=== PATIENT | male | born 1990 | race Two or more races ===

== ENCOUNTER 2022-07-24 12:08 | Emergency (ER) | payer MEDICAID, OTHER, SELFPAY ==
--- NOTE | ~2022-07-24 | XR_ITS ---
EXAMINATION: XR CHEST CLINICAL INFORMATION: Left-sided chest pain. COMPARISON: None TECHNIQUE: 2 views of the chest were obtained. FINDINGS: No significant abnormality is noted involving the heart, lungs, mediastinum, bony thorax or soft tissues. XR/XR chest 2V IMPRESSION: Unremarkable examination.
--- NOTE | 2022-07-24 12:11 | ECG_ITS ---
Test Reason : chest pain Blood Pressure : / mmHG Vent. Rate : 084 BPM Atrial Rate : 084 BPM P-R Int : 148 ms QRS Dur : 096 ms QT Int : 370 ms P-R-T Axes : 050 078 042 degrees QTc Int : 437 ms Normal sinus rhythm Normal ECG No previous ECGs available Referred By: Generic ED Physician Electronically Signed By:ROSALVA MILLER
[2022-07-24 12:22] VITALS: BP 148/85; PULSE 80; RESP 16; TEMP 36.6; O2SAT 98; BMI 32.5
--- NOTE | 2022-07-24 12:22 | ED_ITS ---
HPI - Chest Pain General Chief Complaint: Chest Pain Stated Complaint: Chest pain/Dizziness Time Seen by Provider: 07/24/22 13:29 Related Data Previous Rx's Medication Instructions Recorded hydrochlorothiazide 25 mg tablet 25 mg PO DAILY #30 tabs 07/24/22 Allergies Allergy/AdvReac Type Severity Reaction Status Date / Time No Known Allergies Allergy Verified 07/24/22 12:25 [facility] Past Medical History Medical History (Updated 07/25/22 @ 00:01 by Sharon Camacho) Hypertension Social History Social History Alcohol intake: current Alcohol intake frequency: holidays/special occasions only Smoked in Last 30 Days: No Use of substances other than those prescribed or required for medical reasons: No Advance Directives: No Advance Directives Information Provided: Yes Physical Exam Vital Signs: Vital Signs: Last Vital Signs Temp 97.8 F 07/24/22 12:22 Pulse 74 07/24/22 13:48 Resp 16 07/24/22 12:22 BP 149/90 H 07/24/22 13:48 Pulse Ox 98 07/24/22 12:22 O2 Del Method 07/24/22 12:22 BMI result Body Mass Index 32.5 Course Course Course Narrative: RME - 31 y/o male with history of gastritis who presents to the ER for evaluation of SOB, dizziness and left sided chest pains that radiate to his back for the last 3 weeks. Reports symptoms are constant. No cough or fevers. VSS in triage. Left sided chest pain is reproducible on exam, lungs are clear. Will check CXR and basic labs. EKG already done. Stable to go to waiting room until treatment room available. Medical Decision Making Lab Data 07/24/22 12:37 07/24/22 12:37 Labs: Lab Results 07/24/22 07/24/22 07/24/22 Range/Units 12:37 12:37 12:37 WBC 11.2 H (4.8-10.8) X10*3/uL RBC 5.42 (4.60-5.80) X10*6/uL Hgb 15.2 (14.0-18.0) g/dl Hct 45.0 (42.0-52.0) % MCV 83.0 (80.0-98.0) fL MCH 28.0 (27.0-33.0) pg MCHC 33.8 (31.0-36.0) g/dl RDW 13.5 (11.0-16.0) % Plt Count 528 H (160-400) X10*3/uL MPV 8.8 L (9.4-12.4) fL Immature Gran % (Auto) 0.3 (0.0-0.4) % Neut % (Auto) 55.6 (45-73) % Lymph % (Auto) 34.1 (20-40) % [place] % (Auto) 4.5 (2-11) % Eos % (Auto) 4.7 H (0-4) % Baso % (Auto) 0.8 (0-2) % Lymph # (Auto) 3.8 (1.2-4.9) X10*3/uL [place] # (Auto) 0.5 (0.1-1.2) X10*3/uL Eos # (Auto) 0.5 H (0.0-0.4) X10*3/uL Baso # (Auto) 0.1 (0.0-0.2) X10*3/uL Abs Immat Gran (auto) 0.03 (0.00-0.03) X10*3/uL Absolute Neuts (auto) 6.2 (2.0-8.3) x10*3/uL Absolute Nucleated RBC 0.000 (0.0-0.012) X10*3/uL Nucleated RBC % (auto) 0.0 (0.0-0.2) /100WBC D-Dimer High Sensitivty NG/ML Sodium 140 (135-145) mmol/L Potassium 3.9 (3.3-5.1) mmol/L Chloride 107 (96-108) mmol/L Carbon Dioxide 24 (22-29) mmol/L Anion Gap 13 (12-20) BUN 8 L (9-16) mg/dL Creatinine 0.70 (0.5-1.4) mg/dL Estim Creat Clear Calc 151.9 Estimated GFR > 60 Random Glucose 114 (60-115) mg/dL Calcium 9.4 (8.4-10.2) mg/dL Magnesium 1.9 (1.6-2.6) mg/dL Total Bilirubin 0.9 (0.0-1.0) mg/dL Direct Bilirubin 0.2 (0.0-0.5) mg/dL AST 26 (5-37) U/L ALT 53 H (0-40) U/L Alkaline Phosphatase 124 H (39-117) U/L Troponin I High Sens < 3.5 (<3.5-35.0) ng/L Total Protein 7.4 (6.5-8.0) g/dL Albumin 4.6 (3.5-5.0) g/dL Influenza Type A (PCR) (Negative) Influenza Type B (PCR) (Negative) RSV RNA Qual (PCR) (Negative) SARS-CoV-2 RNA (RT-PCR) (Negative) 07/24/22 07/24/22 Range/Units 12:37 14:14 WBC (4.8-10.8) X10*3/uL RBC (4.60-5.80) X10*6/uL Hgb (14.0-18.0) g/dl Hct (42.0-52.0) % MCV (80.0-98.0) fL MCH (27.0-33.0) pg MCHC (31.0-36.0) g/dl RDW (11.0-16.0) % Plt Count (160-400) X10*3/uL MPV (9.4-12.4) fL Immature Gran % (Auto) (0.0-0.4) % Neut % (Auto) (45-73) % Lymph % (Auto) (20-40) % [place] % (Auto) (2-11) % Eos % (Auto) (0-4) % Baso % (Auto) (0-2) % Lymph # (Auto) (1.2-4.9) X10*3/uL [place] # (Auto) (0.1-1.2) X10*3/uL Eos # (Auto) (0.0-0.4) X10*3/uL Baso # (Auto) (0.0-0.2) X10*3/uL Abs Immat Gran (auto) (0.00-0.03) X10*3/uL Absolute Neuts (auto) (2.0-8.3) x10*3/uL Absolute Nucleated RBC (0.0-0.012) X10*3/uL Nucleated RBC % (auto) (0.0-0.2) /100WBC D-Dimer High Sensitivty < 150 NG/ML Sodium (135-145) mmol/L Potassium (3.3-5.1) mmol/L Chloride (96-108) mmol/L Carbon Dioxide (22-29) mmol/L Anion Gap (12-20) BUN (9-16) mg/dL Creatinine (0.5-1.4) mg/dL Estim Creat Clear Calc Estimated GFR Random Glucose (60-115) mg/dL Calcium (8.4-10.2) mg/dL Magnesium (1.6-2.6) mg/dL Total Bilirubin (0.0-1.0) mg/dL Direct Bilirubin (0.0-0.5) mg/dL AST (5-37) U/L ALT (0-40) U/L Alkaline Phosphatase (39-117) U/L Troponin I High Sens (<3.5-35.0) ng/L Total Protein (6.5-8.0) g/dL Albumin (3.5-5.0) g/dL Influenza Type A (PCR) NEGATIVE (Negative) Influenza Type B (PCR) NEGATIVE (Negative) RSV RNA Qual (PCR) NEGATIVE (Negative) SARS-CoV-2 RNA (RT-PCR) NEGATIVE (Negative) Discharge Plan Discharge Clinical Impression: Atypical chest pain, Chronic hypertension Patient Disposition: Home, Self-Care Instructions: Chest Pain (ED), Hypertension (ED) Additional Instructions: Please follow-up with your primary care physician tomorrow. If you have any worsening or new symptoms, please return to the emergency room or call 911 Prescriptions: New hydrochlorothiazide 25 mg tablet 25 mg PO DAILY Qty: 30 2RF Interventions: ED Discharge Assessment Last Done: 07/24/22 14:59 Discharge Date/Time: 07/24/22 15:11
[2022-07-24 12:43] LABS: MANUAL DIFF FLAG NO
[2022-07-24 12:45] LABS: Basophils Absolute Auto 0.1 X10*3/uL (0.0-0.2); Basophils Percent Auto 0.8 % (0-2); Eosinophils Absolute Auto 0.5 X10*3/uL (0.0-0.4); Eosinophils Percent Auto 4.7 % (0-4); Hemoglobin 15.2 g/dl (14.0-18.0); Imm Gran Abs Auto 0.03 X10*3/uL (0.00-0.03); Imm Gran Pct Auto 0.3 % (0.0-0.4); Lymphocytes Absolute Auto 3.8 X10*3/uL (1.2-4.9); Lymphocytes Percent Auto 34.1 % (20-40); Mean Corpuscular HGB Conc 33.8 g/dl (31.0-36.0); Mean Platelet Volume 8.8 fL (9.4-12.4); Monocytes Absolute Auto 0.5 X10*3/uL (0.1-1.2); Monocytes Percent Auto 4.5 % (2-11); Neutrophils Absolute Auto 6.2 x10*3/uL (2.0-8.3); Neutrophils Percent Auto 55.6 % (45-73); Platelet Count 528 X10*3/uL (160-400); Red Blood Count 5.42 X10*6/uL (4.60-5.80); Red Cell Distribution Width 13.5 % (11.0-16.0); White Blood Count 11.2 X10*3/uL (4.8-10.8)
[2022-07-24 12:59] LABS: Alanine Aminotransferase 53 U/L (0-40); Albumin Level 4.6 g/dL (3.5-5.0); Alkaline Phosphatase 124 U/L (39-117); Anion Gap 13 (12-20); Aspartate Amino Transferase 26 U/L (5-37); Bilirubin Direct 0.2 mg/dL (0.0-0.5); Bilirubin Total 0.9 mg/dL (0.0-1.0); Blood Urea Nitrogen 8 mg/dL (9-16); Calcium 9.4 mg/dL (8.4-10.2); Carbon Dioxide 24 mmol/L (22-29); Chloride 107 mmol/L (96-108); Creatinine Clr Calc Pharmacy 151.9; Estimated Glomerular Filt Rate > 60; Glucose Random 114 mg/dL (60-115); Magnesium 1.9 mg/dL (1.6-2.6); Potassium 3.9 mmol/L (3.3-5.1); Sodium 140 mmol/L (135-145); Total Protein 7.4 g/dL (6.5-8.0)
[2022-07-24 13:08] LABS: Troponin-I High Sensitivity < 3.5 ng/L (<3.5-35.0)
[2022-07-24 13:21] LABS: Influenza A PCR NEGATIVE (Negative); Influenza B PCR NEGATIVE (Negative); Resp Syncy Virus RNA Qual PCR NEGATIVE (Negative); SARS COV2 PCR INHOUSE NEGATIVE (Negative)
[2022-07-24 13:44] VITALS: BP 148/73; PULSE 81
--- NOTE | 2022-07-24 13:44 | ED_ITS ---
HPI - Chest Pain General Chief Complaint: Chest Pain Stated Complaint: Chest pain/Dizziness Time Seen by Provider: 07/24/22 13:29 Source: patient Mode of arrival: ambulatory Limitations: no limitations History of Present Illness HPI narrative: Patient comes to the emergency room complaining of 3 weeks of chest pain and shortness of breath. Patient states that at times he has palpitations, and at night sometimes he feels short of breath. Patient states the pain is constant, nonradiating. Patient stated that he feels dizzy all the time. Patient explains dizziness as feeling weak. Patient denies room spinning, no lightheadedness. Patient reports that he has not seen his primary care physician in over a year. Patient moved from [facility] approximately 1 year ago. Patient states that he is supposed to be taking blood pressure medications patient, but [place] got [place] he has not been able to take his meds. Patient denies any recent URI, GI or UTI symptoms. Related Data Previous Rx's Medication Instructions Recorded hydrochlorothiazide 25 mg tablet 25 mg PO DAILY #30 tabs 07/24/22 Allergies Allergy/AdvReac Type Severity Reaction Status Date / Time No Known Allergies Allergy Verified 07/24/22 12:25 Review of Systems Review of Systems: Constitutional : No Weight loss, No Fever, No Chills, No Night Sweats, complaining of weakness, no malaise ENT/Mouth : No Hearing loss, No Ear Pain, No Nasal Congestion, No Sinus Pain, No Hoarseness, No sore throat, No Rhinorrhea, No Swallowing Difficulty Eyes: No Eye Pain, No Swelling, No Redness, No Foreign Body, No Discharge, No Vision Changes Cardiovascular : Complaining of constant left-sided chest pain, palpitations intermittently Respiratory : No Cough, No Sputum, No Wheezing, No Smoke Exposure, No Dyspnea Gastrointestinal : No Nausea, No Vomiting, No Diarrhea, No Constipation, No abdominal Pain, No Hematochezia, No Melena Genitourinary : no irregular bleeding, No Dysuria, No Urinary Frequency, No Hematuria, No Urinary Incontinence, No Urgency, No Flank Pain, No Urinary Flow Changes, No Hesitancy Musculoskeletal : No joint pain, No Myalgias, No Joint Swelling Skin : No Skin Lesions, No rash Neuro : No Weakness, No Numbness, No Paresthesias, No Loss of Consciousness, No Dizziness, No Headache Psych : No Anxiety/Panic, No Depression, No SI/HI/AH/VH, No Social Issues, Heme/Lymph: No Bruising, No Bleeding,No Lymphadenopathy Endocrine : No Polyuria, No Polydipsia, No Temperature Intolerance [facility] Past Medical History Medical History (Updated 07/24/22 @ 14:56 by Teresa Martin MD) Hypertension Social History Social History Alcohol intake: current Alcohol intake frequency: holidays/special occasions only Smoked in Last 30 Days: No Use of substances other than those prescribed or required for medical reasons: No Advance Directives: No Advance Directives Information Provided: Yes Physical Exam Vital Signs: Vital Signs: Last Vital Signs Temp 97.8 F 07/24/22 12:22 Pulse 74 07/24/22 13:48 Resp 16 07/24/22 12:22 BP 149/90 H 07/24/22 13:48 Pulse Ox 98 07/24/22 12:22 O2 Del Method 07/24/22 12:22 BMI result Body Mass Index 32.5 Const: Other: Appearance: Alert. Oriented X3. No acute distress. Eyes: Pupils equal, round and reactive to light. ENT: Pharynx normal. Neck: Normal inspection. Neck supple. No lymph nodes noted. No crepitus CVS: Normal heart rate and rhythm. Pulses normal. Normal S1 and S2 Respiratory: No respiratory distress. Breath sounds normal. No Wheezing. No rales Abdomen: Soft and nontender. No rigidity. No distention. Skin: Skin warm and dry. Normal skin color. Normal skin turgor. Extremities: No lower extremity edema. No Lacerations. No Rash Neuro: Oriented X 3. No motor deficit. No sensory deficit. Moving all extremities. No slurred speech. CN 2 through 12 grossly intact Psych: calm, cooperative, normal affect Course Course Course Narrative: -patient's troponin negative. EKG within normal limits, no acute abnormalities -D-dimer and chest x-ray pending -orthostatic vitals pending Medical Decision Making Medical Decision Making MDM Narrative: -patient's troponin negative, D-dimer negative, chest x-ray negative, EKG within normal limits, orthostatic vitals negative. -patient's blood pressure elevated, 149/90. Patient will be started on hydrochlorothiazide. -wells criteria for pulmonary embolism score is 0 Differential Diagnosis Differential Diagnoses: The differential diagnosis associated with the presentation includes (ACS, costochondritis, pneumonia, PE) Lab Data MDM Lab Attestation statement: I reviewed the patient's lab results. 07/24/22 12:37 07/24/22 12:37 Labs: Lab Results 07/24/22 07/24/22 07/24/22 Range/Units 12:37 12:37 12:37 WBC 11.2 H (4.8-10.8) X10*3/uL RBC 5.42 (4.60-5.80) X10*6/uL Hgb 15.2 (14.0-18.0) g/dl Hct 45.0 (42.0-52.0) % MCV 83.0 (80.0-98.0) fL MCH 28.0 (27.0-33.0) pg MCHC 33.8 (31.0-36.0) g/dl RDW 13.5 (11.0-16.0) % Plt Count 528 H (160-400) X10*3/uL MPV 8.8 L (9.4-12.4) fL Immature Gran % (Auto) 0.3 (0.0-0.4) % Neut % (Auto) 55.6 (45-73) % Lymph % (Auto) 34.1 (20-40) % [place] % (Auto) 4.5 (2-11) % Eos % (Auto) 4.7 H (0-4) % Baso % (Auto) 0.8 (0-2) % Lymph # (Auto) 3.8 (1.2-4.9) X10*3/uL [place] # (Auto) 0.5 (0.1-1.2) X10*3/uL Eos # (Auto) 0.5 H (0.0-0.4) X10*3/uL Baso # (Auto) 0.1 (0.0-0.2) X10*3/uL Abs Immat Gran (auto) 0.03 (0.00-0.03) X10*3/uL Absolute Neuts (auto) 6.2 (2.0-8.3) x10*3/uL Absolute Nucleated RBC 0.000 (0.0-0.012) X10*3/uL Nucleated RBC % (auto) 0.0 (0.0-0.2) /100WBC D-Dimer High Sensitivty NG/ML Sodium 140 (135-145) mmol/L Potassium 3.9 (3.3-5.1) mmol/L Chloride 107 (96-108) mmol/L Carbon Dioxide 24 (22-29) mmol/L Anion Gap 13 (12-20) BUN 8 L (9-16) mg/dL Creatinine 0.70 (0.5-1.4) mg/dL Estim Creat Clear Calc 151.9 Estimated GFR > 60 Random Glucose 114 (60-115) mg/dL Calcium 9.4 (8.4-10.2) mg/dL Magnesium 1.9 (1.6-2.6) mg/dL Total Bilirubin 0.9 (0.0-1.0) mg/dL Direct Bilirubin 0.2 (0.0-0.5) mg/dL AST 26 (5-37) U/L ALT 53 H (0-40) U/L Alkaline Phosphatase 124 H (39-117) U/L Troponin I High Sens < 3.5 (<3.5-35.0) ng/L Total Protein 7.4 (6.5-8.0) g/dL Albumin 4.6 (3.5-5.0) g/dL Influenza Type A (PCR) (Negative) Influenza Type B (PCR) (Negative) RSV RNA Qual (PCR) (Negative) SARS-CoV-2 RNA (RT-PCR) (Negative) 07/24/22 07/24/22 Range/Units 12:37 14:14 WBC (4.8-10.8) X10*3/uL RBC (4.60-5.80) X10*6/uL Hgb (14.0-18.0) g/dl Hct (42.0-52.0) % MCV (80.0-98.0) fL MCH (27.0-33.0) pg MCHC (31.0-36.0) g/dl RDW (11.0-16.0) % Plt Count (160-400) X10*3/uL MPV (9.4-12.4) fL Immature Gran % (Auto) (0.0-0.4) % Neut % (Auto) (45-73) % Lymph % (Auto) (20-40) % [place] % (Auto) (2-11) % Eos % (Auto) (0-4) % Baso % (Auto) (0-2) % Lymph # (Auto) (1.2-4.9) X10*3/uL [place] # (Auto) (0.1-1.2) X10*3/uL Eos # (Auto) (0.0-0.4) X10*3/uL Baso # (Auto) (0.0-0.2) X10*3/uL Abs Immat Gran (auto) (0.00-0.03) X10*3/uL Absolute Neuts (auto) (2.0-8.3) x10*3/uL Absolute Nucleated RBC (0.0-0.012) X10*3/uL Nucleated RBC % (auto) (0.0-0.2) /100WBC D-Dimer High Sensitivty < 150 NG/ML Sodium (135-145) mmol/L Potassium (3.3-5.1) mmol/L Chloride (96-108) mmol/L Carbon Dioxide (22-29) mmol/L Anion Gap (12-20) BUN (9-16) mg/dL Creatinine (0.5-1.4) mg/dL Estim Creat Clear Calc Estimated GFR Random Glucose (60-115) mg/dL Calcium (8.4-10.2) mg/dL Magnesium (1.6-2.6) mg/dL Total Bilirubin (0.0-1.0) mg/dL Direct Bilirubin (0.0-0.5) mg/dL AST (5-37) U/L ALT (0-40) U/L Alkaline Phosphatase (39-117) U/L Troponin I High Sens (<3.5-35.0) ng/L Total Protein (6.5-8.0) g/dL Albumin (3.5-5.0) g/dL Influenza Type A (PCR) NEGATIVE (Negative) Influenza Type B (PCR) NEGATIVE (Negative) RSV RNA Qual (PCR) NEGATIVE (Negative) SARS-CoV-2 RNA (RT-PCR) NEGATIVE (Negative) Independent Interpretation I performed an independent interpretation of an: EKG (EKG my interpretation: Normal sinus rhythm, heart rate 84, no ST segment depression or elevation, no T- wave inversion, QTC 437) and Plain X-Ray (My chest x-ray interpretation:) Radiology Impression Discussion of test interpretation with radiology: I have reviewed the radiologist's reading. Radiologist Impression: FINDINGS: No significant abnormality is noted involving the heart, lungs, mediastinum, bony thorax or soft tissues. XR/XR chest 2V IMPRESSION: Unremarkable examination. Discharge Plan Discharge Clinical Impression: Atypical chest pain, Chronic hypertension Patient Disposition: Home, Self-Care Instructions: Chest Pain (ED), Hypertension (ED) Additional Instructions: Please follow-up with your primary care physician tomorrow. If you have any worsening or new symptoms, please return to the emergency room or call 911 Prescriptions: New hydrochlorothiazide 25 mg tablet 25 mg PO DAILY Qty: 30 2RF
[2022-07-24 13:46] VITALS: BP 160/89; PULSE 70
[2022-07-24 13:48] VITALS: BP 149/90; PULSE 74
--- NOTE | 2022-07-24 14:06 | PC.NURSE ---
a&ox3, supervisory aide used, ortho stats done, head to toe assessment done. pt spoke to provider, awaiting lab results, call pruett in reach. will continue to monitor.
[2022-07-24 14:33] LABS: D Dimer High Sensitivity < 150 NG/ML
== END 2022-07-24 15:11 | disposition home or self-care (01) ==
PROVIDERS: Physician Assistant; Emergency Provider Emergency Medicine
DX: R07.89 Other chest pain (principal); I10 Essential (primary) hypertension; Z20.822 Contact with and (suspected) exposure to COVID-19; Z20.828 Contact with and (suspected) exposure to other viral communicable diseases
CPT/HCPCS: 0241U; 36415; 71046; 80048; 80076; 83735; 84484; 85025; 85379; 93005; 99283; 99285

== ENCOUNTER 2022-07-31 12:06 | Emergency (ER) | payer MEDICAID, OTHER, SELFPAY ==
--- NOTE | ~2022-07-31 | CT_ITS ---
EXAMINATION: CT HEAD WITHOUT IV CONTRAST INDICATION: Dizziness and blurry vision. COMPARISON: None available. TECHNIQUE: Multidetector CT acquisitions of the head was obtained without IV contrast. This CT examination was performed using dose optimization techniques as appropriate, variously including the following: *Automated exposure control *Adjustment of mA and/or kV according to patient size (this includes techniques or standardized protocols for targeted exams where dose is matched to indication/reason for exam; i.e. extremities or head) *Use of iterative reconstruction technique FINDINGS: There is no intracranial hemorrhage, hydrocephalus, extra-axial surface collection, midline shift, or other herniation pattern. Brown to white matter differentiation is diffusely maintained without evidence of an evolved acute territorial infarct. The basilar cisterns are preserved. No significant soft tissue abnormality. No acute osseous abnormality. The paranasal sinuses and the mastoid air cells are well aerated. CT/CT head/brain wo IV con IMPRESSION: No acute intracranial abnormality.
--- NOTE | ~2022-07-31 | XR_ITS ---
EXAMINATION: XR CHEST 2 VIEWS CLINICAL INFORMATION: Chest pain. COMPARISON: None. TECHNIQUE: Frontal and lateral views of the chest were obtained. FINDINGS: The heart, great vessels, pulmonary vasculature and mediastinum are normal. The lungs show no focal infiltrate, effusion or pneumothorax. There is no acute osseous abnormality. XR/XR chest 2V IMPRESSION: No active cardiopulmonary disease.
[2022-07-31 12:31] VITALS: BP 154/93; PULSE 75; RESP 18; TEMP 36.8; O2SAT 98; BMI 33.6
--- NOTE | 2022-07-31 12:31 | ED_ITS ---
HPI - Chest Pain General Chief Complaint: Arrhythmia/Palpitations <Domitila Danielson NP - Last Filed: 07/31/22 12:34> Stated Complaint: chest pressure rapid heart beat <Domitila Danielson NP - Last Filed: 07/31/22 12:34> Time Seen by Provider: 07/31/22 16:27 <Domitila Danielson NP - Last Filed: 07/31/22 12:34> Source: patient <NEREIDA Valladares - Last Filed: 07/31/22 17:56> Mode of arrival: ambulatory <NEREIDA Valladares - Last Filed: 07/31/22 17:56> History of Present Illness HPI narrative: 31-year-old male with past medical history of hypertension recently started on HCTZ presenting to the ED complaining of chest pain, shortness of breath, palpitations, room spinning dizziness worse with position changes, headache, blurry vision x years worsening over the past 2 days. Patient was seen and treated in our ED 07/24/2022 for similar symptoms and had negative workup. Denies abdominal pain, nausea/ vomiting, pedal edema <NEREIDA Valladares - Last Filed: 07/31/22 17:56> MD complaint: chest pain <NEREIDA Valladares Last Filed: 07/31/22 17:56> Onset (ago): year(s) <NEREIDA Valladares Last Filed: 07/31/22 17:56> Related Data Home Medications: Previous Rx's Medication Instructions Recorded hydrochlorothiazide 25 mg tablet 25 mg PO DAILY #30 tabs 07/24/22 <Domitila Danielson NP - Last Filed: 07/31/22 12:34> Allergies/Adverse Reactions: Allergies Allergy/AdvReac Type Severity Reaction Status Date / Time No Known Allergies Allergy Verified 07/24/22 12:25 <Domitila Danielson NP - Last Filed: 07/31/22 12:34> Review of Systems Review of Systems: Constitutional: No Fever, No Chills, No Fatigue, No Malaise ENT/Mouth: No Ear Pain, No Nasal Congestion, No sore throat, No Rhinorrhea, No Swallowing Difficulty Eyes: No Eye Pain, No Swelling, No Redness, No Discharge, + Vision Changes Cardiovascular: + Chest Pain, + SOB, No Edema, + Palpitations Respiratory: No Cough, No Sputum, No Wheezing, No Smoke Exposure, No Dyspnea Gastrointestinal: No Nausea, No Vomiting, No Diarrhea, No Constipation, No Abdominal pain Genitourinary: No Dysuria, No Urinary Frequency, No Hematuria, No Urinary Incontinence/retention, No Flank Pain Musculoskeletal: No joint pain, No Myalgias, No Joint Swelling Skin: No Skin Lesions, No rash Neuro: No Weakness, No Numbness, No Paresthesias, No Loss of Consciousness, + Dizziness, + Headache <NEREIDA Valladares - Last Filed: 07/31/22 17:56> Yes all other systems are reviewed and are negative <NEREIDA Valladares - Last Filed: 07/31/22 17:56> Constitutional: Constitutional: Reports as per HPI <NEREIDA Valladares - Last Filed: 07/31/22 17:56> Neurologic: Denies Abnormal speech present <NEREIDA Valladares - Last Filed: 07/31/22 17:56> [facility] Past Medical History Attestation statement: The following information was validated with the patient. <NEREIDA Valladares - Last Filed: 07/31/22 17:56> Medical History: Medical History Hypertension <Domitila Danielson NP - Last Filed: 07/31/22 12:34> Social History Social History: Social History Alcohol intake: current Alcohol intake frequency: holidays/special occasions only Smoked in Last 30 Days: No Use of substances other than those prescribed or required for medical reasons: No Advance Directives: No Advance Directives Information Provided: Yes <Domitila Danielson NP - Last Filed: 07/31/22 12:34> Physical Exam Vital Signs: Vital Signs: Last Vital Signs Temp 98.3 F 07/31/22 12:31 Pulse 65 07/31/22 16:45 Resp 20 07/31/22 16:37 BP 132/87 07/31/22 16:42 Pulse Ox 99 07/31/22 16:37 O2 Del Method 07/31/22 16:37 BMI result Body Mass Index 33.6 <Domitila Danielson NP - Last Filed: 07/31/22 12:34> Vital Signs: Last Vital Signs Temp 98.3 F 07/31/22 12:31 Pulse 65 07/31/22 16:45 Resp 20 07/31/22 16:37 BP 132/87 07/31/22 16:42 Pulse Ox 99 07/31/22 16:37 O2 Del Method 07/31/22 16:37 BMI result Body Mass Index 33.6 <NEREIDA Valladares - Last Filed: 07/31/22 17:56> Const: General: cooperative, healthy appearing, comfortable and no acute distress <NEREIDA Valladares - Last Filed: 07/31/22 17:56> Orientation/consciousness: patient oriented x3 <NEREIDA Valladares - Last Filed: 07/31/22 17:56> Limitations: no limitations <NEREIDA Valladares - Last Filed: 07/31/22 17:56> HEENT: Head: Yes normal to inspection and Yes atraumatic <NEREIDA Valladares - Last Filed: 07/31/22 17:56> Ears: hearing grossly normal bilaterally <NEREIDA Valladares - Last Filed: 07/31/22 17:56> General nose exam: Normal external nose present <NEREIDA Valladares - Last Filed: 07/31/22 17:56> Face and sinus: Yes normal facial exam <NEREIDA Valladares - Last Filed: 07/31/22 17:56> Throat: Yes posterior oropharynx normal <NEREIDA Valladares - Last Filed: 07/31/22 17:56> Eyes: General: appearance normal, both eyes and all related structures <NEREIDA Valladares - Last Filed: 07/31/22 17:56> Pupils: Equal, round and reactive pupils present <NEREIDA Valladares - Last Filed: 07/31/22 17:56> EOM: EOMs intact bilaterally <NEREIDA Valladares - Last Filed: 07/31/22 17:56> Neck: Neck: Yes normal visual inspection and Yes no meningeal signs <Hillary Dowell PA - Last Filed: 07/31/22 17:56> Chest: Chest palpation & inspection: normal inspection of the chest, no crepitus and no tenderness <Hillary Dowell PA - Last Filed: 07/31/22 17:56> Resp: Effort & Inspection: normal respiratory effort and no respiratory distress <Hillary Dowell PA - Last Filed: 07/31/22 17:56> Auscultation: clear to auscultation bilaterally, no crackles, no rales, no rhonchi and no wheezes <Hillary Dowell PA - Last Filed: 07/31/22 17:56> Cardio: Rate: regular rate <Hillary Dowell PA - Last Filed: 07/31/22 17:56> Heart sounds: S1 normal heart sound present and S2 normal heart sound present <Hillary Dowell PA - Last Filed: 07/31/22 17:56> GI: Inspection: Yes normal to inspection <Hillary Dowell PA - Last Filed: 07/31/22 17:56> Palpation (GI): Soft to palpation, nontender, no guarding and not rigid <Hilalry Dowell PA - Last Filed: 07/31/22 17:56> Skin: Rashes: no rashes <Hillary Dowell PA - Last Filed: 07/31/22 17:56> Wounds: no wounds <Hillary Dowell PA - Last Filed: 07/31/22 17:56> Neuro: General: patient oriented x3, gait normal, tone normal, moves all extremities, no meningeal signs, no focal motor deficits and CN's II-XI intact bilaterally <Hillary Dowell PA - Last Filed: 07/31/22 17:56> Cranial nerves: Yes CN's II-XII intact bilaterally and Yes Equal, round and reactive pupils present <Hillary Poulwinnie PA - Last Filed: 07/31/22 17:56> Cognition (Neuro): normal cognition <Hillary Poulwinnie PA - Last Filed: 07/31/22 17:56> Speech: No Abnormal speech present <Hillary Dowell PA - Last Filed: 07/31/22 17:56> Gait exam (Neuro): Normal gait present <NEREIDA Valladares - Last Filed: 07/31 17:56> Motor exam (neuro): 5/5 motor strength present throughout and Pronator motor function not present <NEREIDA Valladares - Last Filed: 07/31/22 17:56> Coordination: [id number] test normal <NEREIDA Valladares - Last Filed: 07/31/22 17:56> Romberg Test: Negative <NEREIDA Valladares - Last Filed: 07/31/22 17:56> Extrem: General: Yes normal to inspection, Yes no pedal edema and Yes no calf tenderness <NEREIDA Valladares - Last Filed: 07/31/22 17:56> Course Course Course Narrative: This is rapid medical exam. Deferred additional HPI, ROS, PE to primary provider. 31 yo male with history of gastritis, HLD here with complaints of dizziness, chest pain, palpitations x years, worsened Sunday. Will need labs, EKG, CXR, COVID testing. VSS <Domitila Danielson NP - Last Filed: 07/31/22 12:34> This is rapid medical exam. Deferred additional HPI, ROS, PE to primary provider. 31 yo male with history of gastritis, HLD here with complaints of dizziness, chest pain, palpitations x years, worsened Sunday. Will need labs, EKG, CXR, COVID testing. VSS -1651-- no leukocytosis. Troponin negative. Total bilirubin mildly elevated. ALT /alk-phos acute on chronically elevated - orthostatic vital signs negative. TSH WNL. COVID-19 negative. - CXR and head CT unremarkable. Results discussed with freelance interpreter/translator w/ patient including worrisome signs and symptoms and strict return precautions, and when to return to the emergency department. They verbalized understanding and feel safe for discharge at this time. <NEREIDA Valladares - Last Filed: 07/31/22 17:56> Medical Decision Making Medical Decision Making MDM Narrative: 31-year-old male with past medical history of hypertension recently started on HCTZ presenting to the ED complaining of chest pain, shortness of breath, palpitations, room spinning dizziness worse with position changes, headache, blurry vision x years worsening over the past 2 days. on exam vital signs stable, NAD, nontoxic appearing, lungs CTA, abdomen soft/nontender, no focal neuro deficits, no nystagmus, ambulating with steady gait, no ataxia. Concern for anxiety vs BPPV vs dehydration/metabolic abnormalities. Low suspicion for ACS/ PE, CHF, intracranial mass /hemorrhage with 3 bailey of symptoms. Low suspicion for cervical dissection. Plan: EKG, labs, UA, CXR, head CT, orthostatic vital signs Please refer to course for remaining clinical decision making, interpretation of labs/imaging results, and discussions with consultants and/or family members. < NEREIDA Valladares - Last Filed: 07/31/22 17:56> Differential Diagnosis Differential Diagnoses: The differential diagnosis associated with the presentation includes <NEREIDA Valladares - Last Filed: 07/31/22 17:56> as above <NEREIDA Valladares - Last Filed: 07/31/22 17:56> Admission/Observation Consideration of admission/observation: Escalation of care including admission/observation considered <NEREIDA Valladares - Last Filed: 07/31/22 17:56> Lab Data MDM Lab Attestation statement: I reviewed the patient's lab results. <NEREIDA Valladares - Last Filed: 07/04 17:56> Result Diagrams: 07/31/22 12:53 07/31/22 12:53 <Domitila Danielson NP - Last Filed: 07/31/22 12:34> Labs: Lab Results 07/31/22 07/31/22 07/31/22 Range/Units 12:53 12:53 12:53 WBC 10.7 (4.8-10.8) X10*3/uL RBC 5.46 (4.60-5.80) X10*6/uL Hgb 15.7 (14.0-18.0) g/dl Hct 44.8 (42.0-52.0) % MCV 82.1 (80.0-98.0) fL MCH 28.8 (27.0-33.0) pg MCHC 35.0 (31.0-36.0) g/dl RDW 13.3 (11.0-16.0) % Plt Count 587 H (160-400) X10*3/uL MPV 9.6 (9.4-12.4) fL Immature Gran % (Auto) 0.3 (0.0-0.4) % Neut % (Auto) 58.2 (45-73) % Lymph % (Auto) 32.1 (20-40) % [place] % (Auto) 5.5 (2-11) % Eos % (Auto) 3.0 (0-4) % Baso % (Auto) 0.9 (0-2) % Lymph # (Auto) 3.4 (1.2-4.9) X10*3/uL [place] # (Auto) 0.6 (0.1-1.2) X10*3/uL Eos # (Auto) 0.3 (0.0-0.4) X10*3/uL Baso # (Auto) 0.1 (0.0-0.2) X10*3/uL Abs Immat Gran (auto) 0.03 (0.00-0.03) X10*3/uL Absolute Neuts (auto) 6.2 (2.0-8.3) x10*3/uL Absolute Nucleated RBC 0.000 (0.0-0.012) X10*3/uL Nucleated RBC % (auto) 0.0 (0.0-0.2) /100WBC Sodium 139 (135-145) mmol/L Potassium 3.8 (3.3-5.1) mmol/L Chloride 103 (96-108) mmol/L Carbon Dioxide 24 (22-29) mmol/L Anion Gap 16 (12-20) BUN 11 (9-16) mg/dL Creatinine 0.77 (0.5-1.4) mg/dL Estim Creat Clear Calc 133.6 Estimated GFR > 60 Random Glucose 94 (60-115) mg/dL Calcium 9.8 (8.4-10.2) mg/dL Magnesium 2.3 (1.6-2.6) mg/dL Total Bilirubin 1.5 H (0.0-1.0) mg/dL Direct Bilirubin 0.3 (0.0-0.5) mg/dL AST 25 (5-37) U/L ALT 47 H (0-40) U/L Alkaline Phosphatase 124 H (39-117) U/L Troponin I High Sens < 3.5 (<3.5-35.0) ng/L Total Protein 7.9 (6.5-8.0) g/dL Albumin 4.9 (3.5-5.0) g/dL TSH 1.08 (0.32-4.0) uIU/mL COVID-19 ([facility]) (Negative) COVID-19 Clin Com 07/31/22 Range/Units 12:53 WBC (4.8-10.8) X10*3/uL RBC (4.60-5.80) X10*6/uL Hgb (14.0-18.0) g/dl Hct (42.0-52.0) % MCV (80.0-98.0) fL MCH (27.0-33.0) pg MCHC (31.0-36.0) g/dl RDW (11.0-16.0) % Plt Count (160-400) X10*3/uL MPV (9.4-12.4) fL Immature Gran % (Auto) (0.0-0.4) % Neut % (Auto) (45-73) % Lymph % (Auto) (20-40) % [place] % (Auto) (2-11) % Eos % (Auto) (0-4) % Baso % (Auto) (0-2) % Lymph # (Auto) (1.2-4.9) X10*3/uL [place] # (Auto) (0.1-1.2) X10*3/uL Eos # (Auto) (0.0-0.4) X10*3/uL Baso # (Auto) (0.0-0.2) X10*3/uL Abs Immat Gran (auto) (0.00-0.03) X10*3/uL Absolute Neuts (auto) (2.0-8.3) x10*3/uL Absolute Nucleated RBC (0.0-0.012) X10*3/uL Nucleated RBC % (auto) (0.0-0.2) /100WBC Sodium (135-145) mmol/L Potassium (3.3-5.1) mmol/L Chloride (96-108) mmol/L Carbon Dioxide (22-29) mmol/L Anion Gap (12-20) BUN (9-16) mg/dL Creatinine (0.5-1.4) mg/dL Estim Creat Clear Calc Estimated GFR Random Glucose (60-115) mg/dL Calcium (8.4-10.2) mg/dL Magnesium (1.6-2.6) mg/dL Total Bilirubin (0.0-1.0) mg/dL Direct Bilirubin (0.0-0.5) mg/dL AST (5-37) U/L ALT (0-40) U/L Alkaline Phosphatase (39-117) U/L Troponin I High Sens (<3.5-35.0) ng/L Total Protein (6.5-8.0) g/dL Albumin (3.5-5.0) g/dL TSH (0.32-4.0) uIU/mL COVID-19 ([facility]) Negative (Negative) COVID-19 Clin Com See Note <Domitila Danielson NP - Last Filed: 07/31/22 12:34> Lab Results 07/31/22 07/31/22 07/31/22 Range/Units 12:53 12:53 12:53 WBC 10.7 (4.8-10.8) X10*3/uL RBC 5.46 (4.60-5.80) X10*6/uL Hgb 15.7 (14.0-18.0) g/dl Hct 44.8 (42.0-52.0) % MCV 82.1 (80.0-98.0) fL MCH 28.8 (27.0-33.0) pg MCHC 35.0 (31.0-36.0) g/dl RDW 13.3 (11.0-16.0) % Plt Count 587 H (160-400) X10*3/uL MPV 9.6 (9.4-12.4) fL Immature Gran % (Auto) 0.3 (0.0-0.4) % Neut % (Auto) 58.2 (45-73) % Lymph % (Auto) 32.1 (20-40) % [place] % (Auto) 5.5 (2-11) % Eos % (Auto) 3.0 (0-4) % Baso % (Auto) 0.9 (0-2) % Lymph # (Auto) 3.4 (1.2-4.9) X10*3/uL [place] # (Auto) 0.6 (0.1-1.2) X10*3/uL Eos # (Auto) 0.3 (0.0-0.4) X10*3/uL Baso # (Auto) 0.1 (0.0-0.2) X10*3/uL Abs Immat Gran (auto) 0.03 (0.00-0.03) X10*3/uL Absolute Neuts (auto) 6.2 (2.0-8.3) x10*3/uL Absolute Nucleated RBC 0.000 (0.0-0.012) X10*3/uL Nucleated RBC % (auto) 0.0 (0.0-0.2) /100WBC Sodium 139 (135-145) mmol/L Potassium 3.8 (3.3-5.1) mmol/L Chloride 103 (96-108) mmol/L Carbon Dioxide 24 (22-29) mmol/L Anion Gap 16 (12-20) BUN 11 (9-16) mg/dL Creatinine 0.77 (0.5-1.4) mg/dL Estim Creat Clear Calc 133.6 Estimated GFR > 60 Random Glucose 94 (60-115) mg/dL Calcium 9.8 (8.4-10.2) mg/dL Magnesium 2.3 (1.6-2.6) mg/dL Total Bilirubin 1.5 H (0.0-1.0) mg/dL Direct Bilirubin 0.3 (0.0-0.5) mg/dL AST 25 (5-37) U/L ALT 47 H (0-40) U/L Alkaline Phosphatase 124 H (39-117) U/L Troponin I High Sens < 3.5 (<3.5-35.0) ng/L Total Protein 7.9 (6.5-8.0) g/dL Albumin 4.9 (3.5-5.0) g/dL TSH 1.08 (0.32-4.0) uIU/mL COVID-19 ([facility]) (Negative) COVID-19 Clin Com 01/30/23 Range/Units 12:53 WBC (4.8-10.8) X10*3/uL RBC (4.60-5.80) X10*6/uL Hgb (14.0-18.0) g/dl Hct (42.0-52.0) % MCV (80.0-98.0) fL MCH (27.0-33.0) pg MCHC (31.0-36.0) g/dl RDW (11.0-16.0) % Plt Count (160-400) X10*3/uL MPV (9.4-12.4) fL Immature Gran % (Auto) (0.0-0.4) % Neut % (Auto) (45-73) % Lymph % (Auto) (20-40) % [place] % (Auto) (2-11) % Eos % (Auto) (0-4) % Baso % (Auto) (0-2) % Lymph # (Auto) (1.2-4.9) X10*3/uL [place] # (Auto) (0.1-1.2) X10*3/uL Eos # (Auto) (0.0-0.4) X10*3/uL Baso # (Auto) (0.0-0.2) X10*3/uL Abs Immat Gran (auto) (0.00-0.03) X10*3/uL Absolute Neuts (auto) (2.0-8.3) x10*3/uL Absolute Nucleated RBC (0.0-0.012) X10*3/uL Nucleated RBC % (auto) (0.0-0.2) /100WBC Sodium (135-145) mmol/L Potassium (3.3-5.1) mmol/L Chloride (96-108) mmol/L Carbon Dioxide (22-29) mmol/L Anion Gap (12-20) BUN (9-16) mg/dL Creatinine (0.5-1.4) mg/dL Estim Creat Clear Calc Estimated GFR Random Glucose (60-115) mg/dL Calcium (8.4-10.2) mg/dL Magnesium (1.6-2.6) mg/dL Total Bilirubin (0.0-1.0) mg/dL Direct Bilirubin (0.0-0.5) mg/dL AST (5-37) U/L ALT (0-40) U/L Alkaline Phosphatase (39-117) U/L Troponin I High Sens (<3.5-35.0) ng/L Total Protein (6.5-8.0) g/dL Albumin (3.5-5.0) g/dL TSH (0.32-4.0) uIU/mL COVID-19 ([facility]) Negative (Negative) COVID-19 Clin Com See Note <NEREIDA Valladares - Last Filed: 07/31/22 17:56> Independent Interpretation I performed an independent interpretation of an: EKG ( my interpretation EKG is normal sinus rhythm at a rate of 70. NC interval 160. QTC 419. No STEMI.) <NEREIDA Valladares - Last Filed: 07/31/22 17:56> Radiology Impression Discussion of test interpretation with radiology: I have reviewed the radiologist's reading. <NEREIDA Valladares - Last Filed: 07/31/22 17:56> External Record Review prior any record <NEREIDA Valladares - Last Filed: 07/31/22 17:56> Chronic Conditions Patient?s care impacted by: Hypertension <NEREIDA Valladares - Last Filed: 07/31/22 17:56> Social Determinants Patient?s care significantly limited by Social Determinants of Health including: Other Social Determinant of Health <NEREIDA Valladares - Last Filed: 07/31/22 17:56> Discharge Plan Discharge Clinical Impression: Palpitations, Atypical chest pain, Dizziness <Domitila Danielson NP - Last Filed: 07/31/22 12:34> Patient Disposition: Home, Self-Care <Domitila Danielson NP - Last Filed: 07/31/22 12:34> Instructions: Heart Palpitations (DC), Dizziness (ED), Noncardiac Chest Pain (ED) <Domitila Danielson NP - Last Filed: 07/31/22 12:34> Additional Instructions: your blood work was reassuring today. Your head CT and chest x-ray were unremarkable. Please establish care with a primary care doctor and he should also follow-up with Cardiology. Meclizine can help with dizziness, take as needed. If her symptoms persist or worsen return to the emergency department romero an?lisis de boogie fue tranquilizador hoy. La tomograf?a computarizada de la wai y la radiograf?a de t?rax fueron normales. Por favor, establezca atenci?n con un m?dico de atenci?n primaria y tambi?n debe hacer un seguimiento con Cardiolog?a. La meclizina puede ayudar con los mareos, t?kia seg?n sea necesario. Si kevin s?ntomas persisten o empeoran, vuelva al servicio de urgencias. <Domitila Danielson NP - Last Filed: 07/31/22 12:34> Prescriptions: No Action hydrochlorothiazide 25 mg tablet 25 mg PO DAILY Qty: 30 2RF <Domitila Danielson NP - Last Filed: 07/31/22 12:34> Referrals: [facility] – [place] [facility] [place] [facility] [place] [facility] [place] Group[place] <Domitila Danielson NP - Last Filed: 07/31/22 12:34> Print Language: Brazilian <Domitila Danielson NP - Last Filed: 07/31/22 12:34>
--- NOTE | 2022-07-31 12:31 | ECG_ITS ---
Test Reason : chest pressure Blood Pressure : / mmHG Vent. Rate : 070 BPM Atrial Rate : 070 BPM P-R Int : 160 ms QRS Dur : 100 ms QT Int : 388 ms P-R-T Axes : 035 067 019 degrees QTc Int : 419 ms Normal sinus rhythm Normal ECG When compared with ECG of 24-JUL-2022 12:17, No significant change was found Referred By: Domitila Danielson Electronically Signed By:Chavo Glover
[2022-07-31 13:53] LABS: MANUAL DIFF FLAG NO
[2022-07-31 13:56] LABS: Basophils Absolute Auto 0.1 X10*3/uL (0.0-0.2); Basophils Percent Auto 0.9 % (0-2); Eosinophils Absolute Auto 0.3 X10*3/uL (0.0-0.4); Hematocrit 44.8 % (42.0-52.0); Hemoglobin 15.7 g/dl (14.0-18.0); Imm Gran Abs Auto 0.03 X10*3/uL (0.00-0.03); Imm Gran Pct Auto 0.3 % (0.0-0.4); Lymphocytes Absolute Auto 3.4 X10*3/uL (1.2-4.9); Lymphocytes Percent Auto 32.1 % (20-40); Mean Corpuscular Hemoglobin 28.8 pg (27.0-33.0); Mean Corpuscular Volume 82.1 fL (80.0-98.0); Mean Platelet Volume 9.6 fL (9.4-12.4); Monocytes Absolute Auto 0.6 X10*3/uL (0.1-1.2); Monocytes Percent Auto 5.5 % (2-11); Neutrophils Absolute Auto 6.2 x10*3/uL (2.0-8.3); Neutrophils Percent Auto 58.2 % (45-73); Platelet Count 587 X10*3/uL (160-400); Red Blood Count 5.46 X10*6/uL (4.60-5.80); Red Cell Distribution Width 13.3 % (11.0-16.0); White Blood Count 10.7 X10*3/uL (4.8-10.8)
[2022-07-31 14:15] LABS: COVID-19 Test Negative (Negative); IDNOW Serial# 16C4AD1C
[2022-07-31 14:16] LABS: Alanine Aminotransferase 47 U/L (0-40); Albumin Level 4.9 g/dL (3.5-5.0); Alkaline Phosphatase 124 U/L (39-117); Anion Gap 16 (12-20); Aspartate Amino Transferase 25 U/L (5-37); Bilirubin Direct 0.3 mg/dL (0.0-0.5); Bilirubin Total 1.5 mg/dL (0.0-1.0); Blood Urea Nitrogen 11 mg/dL (9-16); Calcium 9.8 mg/dL (8.4-10.2); Carbon Dioxide 24 mmol/L (22-29); Chloride 103 mmol/L (96-108); Creatinine Clr Calc Pharmacy 133.6; Estimated Glomerular Filt Rate > 60; Glucose Random 94 mg/dL (60-115); Magnesium 2.3 mg/dL (1.6-2.6); Potassium 3.8 mmol/L (3.3-5.1); Sodium 139 mmol/L (135-145); Total Protein 7.9 g/dL (6.5-8.0)
[2022-07-31 14:46] LABS: Troponin-I High Sensitivity < 3.5 ng/L (<3.5-35.0)
[2022-07-31 16:37] VITALS: BP 157/91; PULSE 74; RESP 20; O2SAT 99
[2022-07-31 16:40] VITALS: BP 139/78; BP 155/74; PULSE 69; PULSE 72
[2022-07-31 16:42] VITALS: BP 132/87; PULSE 74
[2022-07-31 16:45] VITALS: PULSE 65
--- NOTE | 2022-07-31 16:47 | PC.NURSE ---
pt is alert and oriented, skin appropriate for ethnicity, respirations even unlabored. pt is coming in to the ED do to the last three years of left sided chest pain that radiates to the shoulder/ feels like its burning, dizziness on and off, feels like he is spining in circles, with intermittent blurry vision that also has been going on for about three years, also reports a headache. all nuro intact, no visual facial drift, hand grasp strong and equal. vs stable, and ns on the monitor.
[2022-07-31 17:07] LABS: TSH reflex Free T4 1.08 uIU/mL (0.32-4.0)
== END 2022-07-31 18:23 | disposition home or self-care (01) ==
PROVIDERS: Nurse Practitioner Family; Physician Assistant; Emergency Provider Emergency Medicine Emergency Medical Services
DX: R07.89 Other chest pain (principal); R00.2 Palpitations; R42 Dizziness and giddiness; H53.8 Other visual disturbances; Z20.822 Contact with and (suspected) exposure to COVID-19; Z20.828 Contact with and (suspected) exposure to other viral communicable diseases; Z79.899 Other long term (current) drug therapy
CPT/HCPCS: 70450; 71046; 80048; 80076; 83735; 84443; 84484; 85025; 87635; 93005; 99284; 99285

== ENCOUNTER 2022-08-06 15:08 | Emergency (ER) | payer MEDICAID, OTHER, SELFPAY ==
--- NOTE | ~2022-08-06 | CT_ITS ---
EXAMINATION: CT ABDOMEN AND PELVIS WITH CONTRAST CLINICAL INFORMATION: Abdominal pain COMPARISON: None TECHNIQUE: Multidetector volumetric images were obtained from the superior aspect of the liver through the pubic symphysis following administration 85 mL of Omnipaque 350 intravenous contrast. Sagittal and coronal reformatted images were obtained on the technologist's workstation. Oral contrast: No This CT examination was performed using dose optimization techniques as appropriate, variously including the following: *Automated exposure control *Adjustment of mA and/or kV according to patient size (this includes techniques or standardized protocols for targeted exams where dose is matched to indication/reason for exam; i.e. extremities or head) *Use of iterative reconstruction technique DLP: 697 mGy-cm FINDINGS: Motion limits this study LUNG BASES: Grossly clear LIVER, GALLBLADDER, AND BILIARY TREE: Grossly within normal limits gallbladder unable to fully characterize due to motion PANCREAS: Grossly intact. SPLEEN: Grossly intact ADRENAL GLANDS: Unremarkable. KIDNEYS AND URETERS: Grossly within normal limits. BLADDER: Unremarkable. GASTROINTESTINAL TRACT: The bowel pattern is felt to be nonobstructing. Again limited evaluation from motion. The appendix is felt to be within normal limits. ABDOMINAL WALL: Grossly unremarkable. Again motion limits evaluation. LYMPH NODES: No bulky adenopathy. VASCULAR: Unremarkable. PELVIC VISCERA: Unremarkable. OSSEOUS STRUCTURES: Unremarkable. CT/CT abdomen pelvis w IV con IMPRESSION: This exam is limited from motion artifact as described. No gross abnormality is seen here. Correlation needs to be made clinically. Consider repeat scanning if clinically indicated Fleischner guidelines were followed.
--- NOTE | ~2022-08-06 | XR_ITS ---
EXAMINATION: XR CHEST CLINICAL INFORMATION: Shortness of breath COMPARISON: Chest xray 07/24/22 TECHNIQUE: Frontal view of the chest was obtained. FINDINGS: No significant abnormality is noted involving the heart, lungs, mediastinum, bony thorax or soft tissues. XR/XR chest 1V IMPRESSION: Unremarkable examination.
--- NOTE | 2022-08-06 15:22 | ED.ABDPAIN ---
HPI - Abdominal Pain General Chief Complaint: Abdominal Pain <NEREIDA Valladares - Last Filed: 08/06/22 15:27> Stated Complaint: abd pain/ vomiting <NEREIDA Valladares Last Filed: 08/06/22 15:27> Time Seen by Provider: 08/06/22 16:35 <NEREIDA Valladares Last Filed: 08/06/22 15:27> Source: patient <NEREIDA Ridley Last Filed: 08/06/22 17:55> Mode of arrival: ambulatory <NEREIDA Ridley Last Filed: 08/06/22 17:55> Limitations: language barrier (maltese speaking ) <NEREIDA Ridley Last Filed: 08/06/22 17:55> History of Present Illness HPI narrative: 31yo M with PMHx HTN who is German-speaking who is presenting to the ER with multiple complaints which include c/o nausea/vomiting, diffuse chest pain, diffuse abdominal pain, feeling short of breath and like his heart is racing and a knot in his throat and general weakness for the past 3 weeks. Reports associated vomiting up some blood and having some episodes of epistaxis 3 weeks ago. Reports that he is dizzy all the time. He reports his dizziness has general weakness. He reports he is taking his blood pressure medication as prescribed and to get prior to arrival. Patient reports he has not seen his primary care in over year. Patient moved from [facility] approximately 1 year ago. He denies any fevers, chills, neck pain/stiffness, trouble swallowing, dyspnea on exertion, orthopnea, back pain, flank pain, dysuria, hematuria, abnormal penile discharge, black or bloody stools, diarrhea constipation, lower extremity edema or calf tenderness, recent travel or sick contacts, rashes, recent falls or trauma or any other symptoms complaints or concerns at this time. <NEREIDA Ridley Last Filed: 08/06/22 17:55> MD elicited complaint: abdominal pain <NEREIDA Ridley Last Filed: 08/06/22 17:55> Onset (ago): week(s) (3) <NEREIDA Ridley Last Filed: 08/06/22 17:55> Pain Consistency: constant <NEREIDA Ridley Last Filed: 08/06/22 17:55> Location: diffuse <NEREIDA Ridley - Last Filed: 08/06/22 17:55> Severity: mild <NEREIDA Ridley - Last Filed: 08/06/22 17:55> Quality: cramping <NEREIDA Ridley - Last Filed: 08/06/22 17:55> Radiation: none <NEREIDA Ridley - Last Filed: 08/06/22 17:55> Migration to: no migration <NEREIDA Ridley Last Filed: 08/06/22 17:55> Exacerbating factors: nothing <NEREIDA Ridley - Last Filed: 08/06/22 17:55> Relieving factors: nothing <NEREIDA Ridley - Last Filed: 08/06/22 17:55> Associated symptoms: nausea, vomiting and other (CP/SOB) <NEREIDA Ridley Last Filed: 08/06/22 17:55> Related Data Home Medications: Previous Rx's Medication Instructions Recorded hydrochlorothiazide 25 mg tablet 25 mg PO DAILY #30 tabs 07/24/22 <NEREIDA Valladares Last Filed: 08/06/22 15:27> Allergies/Adverse Reactions: Allergies Allergy/AdvReac Type Severity Reaction Status Date / Time No Known Allergies Allergy Verified 08/06/22 15:22 <NEREIDA Valladares Last Filed: 08/06/22 15:27> Review of Systems Review of Systems Constitutional : No Weight loss, No Fever, No Chills, No Night Sweats, No Fatigue, No Malaise ENT/Mouth : No Hearing loss, No Ear Pain, No Nasal Congestion, No Sinus Pain, No Hoarseness, No sore throat, No Rhinorrhea, No Swallowing Difficulty Eyes: No Eye Pain, No Swelling, No Redness, No Foreign Body, No Discharge, No Vision Changes Cardiovascular : + Chest Pain, + SOB, No Dyspnea on Exertion, No Orthopnea, No Edema, + Palpitations Respiratory : No Cough, No Sputum, No Wheezing, No Smoke Exposure, + Dyspnea Gastrointestinal : + Nausea, + Vomiting, No Diarrhea, No Constipation, + abdominal Pain, No Hematochezia, No Melena Genitourinary : no irregular bleeding, No Dysuria, No Urinary Frequency, No Hematuria, No Urinary Incontinence, No Urgency, No Flank Pain, No Urinary Flow Changes, No Hesitancy Musculoskeletal : No joint pain, No Myalgias, No Joint Swelling Skin : No Skin Lesions, No rash Neuro : + general Weakness, + Dizziness, No Focal weakness, No Numbness, No Paresthesias, No Loss of Consciousness, No Headache Psych : + Anxiety/Panic, No Depression, No SI/HI/AH/VH, No Social Issues, Heme/Lymph: No Bruising, No Bleeding,No Lymphadenopathy Endocrine : No Polyuria, No Polydipsia, No Temperature Intolerance <NEREIDA Ridley - Last Filed: 08/06/22 17:55> Yes all other systems are reviewed and are negative <NEREIDA Ridley - Last Filed: 08/06/22 17:55> [facility] Past Medical History Attestation statement: The following information was validated with the patient. <NEREIDA Ridley - Last Filed: 08/06/22 17:55> Source: old records reviewed and nursing notes reviewed <NEREIDA Ridley - Last Filed: 08/06/22 17:55> Medical History: Medical History Hypertension <NEREIDA Valladares - Last Filed: 08/06/22 15:27> Social History Social History: Social History Alcohol intake: current Alcohol intake frequency: holidays/special occasions only Advance Directives: No Advance Directives Information Provided: No <NEREIDA Valladares Last Filed: 08/06/22 15:27> Physical Exam ED Vital Signs: Vital Signs - 24 hr 08/06/22 15:24 08/06/22 17:34 Temperature 98.5 F 98 F Pulse Rate 93 90 Respiratory Rate 16 19 Blood Pressure 171/90 H 149/93 H Pulse Oximetry 99 98 Oxygen Delivery Method Nasal Cannula BMI result Body Mass Index 31.6 <NEREIDA Valladares Last Filed: 08/06/22 15:27> Vital Signs - 24 hr 08/06/22 15:24 08/06/22 17:34 Temperature 98.5 F 98 F Pulse Rate 93 90 Respiratory Rate 16 19 Blood Pressure 171/90 H 149/93 H Pulse Oximetry 99 98 Oxygen Delivery Method Nasal Cannula BMI result Body Mass Index 31.6 vital signs have been reviewed as normal and appeared to be correct. Blood pressure 171/90. Heart rate normal. Respiration rate normal. Temperature normal. Oxygen saturation normal. <NEREIDA Ridley - Last Filed: 08/06/22 17:55> Vital Signs - 24 hr 08/06/22 15:24 08/06/22 17:34 Temperature 98.5 F 98 F Pulse Rate 93 90 Respiratory Rate 16 19 Blood Pressure 171/90 H 149/93 H Pulse Oximetry 99 98 Oxygen Delivery Method Nasal Cannula BMI result Body Mass Index 31.6 <Leda Whalen NP - Last Filed: 08/06/22 19:39> Appearance: Alert although very anxious. Oriented X3. No acute distress. Head: Normal external exam. Normocephalic. Atraumatic. Eyes: PERRLA. EOMI. Conjunctiva and sclera normal. Eyelids normal. ENT: EAC normal. TM's Normal. Pharynx normal. Uvula midline. Moist mucous membranes. No lesions/ulcerations or masses noted on the tongue. Normal voice. No trismus noted. No drooling noted. No muffled voice noted. Neck: Normal inspection. Neck supple. FROM. No adenopathy. Thyroid Normal. No tracheal deviation noted. No crepitus is noted. No meningeal signs. No neck mass noted. No signs of trauma noted. CVS: Normal heart rate and rhythm. Heart sound normal. Pulses normal throughout. No murmurs/rales/gallops. Respiratory: No respiratory distress. Painless inspiration. Breath sounds normal. No wheezes/rales/rhonchi noted. Chest nontender. No crepitus is noted. No signs of trauma noted. No accessory muscle usage noted or decreased air movement noted. No signs of trauma. Abdomen: Soft and nontender. Bowel sounds normal in all 4 quadrants. No distention noted. No organomegaly noted. No visible injury noted. Back: No CVA tenderness. Full range of motion noted. Nontender. No signs of trauma. Patient neuro intact bilaterally and distally on all 4 extremities. Patient's reflexes intact bilaterally and distally on all 4 extremities. No rashes/lesion/induration/fluctuance or signs of infection noted. Skin: Skin warm and dry. Normal skin color. Normal skin turgor. No rashes/lesions/lacerations noted. Extremities: No lower extremity edema. No calf tenderness is noted. Extremities exhibit normal range of motion and nontender. Neuro: Oriented X 3. No motor deficit. No sensory deficit. Reflexes normal. Normal steady gait. No focal neuro deficits noted. CN's II-XII intact bilaterally? Vascular: + radial pulses/+ 2 distal pedal pulses/+2 dorsalis pedis b/l. Normal cap refill. No cyanosis noted to upper extremity nails and lower extremity toes nails. <NEREIDA Ridley - Last Filed: 08/06/22 17:55> Course Course Course Narrative: RME-- 31yo M with PMHx HTN c/o abdominal pain, nausea, vomiting, CP, SOB, cough, chills x today. Describes CP as burning. Denies fever, bad food exposure Patient nauseous in traige with emesis bag EKG, labs, UA, COVID/FLU, CXR, IVF, GI cocktail ordered <NEREIDA Valladares - Last Filed: 08/06/22 15:27> Reevaluation(s) Reevaluation #1: 31yo M with PMHx HTN who is German-speaking who is presenting to the ER with multiple complaints which include c/o nausea/vomiting, diffuse chest pain, diffuse abdominal pain, feeling short of breath and like his heart is racing and a knot in his throat and general weakness for the past 3 weeks. Reports associated vomiting up some blood and having some episodes of epistaxis 3 weeks ago. Reports that he is dizzy all the time. He reports his dizziness has general weakness. He reports he is taking his blood pressure medication as prescribed and to get prior to arrival. Patient was seen here on 07/24/2022 and 07/31/2022 for similar complaints was discharged with follow-up with a primary care provider. Reports he has not been able to follow-up. Labs reviewed due to they were obtained in the waiting room/triage - leukocytosis of 12,000. - platelet count 565 - BUN 6 - random glucose 146 - calcium 10.5 - ALT 49 - alkaline phosphate 143 - total protein 8.4 - albumin 5.3 - UA revealed 30+ protein otherwise no evidence of UTI. - patient negative for COVID/RSV/flu Otherwise all other labs are within normal limits Imaging CXR WNL no acute processes noted Plan: Patient was given IV Ativan. Reports he feels much better. Seems less anxious at this time. Therefore at this time will obtain a CT scan abdomen pelvis with IV contrast and re-evaluate. Sign out to ERIKA Tompkins pending CT scan. <NEREIDA Ridley - Last Filed: 08/06/22 17:55> 31yo M with PMHx HTN who is German-speaking who is presenting to the ER with multiple complaints which include c/o nausea/vomiting, diffuse chest pain, diffuse abdominal pain, feeling short of breath and like his heart is racing and a knot in his throat and general weakness for the past 3 weeks. Reports associated vomiting up some blood and having some episodes of epistaxis 3 weeks ago. Reports that he is dizzy all the time. He reports his dizziness has general weakness. He reports he is taking his blood pressure medication as prescribed and to get prior to arrival. Patient was seen here on 07/24/2022 and 07/31/2022 for similar complaints was discharged with follow-up with a primary care provider. Reports he has not been able to follow-up. Labs reviewed due to they were obtained in the waiting room/triage - leukocytosis of 12,000. - platelet count 565 - BUN 6 - random glucose 146 - calcium 10.5 - ALT 49 - alkaline phosphate 143 - total protein 8.4 - albumin 5.3 - UA revealed 30+ protein otherwise no evidence of UTI. - patient negative for COVID/RSV/flu Otherwise all other labs are within normal limits Imaging CXR WNL no acute processes noted Plan: Patient was given IV Ativan. Reports he feels much better. Seems less anxious at this time. Therefore at this time will obtain a CT scan abdomen pelvis with IV contrast and re-evaluate. Sign out to ERIKA Tompkins pending CT scan. 19:37 CT scan negative for acute findings. Plan of care discharge home. <Leda Whalen NP - Last Filed: 08/06/22 19:39> Medical Decision Making Lab Data MDM Lab Attestation statement: I reviewed the patient's lab results. <NEREIDA Ridley - Last Filed: 08/06/22 17:55> Result Diagrams: 08/06/22 15:46 08/06/22 15:46 <NEREIDA Valladares - Last Filed: 08/06/22 15:27> Labs: Lab Results 08/06/22 08/06/22 08/06/22 Range/Units 15:46 15:46 15:46 WBC 12.2 H (4.8-10.8) X10*3/uL RBC 5.83 H (4.60-5.80) X10*6/uL Hgb 16.3 (14.0-18.0) g/dl Hct 47.4 (42.0-52.0) % MCV 81.3 (80.0-98.0) fL MCH 28.0 (27.0-33.0) pg MCHC 34.4 (31.0-36.0) g/dl RDW 13.2 (11.0-16.0) % Plt Count 565 H (160-400) X10*3/uL MPV 9.0 L (9.4-12.4) fL Immature Gran % (Auto) 0.5 H (0.0-0.4) % Neut % (Auto) 67.4 (45-73) % Lymph % (Auto) 23.9 (20-40) % [place] % (Auto) 5.5 (2-11) % Eos % (Auto) 1.8 (0-4) % Baso % (Auto) 0.9 (0-2) % Lymph # (Auto) 2.9 (1.2-4.9) X10*3/uL [place] # (Auto) 0.7 (0.1-1.2) X10*3/uL Eos # (Auto) 0.2 (0.0-0.4) X10*3/uL Baso # (Auto) 0.1 (0.0-0.2) X10*3/uL Abs Immat Gran (auto) 0.06 H (0.00-0.03) X10*3/uL Absolute Neuts (auto) 8.2 (2.0-8.3) x10*3/uL Absolute Nucleated RBC 0.000 (0.0-0.012) X10*3/uL Nucleated RBC % (auto) 0.0 (0.0-0.2) /100WBC Sodium 139 (135-145) mmol/L Potassium 3.4 (3.3-5.1) mmol/L Chloride 99 (96-108) mmol/L Carbon Dioxide 25 (22-29) mmol/L Anion Gap 18 (12-20) BUN 6 L (9-16) mg/dL Creatinine 0.78 (0.5-1.4) mg/dL Estim Creat Clear Calc 134.6 Estimated GFR > 60 Random Glucose 146 H (60-115) mg/dL Estimat Average Glucose mg/dL Hemoglobin A1c % % Calcium 10.5 H D (8.4-10.2) mg/dL Magnesium 2.0 (1.6-2.6) mg/dL Total Bilirubin 0.7 (0.0-1.0) mg/dL Direct Bilirubin 0.2 (0.0-0.5) mg/dL AST 26 (5-37) U/L ALT 49 H (0-40) U/L Alkaline Phosphatase 143 H (39-117) U/L Troponin I High Sens < 3.5 (<3.5-35.0) ng/L Total Protein 8.4 H (6.5-8.0) g/dL Albumin 5.3 H (3.5-5.0) g/dL Lipase 16 (8-78) U/L Vitamin B12 389 (200-900) pg/mL 25-OH Vitamin D Total 15.9 (>30) ng/mL Urine Color Urine Appearance Urine pH (5.0-9.0) Ur Specific [place] (1.005-1.025) Urine Protein (Neg-Trace) mg/dL Urine Glucose (UA) (Negative) mg/dL Urine Ketones (Negative) mg/dL Urine Blood (Negative) Urine Nitrite (Negative) Ur Leukocyte Esterase (Negative) Urine RBC (0-2) /HPF Urine WBC (0-5) /HPF Ur Squamous Epith Cells (0-2) /HPF Urine Bacteria (None Seen) Hyaline Casts (0-2) /LPF Urine Opiates Screen (Not Detect) Urine Fentanyl Screen (Not Detect) Ur Barbiturates Screen (Not Detect) Ur Phencyclidine Scrn (Not Detect) Ur Amphetamines Screen (Not Detect) U Benzodiazepines Scrn (Not Detect) Urine Cocaine Screen (Not Detect) U Marijuana (THC) Screen (Not Detect) Influenza Type A (PCR) (Negative) Influenza Type B (PCR) (Negative) RSV RNA Qual (PCR) (Negative) SARS-CoV-2 RNA (RT-PCR) (Negative) 08/06/22 08/06/22 08/06/22 Range/Units 15:46 15:46 15:52 WBC (4.8-10.8) X10*3/uL RBC (4.60-5.80) X10*6/uL Hgb (14.0-18.0) g/dl Hct (42.0-52.0) % MCV (80.0-98.0) fL MCH (27.0-33.0) pg MCHC (31.0-36.0) g/dl RDW (11.0-16.0) % Plt Count (160-400) X10*3/uL MPV (9.4-12.4) fL Immature Gran % (Auto) (0.0-0.4) % Neut % (Auto) (45-73) % Lymph % (Auto) (20-40) % [place] % (Auto) (2-11) % Eos % (Auto) (0-4) % Baso % (Auto) (0-2) % Lymph # (Auto) (1.2-4.9) X10*3/uL [place] # (Auto) (0.1-1.2) X10*3/uL Eos # (Auto) (0.0-0.4) X10*3/uL Baso # (Auto) (0.0-0.2) X10*3/uL Abs Immat Gran (auto) (0.00-0.03) X10*3/uL Absolute Neuts (auto) (2.0-8.3) x10*3/uL Absolute Nucleated RBC (0.0-0.012) X10*3/uL Nucleated RBC % (auto) (0.0-0.2) /100WBC Sodium (135-145) mmol/L Potassium (3.3-5.1) mmol/L Chloride (96-108) mmol/L Carbon Dioxide (22-29) mmol/L Anion Gap (12-20) BUN (9-16) mg/dL Creatinine (0.5-1.4) mg/dL Estim Creat Clear Calc Estimated GFR Random Glucose (60-115) mg/dL Estimat Average Glucose 117 mg/dL Hemoglobin A1c % 5.7 % Calcium (8.4-10.2) mg/dL Magnesium (1.6-2.6) mg/dL Total Bilirubin (0.0-1.0) mg/dL Direct Bilirubin (0.0-0.5) mg/dL AST (5-37) U/L ALT (0-40) U/L Alkaline Phosphatase (39-117) U/L Troponin I High Sens (<3.5-35.0) ng/L Total Protein (6.5-8.0) g/dL Albumin (3.5-5.0) g/dL Lipase (8-78) U/L Vitamin B12 (200-900) pg/mL 25-OH Vitamin D Total (>30) ng/mL Urine Color Yellow Urine Appearance Clear Urine pH 7.5 (5.0-9.0) Ur Specific [place] 1.010 (1.005-1.025) Urine Protein 30 (1+) H (Neg-Trace) mg/dL Urine Glucose (UA) Negative (Negative) mg/dL Urine Ketones Negative (Negative) mg/dL Urine Blood Negative (Negative) Urine Nitrite Negative (Negative) Ur Leukocyte Esterase Negative (Negative) Urine RBC 0-2 (0-2) /HPF Urine WBC 0-5 (0-5) /HPF Ur Squamous Epith Cells 0-2 (0-2) /HPF Urine Bacteria None Seen (None Seen) Hyaline Casts 0-2 (0-2) /LPF Urine Opiates Screen (Not Detect) Urine Fentanyl Screen (Not Detect) Ur Barbiturates Screen (Not Detect) Ur Phencyclidine Scrn (Not Detect) Ur Amphetamines Screen (Not Detect) U Benzodiazepines Scrn (Not Detect) Urine Cocaine Screen (Not Detect) U Marijuana (THC) Screen (Not Detect) Influenza Type A (PCR) NEGATIVE (Negative) Influenza Type B (PCR) NEGATIVE (Negative) RSV RNA Qual (PCR) NEGATIVE (Negative) SARS-CoV-2 RNA (RT-PCR) NEGATIVE (Negative) 08/06/22 Range/Units 17:32 WBC (4.8-10.8) X10*3/uL RBC (4.60-5.80) X10*6/uL Hgb (14.0-18.0) g/dl Hct (42.0-52.0) % MCV (80.0-98.0) fL MCH (27.0-33.0) pg MCHC (31.0-36.0) g/dl RDW (11.0-16.0) % Plt Count (160-400) X10*3/uL MPV (9.4-12.4) fL Immature Gran % (Auto) (0.0-0.4) % Neut % (Auto) (45-73) % Lymph % (Auto) (20-40) % [place] % (Auto) (2-11) % Eos % (Auto) (0-4) % Baso % (Auto) (0-2) % Lymph # (Auto) (1.2-4.9) X10*3/uL [place] # (Auto) (0.1-1.2) X10*3/uL Eos # (Auto) (0.0-0.4) X10*3/uL Baso # (Auto) (0.0-0.2) X10*3/uL Abs Immat Gran (auto) (0.00-0.03) X10*3/uL Absolute Neuts (auto) (2.0-8.3) x10*3/uL Absolute Nucleated RBC (0.0-0.012) X10*3/uL Nucleated RBC % (auto) (0.0-0.2) /100WBC Sodium (135-145) mmol/L Potassium (3.3-5.1) mmol/L Chloride (96-108) mmol/L Carbon Dioxide (22-29) mmol/L Anion Gap (12-20) BUN (9-16) mg/dL Creatinine (0.5-1.4) mg/dL Estim Creat Clear Calc Estimated GFR Random Glucose (60-115) mg/dL Estimat Average Glucose mg/dL Hemoglobin A1c % % Calcium (8.4-10.2) mg/dL Magnesium (1.6-2.6) mg/dL Total Bilirubin (0.0-1.0) mg/dL Direct Bilirubin (0.0-0.5) mg/dL AST (5-37) U/L ALT (0-40) U/L Alkaline Phosphatase (39-117) U/L Troponin I High Sens (<3.5-35.0) ng/L Total Protein (6.5-8.0) g/dL Albumin (3.5-5.0) g/dL Lipase (8-78) U/L Vitamin B12 (200-900) pg/mL 25-OH Vitamin D Total (>30) ng/mL Urine Color Urine Appearance Urine pH (5.0-9.0) Ur Specific [place] (1.005-1.025) Urine Protein (Neg-Trace) mg/dL Urine Glucose (UA) (Negative) mg/dL Urine Ketones (Negative) mg/dL Urine Blood (Negative) Urine Nitrite (Negative) Ur Leukocyte Esterase (Negative) Urine RBC (0-2) /HPF Urine WBC (0-5) /HPF Ur Squamous Epith Cells (0-2) /HPF Urine Bacteria (None Seen) Hyaline Casts (0-2) /LPF Urine Opiates Screen Not Detected (Not Detect) Urine Fentanyl Screen Not Detected (Not Detect) Ur Barbiturates Screen Not Detected (Not Detect) Ur Phencyclidine Scrn Not Detected (Not Detect) Ur Amphetamines Screen Not Detected (Not Detect) U Benzodiazepines Scrn Not Detected (Not Detect) Urine Cocaine Screen Not Detected (Not Detect) U Marijuana (THC) Screen Not Detected (Not Detect) Influenza Type A (PCR) (Negative) Influenza Type B (PCR) (Negative) RSV RNA Qual (PCR) (Negative) SARS-CoV-2 RNA (RT-PCR) (Negative) <NEREIDA Valladares - Last Filed: 08/06/22 15:27> Lab Results 08/06/22 08/06/22 08/06/22 Range/Units 15:46 15:46 15:46 WBC 12.2 H (4.8-10.8) X10*3/uL RBC 5.83 H (4.60-5.80) X10*6/uL Hgb 16.3 (14.0-18.0) g/dl Hct 47.4 (42.0-52.0) % MCV 81.3 (80.0-98.0) fL MCH 28.0 (27.0-33.0) pg MCHC 34.4 (31.0-36.0) g/dl RDW 13.2 (11.0-16.0) % Plt Count 565 H (160-400) X10*3/uL MPV 9.0 L (9.4-12.4) fL Immature Gran % (Auto) 0.5 H (0.0-0.4) % Neut % (Auto) 67.4 (45-73) % Lymph % (Auto) 23.9 (20-40) % [place] % (Auto) 5.5 (2-11) % Eos % (Auto) 1.8 (0-4) % Baso % (Auto) 0.9 (0-2) % Lymph # (Auto) 2.9 (1.2-4.9) X10*3/uL [place] # (Auto) 0.7 (0.1-1.2) X10*3/uL Eos # (Auto) 0.2 (0.0-0.4) X10*3/uL Baso # (Auto) 0.1 (0.0-0.2) X10*3/uL Abs Immat Gran (auto) 0.06 H (0.00-0.03) X10*3/uL Absolute Neuts (auto) 8.2 (2.0-8.3) x10*3/uL Absolute Nucleated RBC 0.000 (0.0-0.012) X10*3/uL Nucleated RBC % (auto) 0.0 (0.0-0.2) /100WBC Sodium 139 (135-145) mmol/L Potassium 3.4 (3.3-5.1) mmol/L Chloride 99 (96-108) mmol/L Carbon Dioxide 25 (22-29) mmol/L Anion Gap 18 (12-20) BUN 6 L (9-16) mg/dL Creatinine 0.78 (0.5-1.4) mg/dL Estim Creat Clear Calc 134.6 Estimated GFR > 60 Random Glucose 146 H (60-115) mg/dL Estimat Average Glucose mg/dL Hemoglobin A1c % % Calcium 10.5 H D (8.4-10.2) mg/dL Magnesium 2.0 (1.6-2.6) mg/dL Total Bilirubin 0.7 (0.0-1.0) mg/dL Direct Bilirubin 0.2 (0.0-0.5) mg/dL AST 26 (5-37) U/L ALT 49 H (0-40) U/L Alkaline Phosphatase 143 H (39-117) U/L Troponin I High Sens < 3.5 (<3.5-35.0) ng/L Total Protein 8.4 H (6.5-8.0) g/dL Albumin 5.3 H (3.5-5.0) g/dL Lipase 16 (8-78) U/L Vitamin B12 389 (200-900) pg/mL 25-OH Vitamin D Total 15.9 (>30) ng/mL Urine Color Urine Appearance Urine pH (5.0-9.0) Ur Specific [place] (1.005-1.025) Urine Protein (Neg-Trace) mg/dL Urine Glucose (UA) (Negative) mg/dL Urine Ketones (Negative) mg/dL Urine Blood (Negative) Urine Nitrite (Negative) Ur Leukocyte Esterase (Negative) Urine RBC (0-2) /HPF Urine WBC (0-5) /HPF Ur Squamous Epith Cells (0-2) /HPF Urine Bacteria (None Seen) Hyaline Casts (0-2) /LPF Urine Opiates Screen (Not Detect) Urine Fentanyl Screen (Not Detect) Ur Barbiturates Screen (Not Detect) Ur Phencyclidine Scrn (Not Detect) Ur Amphetamines Screen (Not Detect) U Benzodiazepines Scrn (Not Detect) Urine Cocaine Screen (Not Detect) U Marijuana (THC) Screen (Not Detect) Influenza Type A (PCR) (Negative) Influenza Type B (PCR) (Negative) RSV RNA Qual (PCR) (Negative) SARS-CoV-2 RNA (RT-PCR) (Negative) 08/06/22 08/06/22 08/06/22 Range/Units 15:46 15:46 15:52 WBC (4.8-10.8) X10*3/uL RBC (4.60-5.80) X10*6/uL Hgb (14.0-18.0) g/dl Hct (42.0-52.0) % MCV (80.0-98.0) fL MCH (27.0-33.0) pg MCHC (31.0-36.0) g/dl RDW (11.0-16.0) % Plt Count (160-400) X10*3/uL MPV (9.4-12.4) fL Immature Gran % (Auto) (0.0-0.4) % Neut % (Auto) (45-73) % Lymph % (Auto) (20-40) % [place] % (Auto) (2-11) % Eos % (Auto) (0-4) % Baso % (Auto) (0-2) % Lymph # (Auto) (1.2-4.9) X10*3/uL [place] # (Auto) (0.1-1.2) X10*3/uL Eos # (Auto) (0.0-0.4) X10*3/uL Baso # (Auto) (0.0-0.2) X10*3/uL Abs Immat Gran (auto) (0.00-0.03) X10*3/uL Absolute Neuts (auto) (2.0-8.3) x10*3/uL Absolute Nucleated RBC (0.0-0.012) X10*3/uL Nucleated RBC % (auto) (0.0-0.2) /100WBC Sodium (135-145) mmol/L Potassium (3.3-5.1) mmol/L Chloride (96-108) mmol/L Carbon Dioxide (22-29) mmol/L Anion Gap (12-20) BUN (9-16) mg/dL Creatinine (0.5-1.4) mg/dL Estim Creat Clear Calc Estimated GFR Random Glucose (60-115) mg/dL Estimat Average Glucose 117 mg/dL Hemoglobin A1c % 5.7 % Calcium (8.4-10.2) mg/dL Magnesium (1.6-2.6) mg/dL Total Bilirubin (0.0-1.0) mg/dL Direct Bilirubin (0.0-0.5) mg/dL AST (5-37) U/L ALT (0-40) U/L Alkaline Phosphatase (39-117) U/L Troponin I High Sens (<3.5-35.0) ng/L Total Protein (6.5-8.0) g/dL Albumin (3.5-5.0) g/dL Lipase (8-78) U/L Vitamin B12 (200-900) pg/mL 25-OH Vitamin D Total (>30) ng/mL Urine Color Yellow Urine Appearance Clear Urine pH 7.5 (5.0-9.0) Ur Specific [place] 1.010 (1.005-1.025) Urine Protein 30 (1+) H (Neg-Trace) mg/dL Urine Glucose (UA) Negative (Negative) mg/dL Urine Ketones Negative (Negative) mg/dL Urine Blood Negative (Negative) Urine Nitrite Negative (Negative) Ur Leukocyte Esterase Negative (Negative) Urine RBC 0-2 (0-2) /HPF Urine WBC 0-5 (0-5) /HPF Ur Squamous Epith Cells 0-2 (0-2) /HPF Urine Bacteria None Seen (None Seen) Hyaline Casts 0-2 (0-2) /LPF Urine Opiates Screen (Not Detect) Urine Fentanyl Screen (Not Detect) Ur Barbiturates Screen (Not Detect) Ur Phencyclidine Scrn (Not Detect) Ur Amphetamines Screen (Not Detect) U Benzodiazepines Scrn (Not Detect) Urine Cocaine Screen (Not Detect) U Marijuana (THC) Screen (Not Detect) Influenza Type A (PCR) NEGATIVE (Negative) Influenza Type B (PCR) NEGATIVE (Negative) RSV RNA Qual (PCR) NEGATIVE (Negative) SARS-CoV-2 RNA (RT-PCR) NEGATIVE (Negative) 08/06/22 Range/Units 17:32 WBC (4.8-10.8) X10*3/uL RBC (4.60-5.80) X10*6/uL Hgb (14.0-18.0) g/dl Hct (42.0-52.0) % MCV (80.0-98.0) fL MCH (27.0-33.0) pg MCHC (31.0-36.0) g/dl RDW (11.0-16.0) % Plt Count (160-400) X10*3/uL MPV (9.4-12.4) fL Immature Gran % (Auto) (0.0-0.4) % Neut % (Auto) (45-73) % Lymph % (Auto) (20-40) % [place] % (Auto) (2-11) % Eos % (Auto) (0-4) % Baso % (Auto) (0-2) % Lymph # (Auto) (1.2-4.9) X10*3/uL [place] # (Auto) (0.1-1.2) X10*3/uL Eos # (Auto) (0.0-0.4) X10*3/uL Baso # (Auto) (0.0-0.2) X10*3/uL Abs Immat Gran (auto) (0.00-0.03) X10*3/uL Absolute Neuts (auto) (2.0-8.3) x10*3/uL Absolute Nucleated RBC (0.0-0.012) X10*3/uL Nucleated RBC % (auto) (0.0-0.2) /100WBC Sodium (135-145) mmol/L Potassium (3.3-5.1) mmol/L Chloride (96-108) mmol/L Carbon Dioxide (22-29) mmol/L Anion Gap (12-20) BUN (9-16) mg/dL Creatinine (0.5-1.4) mg/dL Estim Creat Clear Calc Estimated GFR Random Glucose (60-115) mg/dL Estimat Average Glucose mg/dL Hemoglobin A1c % % Calcium (8.4-10.2) mg/dL Magnesium (1.6-2.6) mg/dL Total Bilirubin (0.0-1.0) mg/dL Direct Bilirubin (0.0-0.5) mg/dL AST (5-37) U/L ALT (0-40) U/L Alkaline Phosphatase (39-117) U/L Troponin I High Sens (<3.5-35.0) ng/L Total Protein (6.5-8.0) g/dL Albumin (3.5-5.0) g/dL Lipase (8-78) U/L Vitamin B12 (200-900) pg/mL 25-OH Vitamin D Total (>30) ng/mL Urine Color Urine Appearance Urine pH (5.0-9.0) Ur Specific [place] (1.005-1.025) Urine Protein (Neg-Trace) mg/dL Urine Glucose (UA) (Negative) mg/dL Urine Ketones (Negative) mg/dL Urine Blood (Negative) Urine Nitrite (Negative) Ur Leukocyte Esterase (Negative) Urine RBC (0-2) /HPF Urine WBC (0-5) /HPF Ur Squamous Epith Cells (0-2) /HPF Urine Bacteria (None Seen) Hyaline Casts (0-2) /LPF Urine Opiates Screen Not Detected (Not Detect) Urine Fentanyl Screen Not Detected (Not Detect) Ur Barbiturates Screen Not Detected (Not Detect) Ur Phencyclidine Scrn Not Detected (Not Detect) Ur Amphetamines Screen Not Detected (Not Detect) U Benzodiazepines Scrn Not Detected (Not Detect) Urine Cocaine Screen Not Detected (Not Detect) U Marijuana (THC) Screen Not Detected (Not Detect) Influenza Type A (PCR) (Negative) Influenza Type B (PCR) (Negative) RSV RNA Qual (PCR) (Negative) SARS-CoV-2 RNA (RT-PCR) (Negative) <NEREIDA Ridley - Last Filed: 08/06/22 17:55> Lab Results 08/06/22 08/06/22 08/06/22 Range/Units 15:46 15:46 15:46 WBC 12.2 H (4.8-10.8) X10*3/uL RBC 5.83 H (4.60-5.80) X10*6/uL Hgb 16.3 (14.0-18.0) g/dl Hct 47.4 (42.0-52.0) % MCV 81.3 (80.0-98.0) fL MCH 28.0 (27.0-33.0) pg MCHC 34.4 (31.0-36.0) g/dl RDW 13.2 (11.0-16.0) % Plt Count 565 H (160-400) X10*3/uL MPV 9.0 L (9.4-12.4) fL Immature Gran % (Auto) 0.5 H (0.0-0.4) % Neut % (Auto) 67.4 (45-73) % Lymph % (Auto) 23.9 (20-40) % [place] % (Auto) 5.5 (2-11) % Eos % (Auto) 1.8 (0-4) % Baso % (Auto) 0.9 (0-2) % Lymph # (Auto) 2.9 (1.2-4.9) X10*3/uL [place] # (Auto) 0.7 (0.1-1.2) X10*3/uL Eos # (Auto) 0.2 (0.0-0.4) X10*3/uL Baso # (Auto) 0.1 (0.0-0.2) X10*3/uL Abs Immat Gran (auto) 0.06 H (0.00-0.03) X10*3/uL Absolute Neuts (auto) 8.2 (2.0-8.3) x10*3/uL Absolute Nucleated RBC 0.000 (0.0-0.012) X10*3/uL Nucleated RBC % (auto) 0.0 (0.0-0.2) /100WBC Sodium 139 (135-145) mmol/L Potassium 3.4 (3.3-5.1) mmol/L Chloride 99 (96-108) mmol/L Carbon Dioxide 25 (22-29) mmol/L Anion Gap 18 (12-20) BUN 6 L (9-16) mg/dL Creatinine 0.78 (0.5-1.4) mg/dL Estim Creat Clear Calc 134.6 Estimated GFR > 60 Random Glucose 146 H (60-115) mg/dL Estimat Average Glucose mg/dL Hemoglobin A1c % % Calcium 10.5 H D (8.4-10.2) mg/dL Magnesium 2.0 (1.6-2.6) mg/dL Total Bilirubin 0.7 (0.0-1.0) mg/dL Direct Bilirubin 0.2 (0.0-0.5) mg/dL AST 26 (5-37) U/L ALT 49 H (0-40) U/L Alkaline Phosphatase 143 H (39-117) U/L Troponin I High Sens < 3.5 (<3.5-35.0) ng/L Total Protein 8.4 H (6.5-8.0) g/dL Albumin 5.3 H (3.5-5.0) g/dL Lipase 16 (8-78) U/L Vitamin B12 389 (200-900) pg/mL 25-OH Vitamin D Total 15.9 (>30) ng/mL Urine Color Urine Appearance Urine pH (5.0-9.0) Ur Specific [place] (1.005-1.025) Urine Protein (Neg-Trace) mg/dL Urine Glucose (UA) (Negative) mg/dL Urine Ketones (Negative) mg/dL Urine Blood (Negative) Urine Nitrite (Negative) Ur Leukocyte Esterase (Negative) Urine RBC (0-2) /HPF Urine WBC (0-5) /HPF Ur Squamous Epith Cells (0-2) /HPF Urine Bacteria (None Seen) Hyaline Casts (0-2) /LPF Urine Opiates Screen (Not Detect) Urine Fentanyl Screen (Not Detect) Ur Barbiturates Screen (Not Detect) Ur Phencyclidine Scrn (Not Detect) Ur Amphetamines Screen (Not Detect) U Benzodiazepines Scrn (Not Detect) Urine Cocaine Screen (Not Detect) U Marijuana (THC) Screen (Not Detect) Influenza Type A (PCR) (Negative) Influenza Type B (PCR) (Negative) RSV RNA Qual (PCR) (Negative) SARS-CoV-2 RNA (RT-PCR) (Negative) 08/06/22 08/06/22 08/06/22 Range/Units 15:46 15:46 15:52 WBC (4.8-10.8) X10*3/uL RBC (4.60-5.80) X10*6/uL Hgb (14.0-18.0) g/dl Hct (42.0-52.0) % MCV (80.0-98.0) fL MCH (27.0-33.0) pg MCHC (31.0-36.0) g/dl RDW (11.0-16.0) % Plt Count (160-400) X10*3/uL MPV (9.4-12.4) fL Immature Gran % (Auto) (0.0-0.4) % Neut % (Auto) (45-73) % Lymph % (Auto) (20-40) % [place] % (Auto) (2-11) % Eos % (Auto) (0-4) % Baso % (Auto) (0-2) % Lymph # (Auto) (1.2-4.9) X10*3/uL [place] # (Auto) (0.1-1.2) X10*3/uL Eos # (Auto) (0.0-0.4) X10*3/uL Baso # (Auto) (0.0-0.2) X10*3/uL Abs Immat Gran (auto) (0.00-0.03) X10*3/uL Absolute Neuts (auto) (2.0-8.3) x10*3/uL Absolute Nucleated RBC (0.0-0.012) X10*3/uL Nucleated RBC % (auto) (0.0-0.2) /100WBC Sodium (135-145) mmol/L Potassium (3.3-5.1) mmol/L Chloride (96-108) mmol/L Carbon Dioxide (22-29) mmol/L Anion Gap (12-20) BUN (9-16) mg/dL Creatinine (0.5-1.4) mg/dL Estim Creat Clear Calc Estimated GFR Random Glucose (60-115) mg/dL Estimat Average Glucose 117 mg/dL Hemoglobin A1c % 5.7 % Calcium (8.4-10.2) mg/dL Magnesium (1.6-2.6) mg/dL Total Bilirubin (0.0-1.0) mg/dL Direct Bilirubin (0.0-0.5) mg/dL AST (5-37) U/L ALT (0-40) U/L Alkaline Phosphatase (39-117) U/L Troponin I High Sens (<3.5-35.0) ng/L Total Protein (6.5-8.0) g/dL Albumin (3.5-5.0) g/dL Lipase (8-78) U/L Vitamin B12 (200-900) pg/mL 25-OH Vitamin D Total (>30) ng/mL Urine Color Yellow Urine Appearance Clear Urine pH 7.5 (5.0-9.0) Ur Specific [place] 1.010 (1.005-1.025) Urine Protein 30 (1+) H (Neg-Trace) mg/dL Urine Glucose (UA) Negative (Negative) mg/dL Urine Ketones Negative (Negative) mg/dL Urine Blood Negative (Negative) Urine Nitrite Negative (Negative) Ur Leukocyte Esterase Negative (Negative) Urine RBC 0-2 (0-2) /HPF Urine WBC 0-5 (0-5) /HPF Ur Squamous Epith Cells 0-2 (0-2) /HPF Urine Bacteria None Seen (None Seen) Hyaline Casts 0-2 (0-2) /LPF Urine Opiates Screen (Not Detect) Urine Fentanyl Screen (Not Detect) Ur Barbiturates Screen (Not Detect) Ur Phencyclidine Scrn (Not Detect) Ur Amphetamines Screen (Not Detect) U Benzodiazepines Scrn (Not Detect) Urine Cocaine Screen (Not Detect) U Marijuana (THC) Screen (Not Detect) Influenza Type A (PCR) NEGATIVE (Negative) Influenza Type B (PCR) NEGATIVE (Negative) RSV RNA Qual (PCR) NEGATIVE (Negative) SARS-CoV-2 RNA (RT-PCR) NEGATIVE (Negative) 08/06/22 Range/Units 17:32 WBC (4.8-10.8) X10*3/uL RBC (4.60-5.80) X10*6/uL Hgb (14.0-18.0) g/dl Hct (42.0-52.0) % MCV (80.0-98.0) fL MCH (27.0-33.0) pg MCHC (31.0-36.0) g/dl RDW (11.0-16.0) % Plt Count (160-400) X10*3/uL MPV (9.4-12.4) fL Immature Gran % (Auto) (0.0-0.4) % Neut % (Auto) (45-73) % Lymph % (Auto) (20-40) % [place] % (Auto) (2-11) % Eos % (Auto) (0-4) % Baso % (Auto) (0-2) % Lymph # (Auto) (1.2-4.9) X10*3/uL [place] # (Auto) (0.1-1.2) X10*3/uL Eos # (Auto) (0.0-0.4) X10*3/uL Baso # (Auto) (0.0-0.2) X10*3/uL Abs Immat Gran (auto) (0.00-0.03) X10*3/uL Absolute Neuts (auto) (2.0-8.3) x10*3/uL Absolute Nucleated RBC (0.0-0.012) X10*3/uL Nucleated RBC % (auto) (0.0-0.2) /100WBC Sodium (135-145) mmol/L Potassium (3.3-5.1) mmol/L Chloride (96-108) mmol/L Carbon Dioxide (22-29) mmol/L Anion Gap (12-20) BUN (9-16) mg/dL Creatinine (0.5-1.4) mg/dL Estim Creat Clear Calc Estimated GFR Random Glucose (60-115) mg/dL Estimat Average Glucose mg/dL Hemoglobin A1c % % Calcium (8.4-10.2) mg/dL Magnesium (1.6-2.6) mg/dL Total Bilirubin (0.0-1.0) mg/dL Direct Bilirubin (0.0-0.5) mg/dL AST (5-37) U/L ALT (0-40) U/L Alkaline Phosphatase (39-117) U/L Troponin I High Sens (<3.5-35.0) ng/L Total Protein (6.5-8.0) g/dL Albumin (3.5-5.0) g/dL Lipase (8-78) U/L Vitamin B12 (200-900) pg/mL 25-OH Vitamin D Total (>30) ng/mL Urine Color Urine Appearance Urine pH (5.0-9.0) Ur Specific [place] (1.005-1.025) Urine Protein (Neg-Trace) mg/dL Urine Glucose (UA) (Negative) mg/dL Urine Ketones (Negative) mg/dL Urine Blood (Negative) Urine Nitrite (Negative) Ur Leukocyte Esterase (Negative) Urine RBC (0-2) /HPF Urine WBC (0-5) /HPF Ur Squamous Epith Cells (0-2) /HPF Urine Bacteria (None Seen) Hyaline Casts (0-2) /LPF Urine Opiates Screen Not Detected (Not Detect) Urine Fentanyl Screen Not Detected (Not Detect) Ur Barbiturates Screen Not Detected (Not Detect) Ur Phencyclidine Scrn Not Detected (Not Detect) Ur Amphetamines Screen Not Detected (Not Detect) U Benzodiazepines Scrn Not Detected (Not Detect) Urine Cocaine Screen Not Detected (Not Detect) U Marijuana (THC) Screen Not Detected (Not Detect) Influenza Type A (PCR) (Negative) Influenza Type B (PCR) (Negative) RSV RNA Qual (PCR) (Negative) SARS-CoV-2 RNA (RT-PCR) (Negative) <Leda Whalen NP - Last Filed: 08/06/22 19:39> Independent Interpretation I performed an independent interpretation of an: EKG (Normal sinus rhythm with ventricular rate of 84 with a incomplete right bundle branch block no acute ischemic change are noted. Similar compared to prior EKG 07/31/2022) and Plain X-Ray <NEREIDA Ridley - Last Filed: 08/06/22 17:55> CT Scan <Leda Whalen NP - Last Filed: 08/06/22 19:39> Interpretation: FINDINGS: No significant abnormality is noted involving the heart, lungs, mediastinum, bony thorax or soft tissues. XR/XR chest 1V IMPRESSION: Unremarkable examination. <NEREIDA Ridley - Last Filed: 08/06/22 17:55> Radiology Impression Discussion of test interpretation with radiology: I have reviewed the radiologist's reading. <NEREIDA Ridley - Last Filed: 08/06/22 17:55> Radiologist Impression: FINDINGS: Motion limits this study LUNG BASES: Grossly clear? LIVER, GALLBLADDER, AND BILIARY TREE: Grossly within normal limits gallbladder unable to fully characterize due to motion? PANCREAS: Grossly intact.? SPLEEN: Grossly intact? ADRENAL GLANDS: Unremarkable.? KIDNEYS AND URETERS: Grossly within normal limits.? BLADDER: Unremarkable.? GASTROINTESTINAL TRACT: The bowel pattern is felt to be nonobstructing. Again limited evaluation from motion. The appendix is felt to be within normal limits.? ABDOMINAL WALL: Grossly unremarkable. Again motion limits evaluation.? LYMPH NODES: No bulky adenopathy. VASCULAR: Unremarkable. PELVIC VISCERA: Unremarkable.? OSSEOUS STRUCTURES: Unremarkable.? CT/CT abdomen pelvis w IV con IMPRESSION: This exam is limited from motion artifact as described. No gross abnormality is seen here. Correlation needs to be made clinically. Consider repeat scanning if clinically indicated? ? Fleischner guidelines were followed. <Leda Whalen NP - Last Filed: 08/06/22 19:39> External Record Review External record reviewed: Outpatient record and Prior outpatient labs <Leda Whalen NP - Last Filed: 08/06/22 19:39> Chronic Conditions Patient?s care impacted by: Hypertension <NEREIDA Ridley Last Filed: 08/06/22 17:55> Medications Administered Discontinued Medications Generic Name Dose Route Start Last Admin Trade Name Freq PRN Reason Stop Dose Admin Al Hydroxide/Mg Hydroxide 30 ml 02/05/23 15:23 08/06/22 17:05 Magnesium Hydrox/Alum Hydrox 30 Ml Oral.Susp PO 08/06/22 15:24 30 ml ONCE ONE Administration Famotidine 20 mg 08/06/22 15:23 08/06/22 17:05 Famotidine/Pf 20 Mg/2 Ml Vial IVPUSH 08/06/22 15:24 20 mg ONCE ONE Administration Sodium Chloride 1,000 mls @ 999 mls/hr 08/06/22 15:30 08/06/22 18:10 Ns IV 08/06/22 16:30 Infused .Q1H1M OBI Infusion Sodium Chloride 1,000 mls @ 999 mls/hr 08/06/22 17:00 08/06/22 18:34 Ns IVCONT 08/06/22 18:00 Infused .Q1H1M OBI Infusion Iohexol 100 ml 08/06/22 18:20 08/06/22 18:25 Iohexol 350 Mg/Ml 100 Ml Infus..Btl IV 08/06/22 18:21 85 ml ONCE ONE Administration Lorazepam 2 mg 08/06/22 16:57 08/06/22 17:06 Lorazepam 2 Mg/Ml Vial IVPUSH 08/06/22 16:58 2 mg ONCE ONE Administration Ondansetron HCl 4 mg 08/06/22 15:23 08/06/22 17:06 Ondansetron Hcl 4 Mg/2 Ml Vial IVPUSH 08/06/22 15:24 4 mg ONCE ONE Administration <NEREIDA Valladares - Last Filed: 08/06/22 15:27> Medications Administered Discontinued Medications Generic Name Dose Route Start Last Admin Trade Name Freq PRN Reason Stop Dose Admin Al Hydroxide/Mg Hydroxide 30 ml 08/06/22 15:23 08/06/22 17:05 Magnesium Hydrox/Alum Hydrox 30 Ml Oral.Susp PO 08/06/22 15:24 30 ml ONCE ONE Administration Famotidine 20 mg 08/06/22 15:23 08/06/22 17:05 Famotidine/Pf 20 Mg/2 Ml Vial IVPUSH 08/06/22 15:24 20 mg ONCE ONE Administration Sodium Chloride 1,000 mls @ 999 mls/hr 08/06/22 15:30 08/06/22 18:10 Ns IV 08/06/22 16:30 Infused .Q1H1M OBI Infusion Sodium Chloride 1,000 mls @ 999 mls/hr 08/06/22 17:00 08/06/22 18:34 Ns IVCONT 08/06/22 18:00 Infused .Q1H1M OBI Infusion Iohexol 100 ml 08/06/22 18:20 08/06/22 18:25 Iohexol 350 Mg/Ml 100 Ml Infus..Btl IV 08/06/22 18:21 85 ml ONCE ONE Administration Lorazepam 2 mg 08/06/22 16:57 08/06/22 17:06 Lorazepam 2 Mg/Ml Vial IVPUSH 08/06/22 16:58 2 mg ONCE ONE Administration Ondansetron HCl 4 mg 08/06/22 15:23 08/06/22 17:06 Ondansetron Hcl 4 Mg/2 Ml Vial IVPUSH 08/06/22 15:24 4 mg ONCE ONE Administration <NEREIDA Ridley - Last Filed: 08/06/22 17:55> Medications Administered Discontinued Medications Generic Name Dose Route Start Last Admin Trade Name Freq PRN Reason Stop Dose Admin Al Hydroxide/Mg Hydroxide 30 ml 08/06/22 15:23 08/06/22 17:05 Magnesium Hydrox/Alum Hydrox 30 Ml Oral.Susp PO 08/06/22 15:24 30 ml ONCE ONE Administration Famotidine 20 mg 08/06/22 15:23 08/06/22 17:05 Famotidine/Pf 20 Mg/2 Ml Vial IVPUSH 08/06/22 15:24 20 mg ONCE ONE Administration Sodium Chloride 1,000 mls @ 999 mls/hr 08/06/22 15:30 08/06/22 18:10 Ns IV 08/06/22 16:30 Infused .Q1H1M OBI Infusion Sodium Chloride 1,000 mls @ 999 mls/hr 08/06/22 17:00 08/06/22 18:34 Ns IVCONT 08/06/22 18:00 Infused .Q1H1M OBI Infusion Iohexol 100 ml 08/06/22 18:20 08/06/22 18:25 Iohexol 350 Mg/Ml 100 Ml Infus..Btl IV 08/06/22 18:21 85 ml ONCE ONE Administration Lorazepam 2 mg 08/06/22 16:57 08/06/22 17:06 Lorazepam 2 Mg/Ml Vial IVPUSH 08/06/22 16:58 2 mg ONCE ONE Administration Ondansetron HCl 4 mg 08/06/22 15:23 08/06/22 17:06 Ondansetron Hcl 4 Mg/2 Ml Vial IVPUSH 08/06/22 15:24 4 mg ONCE ONE Administration <Leda Whalen NP - Last Filed: 08/06/22 19:39> Discharge Plan Discharge Clinical Impression: Atypical chest pain, Abdominal pain, Anxiety <NEREIDA Valladares - Last Filed: 08/06/22 15:27> Patient Disposition: Home, Self-Care <NEREIDA Valladares - Last Filed: 08/06/22 15:27> Instructions: Abdominal Pain (ED), Noncardiac Chest Pain (ED), Anxiety (ED), Panic Attack (ED) <NEREIDA Valladares - Last Filed: 08/06/22 15:27> Additional Instructions: You were evaluated for abdominal pain. CT scan is negative for acute findings requiring emergent intervention. COVID influenza RSV are negative. Follow-up with primary care physician. Thank you for choosing this emergency department for evaluation. Please follow-up with primary care physician as needed. Return to the emergency department for any new, concerning, or worsening symptoms. <NEREIDA Valladares - Last Filed: 08/06/22 15:27> Prescriptions: No Action hydrochlorothiazide 25 mg tablet 25 mg PO DAILY Qty: 30 2RF <NEREIDA Valladares - Last Filed: 08/06/22 15:27> Referrals: Physician,Unknown J [Primary Care Provider] - (your pcp) <NEREIDA Valladares - Last Filed: 08/06/22 15:27> Print Language: German <NEREIDA Valladares - Last Filed: 08/06/22 15:27>
[2022-08-06 15:24] VITALS: BP 171/90; PULSE 93; RESP 16; TEMP 36.9; O2SAT 99; BMI 31.6
--- NOTE | 2022-08-06 15:24 | ECG_ITS ---
Test Reason : chest pain Blood Pressure : / mmHG Vent. Rate : 084 BPM Atrial Rate : 084 BPM P-R Int : 146 ms QRS Dur : 104 ms QT Int : 384 ms P-R-T Axes : 046 067 021 degrees QTc Int : 453 ms Normal sinus rhythm Incomplete right bundle branch block Borderline ECG When compared with ECG of 31-JUL-2022 12:48, No significant change was found Referred By: Hillary Dowell Electronically Signed By:CLIFF HENDRICKSON MD
[2022-08-06 15:51] LABS: Basophils Absolute Auto 0.1 X10*3/uL (0.0-0.2); Basophils Percent Auto 0.9 % (0-2); Eosinophils Absolute Auto 0.2 X10*3/uL (0.0-0.4); Eosinophils Percent Auto 1.8 % (0-4); Hematocrit 47.4 % (42.0-52.0); Hemoglobin 16.3 g/dl (14.0-18.0); Imm Gran Abs Auto 0.06 X10*3/uL (0.00-0.03); Imm Gran Pct Auto 0.5 % (0.0-0.4); Lymphocytes Absolute Auto 2.9 X10*3/uL (1.2-4.9); Lymphocytes Percent Auto 23.9 % (20-40); Mean Corpuscular HGB Conc 34.4 g/dl (31.0-36.0); Mean Corpuscular Volume 81.3 fL (80.0-98.0); Monocytes Absolute Auto 0.7 X10*3/uL (0.1-1.2); Monocytes Percent Auto 5.5 % (2-11); Neutrophils Absolute Auto 8.2 x10*3/uL (2.0-8.3); Neutrophils Percent Auto 67.4 % (45-73); Platelet Count 565 X10*3/uL (160-400); Red Blood Count 5.83 X10*6/uL (4.60-5.80); Red Cell Distribution Width 13.2 % (11.0-16.0); White Blood Count 12.2 X10*3/uL (4.8-10.8)
[2022-08-06 15:52] LABS: MANUAL DIFF FLAG NO
[2022-08-06 15:59] LABS: Appearance Urine Clear; Color Urine Yellow; Glucose Urine UA Negative (Negative); Leukocyte Esterase Urine Negative (Negative); Nitrite Urine Negative (Negative); PH 7.5 (5.0-9.0); UMIC TRIGGER UACC YES; Urine Blood Negative (Negative); Urine Ketones Negative (Negative); Urine Protein 30 (1+) mg/dL (Neg-Trace)
[2022-08-06 16:02] LABS: Bacteria Urine None Seen (None Seen); Hyaline Casts Urine 0-2 /LPF (0-2); RBC Urine 0-2 /HPF (0-2); Squamous Epithelial Cell Urine 0-2 /HPF (0-2); WBC Urine 0-5 /HPF (0-5)
[2022-08-06 16:05] LABS: Alanine Aminotransferase 49 U/L (0-40); Albumin Level 5.3 g/dL (3.5-5.0); Alkaline Phosphatase 143 U/L (39-117); Anion Gap 18 (12-20); Aspartate Amino Transferase 26 U/L (5-37); Bilirubin Direct 0.2 mg/dL (0.0-0.5); Bilirubin Total 0.7 mg/dL (0.0-1.0); Blood Urea Nitrogen 6 mg/dL (9-16); Calcium 10.5 mg/dL (8.4-10.2); Carbon Dioxide 25 mmol/L (22-29); Chloride 99 mmol/L (96-108); Creatinine Clr Calc Pharmacy 134.6; Estimated Glomerular Filt Rate > 60; Glucose Random 146 mg/dL (60-115); Lipase 16 U/L (8-78); Potassium 3.4 mmol/L (3.3-5.1); Sodium 139 mmol/L (135-145); Total Protein 8.4 g/dL (6.5-8.0)
[2022-08-06 16:15] LABS: Troponin-I High Sensitivity < 3.5 ng/L (<3.5-35.0)
[2022-08-06 16:32] LABS: Influenza A PCR NEGATIVE (Negative); Influenza B PCR NEGATIVE (Negative); Resp Syncy Virus RNA Qual PCR NEGATIVE (Negative); SARS COV2 PCR INHOUSE NEGATIVE (Negative)
[2022-08-06] MEDS: Magnesium Hydrox/Alum Hydrox 30 ML ORAL.SUSP PO (17:05)
[2022-08-06] MEDS: 0.9 % Sodium Chloride 1,000 ML 999 ML IV (17:05)
[2022-08-06] MEDS: Famotidine/PF 20 MG/2 ML VIAL IVPUSH (17:05)
[2022-08-06] MEDS: LORazepam 2 MG/ML VIAL IVPUSH (17:06)
[2022-08-06] MEDS: ondansetron HCL 4 MG/2 ML VIAL IVPUSH (17:06)
[2022-08-06 17:22] LABS: Estimated Average Glucose 117 mg/dL; Hemoglobin A1c % 5.7 %
[2022-08-06 17:34] VITALS: BP 149/93; PULSE 90; RESP 19; TEMP 36.6; O2SAT 98
[2022-08-06] MEDS: 0.9 % Sodium Chloride 1,000 ML 999 ML IVCONT (17:39)
[2022-08-06 17:50] LABS: Vitamin B12 389 pg/mL (200-900); Vitamin D 25-OH Total 15.9 ng/mL (>30)
[2022-08-06 17:51] LABS: Amphetamine Screen Urine Not Detected (Not Detect); Barbiturates, Urine Not Detected (Not Detect); Benzodiazepines Screen Urine Not Detected (Not Detect); Cannabinoid Screen Urine Not Detected (Not Detect); Cocaine Screen Urine Not Detected (Not Detect); Fentanyl, urine Not Detected (Not Detect); Opiate Screen Urine Not Detected (Not Detect); Phencyclidine Screen Urine Not Detected (Not Detect)
[2022-08-06] MEDS: iohexoL 350 MG/ML 100 ML INFUS..BTL IV (18:25)
[2022-08-06 19:46] VITALS: BP 139/75; PULSE 95; RESP 14; TEMP 36.6; O2SAT 97
--- NOTE | 2022-08-06 19:52 | PC.NURSE ---
Pt aox4. IV line removed with no complications. Discharge instructions reviewed with pt. Pt verbalizes understanding.
== END 2022-08-06 19:53 | disposition home or self-care (01) ==
PROVIDERS: Physician Assistant; Physician Assistant Medical; Emergency Provider Internal Medicine
DX: R07.89 Other chest pain (principal); R42 Dizziness and giddiness; R10.13 Epigastric pain; F41.1 Generalized anxiety disorder; F43.0 Acute stress reaction; I10 Essential (primary) hypertension; Z20.822 Contact with and (suspected) exposure to COVID-19; Z20.828 Contact with and (suspected) exposure to other viral communicable diseases; Z79.899 Other long term (current) drug therapy
CPT/HCPCS: 0241U; 36415; 71045; 74177; 80048; 80076; 80307; 81001; 82306; 82607; 83036; 83690; 83735; 84484; 85025; 93005; 96361; 96374; 96375; 99285; J2060; J2405; Q9967

== ENCOUNTER 2023-07-09 11:59 | Outpatient (REF) | payer MEDICAID, OTHER, SELFPAY | END 2023-07-09 12:00 | disposition home or self-care (01) | LOC: HO.HHCL 11:59 | PROVIDERS: Visit Provider Internal Medicine | DX: I10 Essential (primary) hypertension (principal); R73.03 Prediabetes | CPT/HCPCS: 36415; 80048; 80061; 80076; 83036; 85025 ==

== ENCOUNTER 2023-07-26 08:28 | Emergency (ER) | payer MEDICAID, OTHER, SELFPAY ==
[2023-07-26] VITALS (7 sets, daily range): BP systolic 121–140; BP diastolic 68–81; PULSE 70–85; RESP 16–18; TEMP 36.6–37; O2SAT 98–99; BMI 33.3
--- NOTE | 2023-07-26 | ECG_ITS ---
Test Reason : cp Blood Pressure : / mmHG Vent. Rate : 082 BPM Atrial Rate : 082 BPM P-R Int : 148 ms QRS Dur : 098 ms QT Int : 376 ms P-R-T Axes : 038 066 031 degrees QTc Int : 439 ms Normal sinus rhythm Incomplete right bundle branch block Borderline ECG When compared with ECG of 06-AUG-2022 15:38, No significant change was found Referred By: Generic ED Physician Electronically Signed By:Chavo Glover
--- NOTE | ~2023-07-26 | CT_ITS ---
EXAMINATION: CT HEAD W/O IV CONTRAST CT CERVICAL SPINE W/O IV CONTRAST CLINICAL INFORMATION: History of headache and pain. COMPARISON: Head CT from 07/31/2022 TECHNIQUE: Head - Contiguous axial imaging of the head was performed from the skull base to the vertex without the administration of intravenous contrast, and axial images are reconstructed at 2 mm and 5 mm slice thickness. Cervical spine - A volumetric, helical CT acquisition of the cervical spine was obtained without contrast; in addition to the standard set of axial images, multiplanar reformatted images were provided in the coronal and sagittal imaging planes. This CT examination was performed using dose optimization techniques as appropriate, variously including the following: *Automated exposure control *Adjustment of mA and/or kV according to patient size (this includes techniques or standardized protocols for targeted exams where dose is matched to indication/reason for exam; i.e. extremities or head) *Use of iterative reconstruction technique DLP: 1203 mGy-cm (total) FINDINGS: HEAD: No acute intracranial findings. Brain parenchyma has normal attenuation. Brown to white matter differentiation is preserved. No evidence of intracranial hemorrhage, major vascular territory infarction, focal mass effect or midline shift. The ventricles have normal size and configuration. No hydrocephalus or extra-axial fluid collections. The calvarium is intact and the visualized paranasal sinuses, mastoid air cells and middle ear cavities are clear. The temporomandibular joints are normal. The orbits and globes are unremarkable. There appears to be an old mild fracture deformity of the right nasal bone. The old somewhat linear opacity within subcutaneous tissue of the right parietal scalp is likely sequela of remote trauma. CERVICAL SPINE: The cervical spine has normal curvature. The craniocervical junction is normal. The occipital condyles, dens and atlantodental articulation are intact. The vertebral body heights and alignment are maintained. No fractures in the anterior or posterior elements. No prevertebral soft tissue edema or soft tissue hematoma. The disc spaces are preserved. The facet joints and uncovertebral joints are unremarkable. No stenosis of the central spinal canal or neural foramina. The visualized portion of the thyroid gland is normal. Lung apices are excluded from [id number]. CT/CT cervical spine wo IV con IMPRESSION: * No intracranial hemorrhage or other acute intracranial pathology. * No fracture or malalignment in the cervical spine. * There appears to be an old right nasal bone fracture.
--- NOTE | ~2023-07-26 | XR_ITS ---
EXAMINATION: XR CHEST CLINICAL INFORMATION: Chest pain COMPARISON: Chest x-ray on 08/06/2022 TECHNIQUE: Frontal view of the chest was obtained. FINDINGS: vascularity. LUNGS: Lungs are hypoinflated and clear. No pneumothorax is seen. BONES: Bony skeleton is intact. XR/XR chest 1V IMPRESSION: Unchanged Normal chest x-ray.
[2023-07-26 08:55] LABS: MANUAL DIFF FLAG NO
[2023-07-26 08:56] LABS: Basophils Absolute Auto 0.1 X10*3/uL (0.0-0.2); Basophils Percent Auto 0.6 % (0-2); Eosinophils Absolute Auto 0.2 X10*3/uL (0.0-0.4); Eosinophils Percent Auto 1.3 % (0-4); Hematocrit 43.8 % (42.0-52.0); Imm Gran Abs Auto 0.05 X10*3/uL (0.00-0.03); Imm Gran Pct Auto 0.3 % (0.0-0.4); Lymphocytes Absolute Auto 3.6 X10*3/uL (1.2-4.9); Lymphocytes Percent Auto 25.3 % (20-40); Mean Corpuscular HGB Conc 34.2 g/dl (31.0-36.0); Mean Corpuscular Hemoglobin 28.6 pg (27.0-33.0); Mean Corpuscular Volume 83.4 fL (80.0-98.0); Mean Platelet Volume 8.7 fL (9.4-12.4); Monocytes Absolute Auto 0.9 X10*3/uL (0.1-1.2); Monocytes Percent Auto 6.1 % (2-11); Neutrophils Absolute Auto 9.6 x10*3/uL (2.0-8.3); Neutrophils Percent Auto 66.4 % (45-73); Platelet Count 556 X10*3/uL (160-400); Red Blood Count 5.25 X10*6/uL (4.60-5.80); Red Cell Distribution Width 13.5 % (11.0-16.0); White Blood Count 14.4 X10*3/uL (4.8-10.8)
--- NOTE | 2023-07-26 09:15 | PC.NURSE ---
Pt is a&ox4 coming in with 10/10 cp/back pain that started a few days ago, denies injury, has difficult time turning in bed. Skin pwd. MAEI. ambulates with steady gait. Respirations even and unlabored.
[2023-07-26 09:17] LABS: Alanine Aminotransferase 48 U/L (0-40); Albumin Level 4.6 g/dL (3.5-5.0); Alkaline Phosphatase 117 U/L (39-117); Anion Gap 16 (12-20); Aspartate Amino Transferase 25 U/L (5-37); Bilirubin Total 1.3 mg/dL (0.0-1.0); Blood Urea Nitrogen 10 mg/dL (9-16); Calcium 9.6 mg/dL (8.4-10.2); Carbon Dioxide 21 mmol/L (22-29); Chloride 105 mmol/L (96-108); Creatinine Clr Calc Pharmacy 130.1; Estimated Glomerular Filt Rate > 60; Glucose Random 112 mg/dL (60-115); Potassium 3.9 mmol/L (3.3-5.1); Sodium 138 mmol/L (135-145); Total Protein 7.8 g/dL (6.5-8.0)
[2023-07-26 09:20] LABS: COVID-19 Test Negative (Negative); IDNOW Serial# 08D9AD1C
[2023-07-26 09:25] LABS: IDNOW Serial# 152EDE1D; Influenza A Negative (Negative); Influenza B2 Negative (Negative)
[2023-07-26 09:26] LABS: Troponin-I High Sensitivity < 2.7 ng/L (<3.5-35.0)
--- NOTE | 2023-07-26 10:13 | ED.GENADULT ---
HPI - General Adult General Chief complaint: General Medical Stated complaint: back pain Time Seen by Provider: 07/26/23 09:44 Source: patient Mode of arrival: ambulatory Limitations: no limitations History of Present Illness HPI narrative: 32-year-old male history of obesity, HTN presenting to the emergency department with complaints of fatigue, malaise, myalgias, anterior chest wall pain, left shoulder pain, back pain, neck pain, frontal headache that feels like pressure (without visual disturbance, dizziness, trauma, weakness) x2 days. Patient reports he just does not feel well. Patient has been taking [id number] medication for discomfort with little to no relief. Patient denies trauma and lower back pain. He reports he has multiple sick contacts at work who are COVID positive. Patient denies fevers, chills, nausea, vomiting, cough, sore throat, visual disturbances, dizziness, weakness, shortness of breath. No history of IV drug abuse or malignancy. Related Data Previous Rx's Medication Instructions Recorded hydrochlorothiazide 25 mg tablet 25 mg PO DAILY #30 tabs 07/24/22 ketorolac 10 mg tablet 10 mg PO TID PRN pain 5 days #15 07/26/23 tabs lidocaine 5 % topical patch 1 patch topical DAILY PRN pain #15 07/26/23 ea Allergies Allergy/AdvReac Type Severity Reaction Status Date / Time No Known Allergies Allergy Verified 07/26/23 08:36 Review of Systems Review of Systems: Constitutional : No Weight loss, No Fever, No Chills, + Fatigue, + Malaise ENT/Mouth : No sore throat, No Rhinorrhea Eyes: No Eye Pain, No Swelling, No Redness Cardiovascular : No Chest Pain, No SOB, No Dyspnea on Exertion, No Orthopnea, No Edema, No Palpitations Respiratory : No Cough, No Sputum, No Wheezing Gastrointestinal : No Nausea, No Vomiting, No Diarrhea, No Constipation, No abdominal Pain, No Hematochezia, No Melena Genitourinary : No Dysuria, No Urinary Frequency, No Hematuria, Musculoskeletal : No joint pain, + Myalgias, No Joint Swelling, + neck pain, + back pain Skin : No Skin Lesions, No rash Neuro : No Weakness, No Numbness, No Dizziness, No Headache Psych : No Anxiety/Panic, No Depression All other systems reviewed and are negative Yes all other systems are reviewed and are negative [facility] Past Medical History Attestation statement: The following information was validated with the patient. Source: old records reviewed and nursing notes reviewed Medical History Hypertension Social History Social History Alcohol intake: current Alcohol intake frequency: holidays/special occasions only Smoked in Last 30 Days: No Use of substances other than those prescribed or required for medical reasons: No Advance Directives: No Physical Exam ED Vital Signs: Vital Signs - 24 hr 07/26/23 08:32 07/26/23 09:13 07/26/23 10:12 Temperature 98.6 F 98.2 F Pulse Rate 85 72 Respiratory Rate 18 16 18 Blood Pressure 140/81 H 121/68 Pulse Oximetry 98 98 Oxygen Delivery Method Room Air Room Air 07/26/23 11:09 07/26/23 13:48 07/26/23 14:38 Temperature 97.9 F 97.9 F Pulse Rate 70 73 Respiratory Rate 16 16 16 Blood Pressure 124/72 126/69 Pulse Oximetry 98 98 Oxygen Delivery Method Room Air Room Air BMI result Body Mass Index 33.3 vss Appearance: Alert.? Oriented X3.? No acute distress.? Head: Normocephalic, atraumatic, no step-offs or deformities Eyes: Pupils equal, round and reactive to light.? ENT: Pharynx normal.? Neck: Normal inspection.? Neck supple.? Negative Kernig and Brudzinski. + bilateral cervical paraspinous muscle tenderness to palpation bilaterally. CVS: Normal heart rate and rhythm.? Pulses normal.? Respiratory: No respiratory distress.? Breath sounds normal.? Abdomen: Soft and nontender.? Skin: Skin warm and dry.? Normal skin color.? Normal skin turgor.? Extremities: No lower extremity edema.? No calf ttp. 5/5 strength to bilateral upper and lower extremities Back: No midline tenderness, no C-spine tenderness, full range of motion, no CVA tenderness bilaterally + bilateral tenderness in the scapular region radiating into shoulder and anterior chest wall no overlying skin changes. Neuro: Oriented X 3.? No motor deficit.? No sensory deficit. CN 2-12 intact Course Reevaluation(s) Reevaluation #1: Upon chart review it appears as though patient has presented multiple times for the same left anterior chest wall pain, it also appears as though patient moved from [facility] approximately a year ago. History of poor follow-up with PCP and non med compliance. Time: 11:10 Reevaluation #2: CBC leukocytosis without a left shift. Noted to have thrombocytosis at baseline, not an acute finding. Chemistry no acute findings requiring intervention. Patient's total bilirubin 1.3 however is been this elevated in the past this is not a new finding. Troponin negative, EKG nonischemic, chest pain reproducible with palpation unlikely cardiac in origin. No shortness of breath unlikely PE, patient is PERC negative making PE unlikely. CRP and ESR pending. Head and neck scans pending. Chest x-ray pending Time: 11:14 Reevaluation #3: My attending Dr. Watkins evaluate patient who agrees this is unlikely encephalitis or meningitis. Also labs with negative inflammatory markers making this very unlikely. Respiratory pannel pending . Planned DC home. Time: 12:30 Additional Reevaluation(s): 1530 Viral test negative. Patient to be discharged home. Will give Toradol for pain. Medications Administered Discontinued Medications Generic Name Dose Route Start Last Admin Trade Name Freq PRN Reason Stop Dose Admin Ketorolac Tromethamine 15 mg 07/26/23 13:47 07/26/23 14:40 Ketorolac Tromethamine 15 Mg/Ml Vial IVPUSH 07/26/23 13:48 15 mg ONCE ONE Administration Morphine Sulfate 4 mg 07/26/23 10:14 07/26/23 10:26 Morphine Sulfate 4 Mg/Ml Cartridge IVPUSH 07/26/23 10:15 4 mg ONCE ONE Administration Protocol Medical Decision Making Medical Decision Making MDM Narrative: 32-year-old male presents with fatigue, malaise, neck pain, shoulder pain and anterior chest wall pain ongoing for the past 2 days. Multiple sick contacts COVID positive. Physical exam with tenderness to palpation is to bilateral shoulders, anterior chest wall, back, bilateral cervical paraspinous muscles. Negative Kernig and Brudzinski. Afebrile. History and physical exam concerning for flu versus COVID versus RSV versus other viral illness. Other differential includes sinusitis. Unlikely meningitis, encephalitis. Low suspicion for aseptic meningitis. Unlikely intracranial hemorrhage, stroke posterior stroke. Unlikely ACS, PE ( perc negative), dissection. Unlikely cord compression, cauda equina, epidural abscess. Plan at this time labs, imaging, viral testing Differential Diagnosis Differential Diagnoses: The differential diagnosis associated with the presentation includes History and physical exam concerning for flu versus COVID versus RSV versus other viral illness. Other differential includes sinusitis. Unlikely meningitis, encephalitis. Low suspicion for aseptic meningitis. Unlikely intracranial hemorrhage, stroke posterior stroke. Unlikely ACS, PE, dissection. Unlikely cord compression, cauda equina, epidural abscess. Admission/Observation Consideration of admission/observation: Escalation of care including admission/observation considered possible Lab Data MDM Lab Attestation statement: I reviewed the patient's lab results. 07/26/23 08:47 07/26/23 08:47 Labs: Lab Results 07/26/23 07/26/23 07/26/23 Range/Units 08:47 10:32 11:22 WBC 14.4 H (4.8-10.8) X10*3/uL RBC 5.25 (4.60-5.80) X10*6/uL Hgb 15.0 (14.0-18.0) g/dl Hct 43.8 (42.0-52.0) % MCV 83.4 (80.0-98.0) fL MCH 28.6 (27.0-33.0) pg MCHC 34.2 (31.0-36.0) g/dl RDW 13.5 (11.0-16.0) % Plt Count 556 H (160-400) X10*3/uL MPV 8.7 L (9.4-12.4) fL Immature Gran % (Auto) 0.3 (0.0-0.4) % Neut % (Auto) 66.4 (45-73) % Lymph % (Auto) 25.3 (20-40) % Mason % (Auto) 6.1 (2-11) % Eos % (Auto) 1.3 (0-4) % Baso % (Auto) 0.6 (0-2) % Lymph # (Auto) 3.6 (1.2-4.9) X10*3/uL Mason # (Auto) 0.9 (0.1-1.2) X10*3/uL Eos # (Auto) 0.2 (0.0-0.4) X10*3/uL Baso # (Auto) 0.1 (0.0-0.2) X10*3/uL Abs Immat Gran (auto) 0.05 H (0.00-0.03) X10*3/uL Absolute Neuts (auto) 9.6 H (2.0-8.3) x10*3/uL Absolute Nucleated RBC 0.000 (0.0-0.012) X10*3/uL Nucleated RBC % (auto) 0.0 (0.0-0.2) /100WBC ESR 6 (0-15) MM/HR Sodium 138 (135-145) mmol/L Potassium 3.9 (3.3-5.1) mmol/L Chloride 105 (96-108) mmol/L Carbon Dioxide 21 L (22-29) mmol/L Anion Gap 16 (12-20) BUN 10 (9-16) mg/dL Creatinine 0.82 (0.5-1.4) mg/dL Estim Creat Clear Calc 130.1 Estimated GFR > 60 Random Glucose 112 (60-115) mg/dL Calcium 9.6 (8.4-10.2) mg/dL Magnesium 2.0 (1.6-2.6) mg/dL Total Bilirubin 1.3 H (0.0-1.0) mg/dL AST 25 (5-37) U/L ALT 48 H (0-40) U/L Alkaline Phosphatase 117 (39-117) U/L Troponin I High Sens < 2.7 (<3.5-35.0) ng/L C-Reactive Protein 0.22 (< or = 0.50) mg/dL Total Protein 7.8 (6.5-8.0) g/dL Albumin 4.6 (3.5-5.0) g/dL Urine Color Urine Appearance Urine pH (5.0-9.0) Ur Specific [place] (1.005-1.025) Urine Protein (Neg-Trace) mg/dL Urine Glucose (UA) (Negative) mg/dL Urine Ketones (Negative) mg/dL Urine Blood (Negative) Urine Nitrite (Negative) Ur Leukocyte Esterase (Negative) Respiratory Panel [place] See Note Adenovirus (Rapid PCR) Not Detected (Not Detect.) B.pert (TEM-PCR) Not Detected (Not Detect.) B.parapertussis DNA PCR Not Detected (Not Detect.) C. pneumoniae DNA (PCR) Not Detected (Not Detect.) Coronavirus OC43 (PCR) Not Detected (Not Detect.) Coronavirus HKU1 (PCR) Not Detected (Not Detect.) Coronavirus 229E (PCR) Not Detected (Not Detect.) COVID-19 (ZOEY) Negative Negative (Negative) COVID-19 Clin Com See Note See Note Coronavirus NL63 (PCR) Not Detected (Not Detect.) Monoscreen Negative (Negative) Human Metapneumovir PCR Not Detected (Not Detect.) Influenza Type A (TYREE) Negative Negative (Negative) Influenza A (RT-PCR) Not Detected (Not Detect.) Influenza Type B (TYREE) Negative Negative (Negative) Influenza B (RT-PCR) Not Detected (Not Detect.) Influenza A & B Note See Note See Note M. pneumoniae (PCR) Not Detected (Not Detect.) Parainfluenza 1 (PCR) Not Detected (Not Detect.) Parainfluenza 2 (PCR) Not Detected (Not Detect.) Parainfluenza 3 (PCR) Not Detected (Not Detect.) Parainfluenza 4 (PCR) Not Detected (Not Detect.) RSV (PCR) Not Detected (Not Detect.) Entero/Rhino (PCR) Not Detected (Not Detect.) SARS-CoV-2 RNA (RT-PCR) Not Detected (Not Detect.) 07/26/23 Range/Units 14:49 WBC (4.8-10.8) X10*3/uL RBC (4.60-5.80) X10*6/uL Hgb (14.0-18.0) g/dl Hct (42.0-52.0) % MCV (80.0-98.0) fL MCH (27.0-33.0) pg MCHC (31.0-36.0) g/dl RDW (11.0-16.0) % Plt Count (160-400) X10*3/uL MPV (9.4-12.4) fL Immature Gran % (Auto) (0.0-0.4) % Neut % (Auto) (45-73) % Lymph % (Auto) (20-40) % Mason % (Auto) (2-11) % Eos % (Auto) (0-4) % Baso % (Auto) (0-2) % Lymph # (Auto) (1.2-4.9) X10*3/uL Mason # (Auto) (0.1-1.2) X10*3/uL Eos # (Auto) (0.0-0.4) X10*3/uL Baso # (Auto) (0.0-0.2) X10*3/uL Abs Immat Gran (auto) (0.00-0.03) X10*3/uL Absolute Neuts (auto) (2.0-8.3) x10*3/uL Absolute Nucleated RBC (0.0-0.012) X10*3/uL Nucleated RBC % (auto) (0.0-0.2) /100WBC ESR (0-15) MM/HR Sodium (135-145) mmol/L Potassium (3.3-5.1) mmol/L Chloride (96-108) mmol/L Carbon Dioxide (22-29) mmol/L Anion Gap (12-20) BUN (9-16) mg/dL Creatinine (0.5-1.4) mg/dL Estim Creat Clear Calc Estimated GFR Random Glucose (60-115) mg/dL Calcium (8.4-10.2) mg/dL Magnesium (1.6-2.6) mg/dL Total Bilirubin (0.0-1.0) mg/dL AST (5-37) U/L ALT (0-40) U/L Alkaline Phosphatase (39-117) U/L Troponin I High Sens (<3.5-35.0) ng/L C-Reactive Protein (< or = 0.50) mg/dL Total Protein (6.5-8.0) g/dL Albumin (3.5-5.0) g/dL Urine Color Yellow Urine Appearance Clear Urine pH 8.5 (5.0-9.0) Ur Specific [place] 1.010 (1.005-1.025) Urine Protein Negative (Neg-Trace) mg/dL Urine Glucose (UA) Negative (Negative) mg/dL Urine Ketones Negative (Negative) mg/dL Urine Blood Negative (Negative) Urine Nitrite Negative (Negative) Ur Leukocyte Esterase Negative (Negative) Respiratory Panel [place] Adenovirus (Rapid PCR) (Not Detect.) B.pert (TEM-PCR) (Not Detect.) B.parapertussis DNA PCR (Not Detect.) C. pneumoniae DNA (PCR) (Not Detect.) Coronavirus OC43 (PCR) (Not Detect.) Coronavirus HKU1 (PCR) (Not Detect.) Coronavirus 229E (PCR) (Not Detect.) COVID-19 (ZOEY) (Negative) COVID-19 Clin Com Coronavirus NL63 (PCR) (Not Detect.) Monoscreen (Negative) Human Metapneumovir PCR (Not Detect.) Influenza Type A (TYREE) (Negative) Influenza A (RT-PCR) (Not Detect.) Influenza Type B (TYREE) (Negative) Influenza B (RT-PCR) (Not Detect.) Influenza A & B Note M. pneumoniae (PCR) (Not Detect.) Parainfluenza 1 (PCR) (Not Detect.) Parainfluenza 2 (PCR) (Not Detect.) Parainfluenza 3 (PCR) (Not Detect.) Parainfluenza 4 (PCR) (Not Detect.) RSV (PCR) (Not Detect.) Entero/Rhino (PCR) (Not Detect.) SARS-CoV-2 RNA (RT-PCR) (Not Detect.) Independent Interpretation I performed an independent interpretation of an: EKG (Ventricular rate of 82, NH normal, QRS normal, QT/QTC normal, patient noted to have an incomplete right bundle-branch block, no significant changes when compared to previous. No signs of acute ischemia.), Plain X-Ray (XR/XR chest 1V IMPRESSION: Unchanged Normal chest x-ray.) and CT Scan ( CT/CT head/brain wo IV con IMPRESSION: * No intracranial hemorrhage or other acute intracranial pathology. * No fracture or malalignment in the cervical spine. * There appears to be an old right nasal bone fracture.) Radiology Impression Discussion of test interpretation with radiology: I have reviewed the radiologist's reading. External Record Review External record reviewed: Inpatient record, Office record, Outpatient record, Prior outpatient labs, Prior outpatient radiology, Primary care record and Outside ED record Prescription Management I considered prescription management with: Pain Medication (Toradol) Chronic Conditions Patient?s care impacted by: Hypertension and Other (Obesity) Critical Care Time Critical Care Time Critical Care Time: Yes Total Critical Care Time: 45 Attestation: I attest to this time spent taking care of the patient, obtaining history, physical, reviewing labs, imaging, speaking to my attending, speaking to specialist. Discharge Plan Discharge Clinical Impression: Viral illness, Neck pain, Chest pain Patient Disposition: Home, Self-Care Instructions: Chest Pain (ED), Viral Syndrome (ED), Neck Pain (ED) Additional Instructions: Take your medications as prescribed. If you were prescribed antibiotics today, it is important that you take your medication to their entirety, do not skip any doses, do not finish them early. Follow-up with your primary care provider this week. Return to the emergency department with new or worsening symptoms. Such as fevers, chills, chest pain, shortness of breath, nausea, vomiting, dizziness, headache, vision changes, lethargy In case of emergency call 911 Toradol has been sent to your pharmacy, you tolerated this well in the department. Please take this as prescribed do not take this with ibuprofen, or other NSAIDs, do not mix this with alcohol. Side effects of this medication including increased risk for bleeding and possible kidney injury. Prescriptions: New ketorolac 10 mg tablet 10 mg PO TID PRN (Reason: pain) 5 Days Qty: 15 0RF lidocaine 5 % adhesive patch,medicated 1 patch topical DAILY PRN (Reason: pain) Qty: 15 0RF Rx Instructions: leave on most painful area for up to 12 hrs No Action hydrochlorothiazide 25 mg tablet 25 mg PO DAILY Qty: 30 2RF Referrals: Edith Shelley MD [Primary Care Provider] - 2 days Stand Alone Forms: Work/School Release
[2023-07-26] MEDS: Morphine Sulfate 4 MG/ML CARTRIDGE IVPUSH (10:26)
[2023-07-26 11:01] LABS: COVID-19 Test Negative (Negative); IDNOW Serial# 08D9AD1C
[2023-07-26 11:02] LABS: IDNOW Serial# 152EDE1D; Influenza A Negative (Negative); Influenza B2 Negative (Negative)
[2023-07-26 11:21] LABS: C Reactive Protein 0.22 mg/dL (< or = 0.50)
[2023-07-26 12:00] LABS: Monotest Negative (Negative)
[2023-07-26 12:04] LABS: Erythrocyte Sedimentation Rate 6 MM/HR (0-15)
[2023-07-26] MEDS: Ketorolac Tromethamine 15 MG/ML VIAL IVPUSH (14:40)
[2023-07-26 15:00] LABS: Appearance Urine Clear; Color Urine Yellow; Glucose Urine UA Negative (Negative); Leukocyte Esterase Urine Negative (Negative); Nitrite Urine Negative (Negative); PH 8.5 (5.0-9.0); Urine Blood Negative (Negative); Urine Ketones Negative (Negative); Urine Protein Negative (Neg-Trace)
[2023-07-26 15:12] LABS: Adenovirus PCR Not Detected (Not Detect.); Bordetella parapertussis PCR Not Detected (Not Detect.); Bordetella pertussis PCR Not Detected (Not Detect.); Chlamydia pneumoniae PCR Not Detected (Not Detect.); Coronavirus 229E PCR Not Detected (Not Detect.); Coronavirus HKU1 PCR Not Detected (Not Detect.); Coronavirus NL63 PCR Not Detected (Not Detect.); Coronavirus OC43 PCR Not Detected (Not Detect.); Human metapneumovirus PCR Not Detected (Not Detect.); Influenza A PCR Not Detected (Not Detect.); Influenza B PCR Not Detected (Not Detect.); Mycoplasma pneumoniae PCR Not Detected (Not Detect.); Parainfluenza 1 PCR Not Detected (Not Detect.); Parainfluenza 2 PCR Not Detected (Not Detect.); Parainfluenza 3 PCR Not Detected (Not Detect.); Parainfluenza 4 PCR Not Detected (Not Detect.); RSV PCR Not Detected (Not Detect.); Rhino/Enterovirus PCR Not Detected (Not Detect.)
[2023-07-26 15:23] LABS: SARS-CoV-2 PCR Not Detected (Not Detect.)
[2023-07-27 09:18] LABS: Lyme Abs Screen <0.90 index
== END 2023-07-26 16:31 | disposition home or self-care (01) ==
PROVIDERS: Physician Assistant; Emergency Provider Emergency Medicine; PCP Internal Medicine
DX: B34.9 Viral infection, unspecified (principal); R07.9 Chest pain, unspecified; M54.2 Cervicalgia; I10 Essential (primary) hypertension; Z11.52 Encounter for screening for COVID-19
CPT/HCPCS: 70450; 71045; 72125; 80053; 81003; 83735; 84484; 85025; 85652; 86140; 86308; 86617; 86618; 87502; 87633; 87635; 93005; 96374; 96375; 99284; 99285; J1885; J2270

== ENCOUNTER → 2023-07-26 08:44 | Outpatient (BNV) | payer SELFPAY | PROVIDERS: Emergency Provider Emergency Medicine; PCP Internal Medicine; Visit Provider Internal Medicine Cardiovascular Disease | DX: I45.19 Other right bundle-branch block (principal) | CPT/HCPCS: 93010 ==

== ENCOUNTER 2023-09-24 14:20 | Outpatient (REF) | payer MEDICAID, OTHER, SELFPAY ==
[2023-09-24 16:10] LABS: MANUAL DIFF FLAG NO
[2023-09-24 16:25] LABS: Basophils Absolute Auto 0.1 X10*3/uL (0.0-0.2); Basophils Percent Auto 0.7 % (0-2); Eosinophils Absolute Auto 0.3 X10*3/uL (0.0-0.4); Eosinophils Percent Auto 2.6 % (0-4); Hematocrit 45.6 % (42.0-52.0); Imm Gran Abs Auto 0.05 X10*3/uL (0.00-0.03); Imm Gran Pct Auto 0.5 % (0.0-0.4); Lymphocytes Absolute Auto 3.3 X10*3/uL (1.2-4.9); Lymphocytes Percent Auto 29.7 % (20-40); Mean Corpuscular HGB Conc 32.9 g/dl (31.0-36.0); Mean Corpuscular Hemoglobin 28.7 pg (27.0-33.0); Mean Corpuscular Volume 87.2 fL (80.0-98.0); Mean Platelet Volume 9.3 fL (9.4-12.4); Monocytes Absolute Auto 0.6 X10*3/uL (0.1-1.2); Monocytes Percent Auto 5.6 % (2-11); Neutrophils Absolute Auto 6.7 x10*3/uL (2.0-8.3); Neutrophils Percent Auto 60.9 % (45-73); Platelet Count 570 X10*3/uL (160-400); Red Blood Count 5.23 X10*6/uL (4.60-5.80); Red Cell Distribution Width 13.6 % (11.0-16.0); White Blood Count 10.9 X10*3/uL (4.8-10.8)
[2023-09-24 16:50] LABS: Alanine Aminotransferase 62 U/L (0-40); Albumin Level 4.9 g/dL (3.5-5.0); Alkaline Phosphatase 127 U/L (39-117); Amylase 73 U/L (28-100); Anion Gap 11 (12-20); Aspartate Amino Transferase 31 U/L (5-37); Bilirubin Direct 0.3 mg/dL (0.0-0.5); Bilirubin Total 0.8 mg/dL (0.0-1.0); Blood Urea Nitrogen 11 mg/dL (9-16); Calcium 9.9 mg/dL (8.4-10.2); Carbon Dioxide 26 mmol/L (22-29); Chloride 106 mmol/L (96-108); Estimated Glomerular Filt Rate > 60; Glucose Random 92 mg/dL (60-115); Lipase 20 U/L (8-78); Potassium 3.9 mmol/L (3.3-5.1); Sodium 139 mmol/L (135-145); Total Protein 8.2 g/dL (6.5-8.0)
[2023-09-25 04:42] LABS: HIV AB/AG Nonreactive (Nonreactive); HIV Num 1 0.06 S/CO (0.00-0.99); ~HepC Num1 0.11 S/CO (0.00-0.79); ~Hepatitis C Antibody Nonreactive (Nonreactive)
[2023-09-25 11:38] LABS: RPR Rapid Plasma Reagin NON-REACTIVE (NON-REACTIVE)
== END 2023-09-24 14:21 | disposition home or self-care (01) ==
LOC: HO.HHCL 14:20
PROVIDERS: Visit Provider Nurse Practitioner Primary Care
DX: Z11.4 Encounter for screening for human immunodeficiency virus [HIV] (principal); R10.12 Left upper quadrant pain; Z20.2 Contact with and (suspected) exposure to infections with a predominantly sexual mode of transmission
CPT/HCPCS: 36415; 80053; 82150; 82248; 83690; 85025; 86592; 86803; 87389

== ENCOUNTER 2024-05-05 08:13 | Outpatient (REF) | payer MEDICAID, OTHER, SELFPAY ==
[2024-05-05 11:11] LABS: MANUAL DIFF FLAG NO
[2024-05-05 11:24] LABS: Basophils Absolute Auto 0.1 X10*3/uL (0.0-0.2); Basophils Percent Auto 0.8 % (0-2); Eosinophils Absolute Auto 0.3 X10*3/uL (0.0-0.4); Eosinophils Percent Auto 3.5 % (0-4); Hematocrit 44.7 % (42.0-52.0); Hemoglobin 14.9 g/dl (14.0-18.0); Imm Gran Abs Auto 0.03 X10*3/uL (0.00-0.03); Imm Gran Pct Auto 0.3 % (0.0-0.4); Lymphocytes Absolute Auto 3.1 X10*3/uL (1.2-4.9); Lymphocytes Percent Auto 35.7 % (20-40); Mean Corpuscular HGB Conc 33.3 g/dl (31.0-36.0); Mean Corpuscular Hemoglobin 28.7 pg (27.0-33.0); Mean Platelet Volume 9.9 fL (9.4-12.4); Monocytes Absolute Auto 0.6 X10*3/uL (0.1-1.2); Monocytes Percent Auto 7.1 % (2-11); Neutrophils Absolute Auto 4.6 x10*3/uL (2.0-8.3); Neutrophils Percent Auto 52.6 % (45-73); Platelet Count 463 X10*3/uL (160-400); Red Cell Distribution Width 13.4 % (11.0-16.0); White Blood Count 8.8 X10*3/uL (4.8-10.8)
[2024-05-05 13:05] LABS: Alanine Aminotransferase 88 U/L (0-40); Albumin Level 4.6 g/dL (3.5-5.0); Alkaline Phosphatase 123 U/L (39-117); Anion Gap 14 (12-20); Aspartate Amino Transferase 51 U/L (5-37); Bilirubin Total 0.9 mg/dL (0.0-1.0); Blood Urea Nitrogen 10 mg/dL (9-16); Calcium 9.4 mg/dL (8.4-10.2); Carbon Dioxide 24 mmol/L (22-29); Chloride 105 mmol/L (96-108); Cholesterol 216 mg/dL (<200); Estimated Glomerular Filt Rate > 60; Glucose Random 102 mg/dL (60-115); HDL Cholesterol 37 mg/dL (>40); LDL Cholesterol Calculated 157 mg/dL (<100); Sodium 139 mmol/L (135-145); Total Protein 7.5 g/dL (6.5-8.0); Triglycerides 112 mg/dL (<150)
[2024-05-05 13:09] LABS: TSH reflex Free T4 1.91 uIU/mL (0.32-4.0); Vitamin D 25-OH Total 57.4 ng/mL (>30)
[2024-05-05 13:26] LABS: Estimated Average Glucose 126 mg/dL; Hemoglobin A1C 233.0026 umol/L; Total Hemoglobin (HGBA1C) 5541.5069 umol/L
[2024-05-06 03:44] LABS: HIV AB/AG Nonreactive (Nonreactive); HIV Num 1 0.06 S/CO (0.00-0.99); ~HepC Num1 0.11 S/CO (0.00-0.79); ~Hepatitis C Antibody Nonreactive (Nonreactive)
== END 2024-05-05 08:14 | disposition home or self-care (01) ==
LOC: HO.HHCL 08:13
PROVIDERS: Visit Provider Internal Medicine
DX: I10 Essential (primary) hypertension (principal)
CPT/HCPCS: 36415; 80053; 80061; 82306; 83036; 84443; 85025; 86803; 87389

== ENCOUNTER 2024-09-04 11:32 | Outpatient (REF) | payer MEDICAID, OTHER, SELFPAY ==
[2024-09-04 13:32] LABS: MANUAL DIFF FLAG NO
[2024-09-04 13:40] LABS: Basophils Absolute Auto 0.1 X10*3/uL (0.0-0.2); Basophils Percent Auto 0.6 % (0-2); Eosinophils Absolute Auto 0.1 X10*3/uL (0.0-0.4); Eosinophils Percent Auto 0.6 % (0-4); Hematocrit 43.5 % (42.0-52.0); Imm Gran Abs Auto 0.03 X10*3/uL (0.00-0.03); Imm Gran Pct Auto 0.3 % (0.0-0.4); Lymphocytes Absolute Auto 2.4 X10*3/uL (1.2-4.9); Mean Corpuscular HGB Conc 34.5 g/dl (31.0-36.0); Mean Corpuscular Hemoglobin 29.3 pg (27.0-33.0); Mean Platelet Volume 9.4 fL (9.4-12.4); Monocytes Absolute Auto 0.6 X10*3/uL (0.1-1.2); Neutrophils Absolute Auto 6.4 x10*3/uL (2.0-8.3); Neutrophils Percent Auto 67.5 % (45-73); Platelet Count 501 X10*3/uL (160-400); Red Blood Count 5.12 X10*6/uL (4.60-5.80); Red Cell Distribution Width 13.8 % (11.0-16.0); White Blood Count 9.5 X10*3/uL (4.8-10.8)
[2024-09-04 13:41] LABS: Estimated Average Glucose 114 mg/dL; Hemoglobin A1C 148.8339 umol/L; Hemoglobin A1c % 5.6 % (<6.0)
[2024-09-04 14:04] LABS: Alanine Aminotransferase 111 U/L (0-40); Albumin Level 4.8 g/dL (3.5-5.0); Alkaline Phosphatase 129 U/L (39-117); Anion Gap 13 (12-20); Aspartate Amino Transferase 52 U/L (5-37); Bilirubin Direct 0.4 mg/dL (0.0-0.5); Bilirubin Total 1.4 mg/dL (0.0-1.0); Blood Urea Nitrogen 13 mg/dL (9-16); Carbon Dioxide 25 mmol/L (22-29); Chloride 103 mmol/L (96-108); Cholesterol 248 mg/dL (<200); Estimated Glomerular Filt Rate > 60; Glucose Random 106 mg/dL (60-115); HDL Cholesterol 41 mg/dL (>40); LDL Cholesterol Calculated 171 mg/dL (<100); Potassium 4.4 mmol/L (3.3-5.1); Sodium 137 mmol/L (135-145); Total Protein 8.6 g/dL (6.5-8.0); Triglycerides 184 mg/dL (<150)
--- OUTSIDE RECORDS SUMMARY | 2024-09-04 14:11 | XMS_ITS | Referral Summary ---
Author Organization [facility] Address [address] [place] [address] Care Team Providers Care Printed Circuit Boards Solder Leveler Name Role Phone Edith Shelley MD Primary Care Provider Allergies No known active allergies Medications hydroCHLOROthiazide (HYDRODIURIL) 25 mg tablet Take 25 mg by mouth daily. Active omeprazole (PriLOSEC) 20 mg capsule Take 20 mg by mouth 2 times daily. 3 Active lisinopriL (PRINIVIL,ZESTRIL) 10 mg tablet Take 10 mg by mouth once a day. Active fish oil 340-1,000 mg capsule Take 1,000 mg by mouth once a day. Active meclizine (ANTIVERT) 25 mg tablet Take 25 mg by mouth 3 times daily as needed. [address] (PROTONIX) 20 mg tablet SMARTSI Tablet(s) By Mouth Every Morning 3 Active Deep Sea Nasal 0.65 % nasal spray SMARTSI-2 [place](s) Both Nares Every 2-3 Hours 3 Active carvediloL (COREG) 6.25 mg tabletIndications:H ypertension, unspecified type Take 1 tablet (6.25 mg total) by mouth 2 times a day with meals. 180 tablet 3 4 11/07/19 25 Active atorvastatin (LIPITOR) 20 mg tabletIndications:H yperlipidemia, unspecified hyperlipidemia type Take 1 tablet (20 mg total) by mouth once a day. 90 tablet 3 4 11/07/19 25 Active Active Problems Problem Noted Date Diagnosed Date Heartburn 01/23/2023 Assessment & Plan (01/23/2023 9:53 AM EDT): Collection of symptoms that the patient is reporting is not indicative of any GI pathophysiology. He is having chest pains which are radiating to his upper back, has associated shortness of breath, he is waking up in the morning with pressure in his left chest, has a pressure-like sensation in his neck and throat... These are not necessarily pointing to a GI phenomenon. Regardless, to get some objective data (in case he is having a difficult time just describing what he is feeling), I did offer him an upper endoscopy. I explained the procedure and the risks and he agrees to proceed. There might be logistical issues in terms of getting this scheduled because he does need a ride from the procedure, he does not live in this area, does not have a car, has some issues with his job, and has to arrange a ride with a cousin/friend. I informed him that we can work with him; the procedure does not have to be with me. It can be with any [facility] GI physician so long as they can accommodate his availability. Interestingly, he had some issues taking the omeprazole, claiming he had a sensation that he was going to and damage his heart. I am not really sure what to make of it. I did not push the fact that he should try the PPI because of not convinced he has heartburn or reflux. We can make further recommendations once the endoscopy is done and based on the findings then. Because he repeatedly referenced issues with breathing (whether that was shortness of breath in the mornings, shortness of breath associated with the pains... one suggestion might be to have him see a academic manager) Social History Tobacco Use Types Packs/Day Years Used Date Smoking Tobacco: Former Cigarettes Smokeless Tobacco: Never Tobacco Cessation:Counseling Given: Not Answered Alcohol Use Standard Drinks/Week Comments Yes 0 (1 standard drink = 0.6 oz pur e alcohol) Social Sex and Gender Information Value Date Recorded Sex Assigned at Not on file Legal Sex Male 9:06 AM EST Gender Identity Not on file Sexual Orientation Not on file Last Filed Vital Signs Vital Sign Reading Time Taken Comments Blood Pressure 120/85 04/20/2023 10:14 AM EDT Pulse 70 04/20/2023 10:14 AM EDT Temperature 36.3 ??C (97.3 ??F) 04/20/2023 9:30 AM ED T Respiratory Rate 16 04/20/2023 10:14 AM EDT Oxygen Saturation 100% 04/20/2023 10:14 AM EDT Inhaled Oxygen Concentration - - Weight 88.5 kg (195 lb) 04/20/2023 8:07 AM EDT Height 165.1 cm (5' 5 ) 04/20/2023 8:07 AM EDT Body Mass Index 32.45 04/20/2023 8:07 AM EDT Plan of Treatment Not on file Procedures * Due to [place] [employer] law, this organization might not be sharing negative HIV tests. Procedure Name Priority Date/Time Associated Diagnosis Comments BASIC METABOLIC PANEL Routine 09/13/2022 10:33 AM EDT Hyperlipidemia, unspecified hyperlipidemia type from Last 3 Months or Most Recently Relevant to Health Maintenance Results * Due to [place] [employer] law, this organization might not be sharing negative HIV tests. * (ABNORMAL) Basic metabolic panel (09/13/2022 10:33 AM EDT) NA 138 135 - 145 mmol/L 09/13/2022 11:24 AM EDT [facility] K 3.7 3.5 - 5.3 mmol/L 09/13/2022 11:24 AM EDT [facility] Cl 102 97 - 110 mmol/L 09/13/2022 11:24 AM EDT [facility] CO2 28 24 - 32 mmol/L 09/13/2022 11:24 AM EDT [facility] BUN 13 7 - 23 mg/dL 09/13/2022 11:24 AM EDT [facility] Creatinine 0.68 0.60 - 1.30 mg/dL 09/13/2022 11:24 AM EDT [facility] Glucose 108(H) 70 - 99 mg/dL 09/13/2022 11:24 AM EDT [facility] Calcium 10.0 8.7 - 10.7 mg/dL 09/13/2022 11:24 AM EDT [facility] Anion Gap 8 5 - 15 09/13/2022 11:24 AM EDT [facility] eGFR >90 >=90 mL/min/1. 73m2 09/13/2022 11:24 AM EDT [facility] Comment: Estimated Glomerular Filtration Rate (GFR) calculated using the CKD-EPI refit equation. The different stages of CKD form a continuum. The stages of CKD are classified as follows : Stage 1: Normal or increased GFR (>90 mL/min/1.73 m2) Stage 2: Mild reduction in GFR (60-89 mL/min/1.73 m2) Stage 3a: Moderate reduction in GFR (45-59 mL/min/1.73 m2) Stage 3b: Moderate reduction in GFR (30-44 mL/min/1.73 m2) Stage 4: Severe reduction in GFR (15-29 mL/min/1.73 m2) Stage 5: Kidney failure (GFR < 15 mL/min/1.73 m2 or dialysis) Blood Structure of peripheral vein / Unknown Venipuncture / Unknown 09/13/2022 10:33 AM EDT 09/13/2022 10:40 AM EDT us Martinez Michelle MD LAB BLOOD ORDERABLES Final R esult [facility] [address] [place] [address], from Last 3 Months or Most Recently Relevant to Health Maintenance [facility] HS[facility] Care Teams Printed Circuit Boards Solder Leveler Relationship Specialty Start Date End Date Edith Shelley MD [address] [place] [id number] PCP - General Internal Medicine 04/20/23
--- OUTSIDE RECORDS SUMMARY | 2024-09-04 14:12 | XMS_ITS | Clinical Summary ---
Author Organization [facility] Address [address] [place] [address] Care Team Providers Care Back Closer Name Role Phone Edith Shelley MD Primary [...] Sea Nasal 0.65 % nasal spray SMARTSI-2 [place](s) Both Nares Every 2-3 Hours 3 Active [...] with me. It can be with any [facility] GI physician so long as they can [...] might be to have him see a color control supervisor) Social History Tobacco Use Types Packs/Day Years [...] 04/20/2023 8:07 AM EDT Plan of Treatment Health Maintenance Due Date Last Done Comments Hepatitis C Screening 1989 Varicella Vaccines (1 of 2 - 13+ 2-dose series) 2002 Hepatitis B Vaccines (1 of 3 - 19+ 3-dose series) 2008 Basic Metabolic Panel 11/25/2023 11/24/2022 , 09/13/2022, 08/28/2022 COVID-19 Vaccine (2 - 2023-2 5 season) 2024 07/09/2023 Influenza Vaccine (#1) 2024 07/09/2023 Alcohol/Substance Use Screening 07/02/2024 Depression Screening and Follow-Up 07/02/2024 Social Drivers of Health Annual Screening 07/02/2024 DTaP,Tdap,and Td Vaccines (2 - Td or Tdap) 11/04/2033 11/05/2023 RSV Vaccine (60+ years old and patients) (1 - 1-dose 75+ series) 2064 HIV Screening Completed 11/24/2022 Pneumococcal Vaccine: Pediatric (0-5 Years) and At-Risk Patients (6-50 Years) Aged Out No longer eligible based on patient's age to complete this topic Procedures * Due to [place] law, this organization might not be sharing negative HIV tests. Procedure Name Priority Date/Time Associated Diagnosis Comments BASIC METABOLIC PANEL Routine 09/13/2022 10:33 AM EDT Hyperlipidemia, unspecified hyperlipidemia type from Last 3 Months or Most Recently Relevant to Health Maintenance Results * Due to [place] [employer] law, this organization might not be sharing negative HIV tests. * (ABNORMAL) Basic metabolic panel (09/13/2022 10:33 AM EDT) NA 138 135 - 145 mmol/L 09/13/2022 11:24 AM EDT [facility] K 3.7 3.5 - 5.3 mmol/L 09/13/2022 11:24 AM EDT [facility] Cl 102 97 - 110 mmol/L 09/13/2022 11:24 AM EDT [facility] CO2 28 24 - 32 mmol/L 09/13/2022 11:24 AM EDT [facility] BUN 13 7 - 23 mg/dL 09/13/2022 11:24 AM EDT [facility] Creatinine 0.68 0.60 - 1.30 mg/dL 09/13/2022 11:24 AM EDT [facility] Glucose 108(H) 70 - 99 mg/dL 09/13/2022 11:24 AM EDT [facility] Calcium 10.0 8.7 - 10.7 mg/dL 09/13/2022 11:24 AM EDT [facility] Anion Gap 8 5 - 15 09/13/2022 11:24 AM SwapdomT [facility] eGFR >90 >=90 mL/min/1. 73m2 09/13/2022 11:24 AM SwapdomT [facility] Comment: Estimated Glomerular Filtration [...] MD LAB BLOOD ORDERABLES Final R esult [facility] [address] [place] [address], [place] from Last 3 Months or Most Recently Relevant to Health Maintenance [facility] Care Teams Back Closer Relationship Specialty Start Date End Date Edith Shelley MD [address] [place] [phone] PCP - General Internal Medicine 04/20/23
--- OUTSIDE RECORDS SUMMARY | 2024-09-04 14:12 | XMS_ITS | Clinical Summary ---
Author Organization [employer] Address [address] [place] [address] Care Team Providers Care Batch Tester Name Role Phone Edith Shelley MD Primary Care Provide r Allergies No known active allergies Medications * This document contains information received from the source organization and may not represent a complete record from that organization. sodium chloride ([place] Nasal [place]) 0.65 % nasal sprayIndications :Congestion of nasal sinus 1-2 sprays on each nostril every 2-3 hours as needed for nasal congestion 30 mL 1 04/28/20 24 Active carvedilol (Coreg) 6.25 MG tabletIndication s:Primary hypertension Take 1 tablet (6.25 mg) by mouth with breakfast and with evening meal. 60 tablet 11 07/14/19 25 026 Active FLUoxetine (PROzac) 40 MG capsuleIndicatio ns:Anxiety disorder, unspecified type Take 1 capsule (40 mg) by mouth Once per day. 90 capsule 1 07/14/19 25 026 Active pantoprazole (Protonix) 40 MG EC tablet Take 1 tablet (40 mg) by mouth before breakfast and before evening meal. Do not crush, chew, or split. 60 tablet 3 09/05/19 25 026 Active pantoprazole (ProtoNix) 20 MG EC tabletIndication s:Gastroesophage al reflux disease without esophagitis Take 1 tablet (20 mg) by mouth before breakfast. Do not crush, chew, or split. 90 tablet 1 07/14/19 25 025 Discontinued Active Problems Problem Noted Date Diagnosed Date Elevated LFTs 07/14/2024 Assessment & Plan (07/14/2024 11:57 AM EST): Will be re-check on next appointments Thrombocytosis 12/03/2023 Assessment & Plan (12/03/2023 10:26 AM EDT): I notice chronic thrombocytosis this has being happening for more than a year I decided to refer him to hematology in light also of c/o epistaxis and chronic fatigue Leukocytosis 12/03/2023 Generalized abdominal pain 11/05/2023 Chronic bilateral low back pain without sciatica 04/23/2023 Assessment & Plan (04/23/2023 9:26 AM EDT): Apply heat on affected area Medications PRN if needed, I deputy general counsel about side effects including somnolence I advise not to drive Chronic bilateral thoracic back pain 04/23/2023 Anxiety disorder, unspecified 02/27/2023 Assessment & Plan (07/14/2024 11:56 AM EST): Counseling done today Assessment & Plan (04/28/2024 4:57 PM EDT): Counseling done Medication renewed I explain to patient not to stop taking his medication abruptly Assessment & Plan (12/03/2023 10:21 AM EDT): C/w fluoxetine 40mg daily Assessment & Plan (11/05/2023 12:15 PM EDT): I will increase his fluoxetine to 40mg daily RTC 4 weeks televisit Assessment & Plan (08/06/2023 5:37 PM EST): C/w fluoxetine 20mg daily Counseling done today Assessment & Plan (07/09/2023 2:31 PM EST): Multiple tests done for chest pain and burning sensation came back normal, most likely symptoms are trigger by anxiety BHN referral I will start fluoxetine 20mg RTC 4 weeks televisit Assessment & Plan (02/27/2023 8:36 AM EDT): Assessment: Patient with anxiousness, worrying, restlessness, headache when standing up, shortness of breathe, and mild fearfulness in the context of concerns regarding medical health. At this time patient declined OP therapy referral. At this time Jesika Rivero meets criteria for Visit Diagnoses: Problem List Items Addressed This Visit Other Anxiety disorder, unspecified Patient ready to address current needs Patient reports symptoms may be related to an underlying health condition Strengths include motivation to address occurring symptoms PLAN: 1. Follow up with [facility] [place]: Not recommended for follow-up 2. Patient goal is to have chest pain diminish 3. Behavioral Recommendations a. Patient will try techniques provided b. Patient will keep appointments with PCP and specialists c. Patient may reach out to speak with [facility], as needed Epigastric pain 01/08/2023 Assessment & Plan (12/03/2023 10:19 AM EDT): I advise patient to avoid NSAIDs, spicy and acid food, alcohol, I advise to eat at the same time every day, I advise to elevate the head of the bed and take medications as prescribe Assessment & Plan (01/08/2023 10:42 AM EDT): I advise patient to avoid NSAIDs, spicy and acid food, I advise to eat at the same time every day, I advise to elevate the head of the bed and take medications as prescribe Continue with omeprazole 40mg daily Do not miss GI appointment Prediabetes 01/08/2023 Assessment & Plan (07/14/2024 11:57 AM EST): Today extensive discussion was done about life style modifications I advise healthy diet (low calorie) and cardiovascular exercise Assessment & Plan (11/05/2023 12:15 PM EDT): Today extensive discussion was done about life style modifications I advise healthy diet (low calorie) and cardiovascular exercise Assessment & Plan (07/09/2023 2:29 PM EST): Today extensive discussion was done about life style modifications I advise healthy diet (low calorie) and cardiovascular exercise Assessment & Plan (01/08/2023 10:44 AM EDT): Today extensive discussion was done about life style modifications I advise healthy diet (low calorie) and cardiovascular exercise Chronic fatigue 11/24/2022 Assessment & Plan (12/03/2023 10:22 AM EDT): TSH will be repeated CBC will be repeated (leukocytosis and thrombocytosis previously) Assessment & Plan (11/24/2022 11:17 AM EDT): CASA? Patient already being follow by cardiology Blood work ordered Shortness of breath 11/24/2022 Assessment & Plan (01/08/2023 10:43 AM EDT): Awaiting for pulmonary function test and sleep studies Loud snoring 11/24/2022 Apneic episode 11/24/2022 Gastroesophageal reflux disease without esophagi tis 11/24/2022 Assessment & Plan (07/14/2024 11:56 AM EST): I advise patient to avoid NSAIDs, spicy and acid food, alcohol, I advise to eat at the same time every day, I advise to elevate the head of the bed and take medications as prescribe Assessment & Plan (04/28/2024 4:56 PM EDT): I advise patient to avoid NSAIDs, spicy and acid food, I advise to eat at the same time every day, I advise to elevate the head of the bed and take medications as prescribe Assessment & Plan (12/03/2023 10:21 AM EDT): I advise patient to avoid NSAIDs, spicy and acid food, I advise to eat at the same time every day, I advise to elevate the head of the bed and take medications as prescribe Assessment & Plan (04/23/2023 9:25 AM EDT): I advise patient to avoid NSAIDs, spicy and acid food, I advise to eat at the same time every day, I advise to elevate the head of the bed and take medications as prescribe Assessment & Plan (11/24/2022 11:16 AM EDT): I advise patient to avoid NSAIDs, spicy and acid food, I advise to eat at the same time every day, I advise to elevate the head of the bed and take medications as prescribe I increase omeprazole to 40mg daily Primary hypertension 08/28/2022 Assessment & Plan (07/14/2024 11:56 AM EST): It is likely now is under control I advise to monitor BP at home, low Na diet and weight reduction Assessment & Plan (04/28/2024 4:56 PM EDT): Elevated, patient has not take medication for weeks, I advise to make sure he has refills and take medication every day - Aerobic exercise to reduce BP. Initial goal of 30 min walk 3-5x/week. Increase as tolerated. - low-sodium diet (goal: <2g/day) and heart healthy diet such as DASH to reduce BP and prevent ASCVD. - Home BP monitoring 1-2 x day with goal of <140/90. - Seek immediate medical attention for chest pain, palpitations, SOB, syncope, or sudden changes in mental status. - Do not change or discontinue current prescriptions without first consulting health care provider Assessment & Plan (12/03/2023 10:20 AM EDT): I will change his medication, I discontinue lisinopril and put him on carvedilol 6.25mg BID I advise weight reduction and low Na diet Assessment & Plan (11/05/2023 12:15 PM EDT): - Aerobic exercise to reduce BP. Initial goal of 30 min walk 3-5x/week. Increase as tolerated. - low-sodium diet (goal: <2g/day) and heart healthy diet such as DASH to reduce BP and prevent ASCVD. - Home BP monitoring 1-2 x day with goal of <140/90. - Seek immediate medical attention for chest pain, palpitations, SOB, syncope, or sudden changes in mental status. - Do not change or discontinue current prescriptions without first consulting health care provider Assessment & Plan (08/06/2023 5:36 PM EST): - Aerobic exercise to reduce BP. Initial goal of 30 min walk 3-5x/week. Increase as tolerated. - low-sodium diet (goal: <2g/day) and heart healthy diet such as DASH to reduce BP and prevent ASCVD. - Home BP monitoring 1-2 x day with goal of <140/90. - Seek immediate medical attention for chest pain, palpitations, SOB, syncope, or sudden changes in mental status. - Do not change or discontinue current prescriptions without first consulting health care provider Assessment & Plan (07/09/2023 2:29 PM EST): -Blood pressure today elevated I increase his lisinopril to 20mg daily It was advise: - Aerobic exercise to reduce BP. Initial goal of 30 min walk 3-5x/week. Increase as tolerated. - low-sodium diet (goal: <2g/day) and heart healthy diet such as DASH to reduce BP and prevent ASCVD. - Home BP monitoring 1-2 x day with goal of <140/90. - Seek immediate medical attention for chest pain, palpitations, SOB, syncope, or sudden changes in mental status. - Do not change or discontinue current prescriptions without first consulting health care provider Assessment & Plan (04/23/2023 9:27 AM EDT): - Aerobic exercise to reduce BP. Initial goal of 30 min walk 3-5x/week. Increase as tolerated. - low-sodium diet (goal: <2g/day) and heart healthy diet such as DASH to reduce BP and prevent ASCVD. - Home BP monitoring 1-2 x day with goal of <140/90. - Seek immediate medical attention for chest pain, palpitations, SOB, syncope, or sudden changes in mental status. - Do not change or discontinue current prescriptions without first consulting health care provider Assessment & Plan (01/08/2023 10:43 AM EDT): - Aerobic exercise to reduce BP. Initial goal of 30 min walk 3-5x/week. Increase as tolerated. - low-sodium diet (goal: <2g/day) and heart healthy diet such as DASH to reduce BP and prevent ASCVD. - Home BP monitoring 1-2 x day with goal of <140/90. - Seek immediate medical attention for chest pain, palpitations, SOB, syncope, or sudden changes in mental status. - Do not change or discontinue current prescriptions without first consulting health care provider Assessment & Plan (11/24/2022 11:16 AM EDT): - Aerobic exercise to reduce BP. Initial goal of 30 min walk 3-5x/week. Increase as tolerated. - low-sodium diet (goal: <2g/day) and heart healthy diet such as DASH to reduce BP and prevent ASCVD. - Home BP monitoring 1-2 x day with goal of <140/90. - Seek immediate medical attention for chest pain, palpitations, SOB, syncope, or sudden changes in mental status. - Do not change or discontinue current prescriptions without first consulting health care provider Other hyperlipidemia 08/28/2022 Encounters Date Type Department Care Team Description 09/04/2024 10:20 AM EST Office Visit [facility] [address] [place] [phone] Livia Issa DO Melena (Primary Dx); Chronic GERD 07/14/2024 11:15 AM EST Telemedicine [facility] [address] [place] [address] Edith Shelley MD Prediabetes (Primary Dx); Primary hypertension; Anxiety disorder, unspecified type; Gastroesophageal reflux disease without esophagitis; Elevated LFTs 07/14/2024 Travel from Last 3 Months Immunizations Name Administration Dates Next Due Influenza injectable quadrivalent preservative f ree 07/09/2023 Influenza, seasonal, injectable, preservative fr ee 04/28/2024 Pfizer Covid-19 Vaccine 12+ 04/28/2024, Tdap 11/05/2023 Social History Tobacco Use Types Packs/Day Years Used Date Smoking Tobacco: Some Days Cigarettes Passive Smoke Exposure: Current Smokeless Tobacco: Never Tobacco Cessation:Ready to Q uit: Not Asked; Counseling Given: Not Answered Alcohol Use Standard Drinks/Week Comments Never 0 (1 standard drink = 0.6 oz pur e alcohol) Depression Answer Date Recorded Patient Health Questionnaire-9 Score 3 08/06/2023 Patient Health Questionnaire-9 Score 3 08/06/2023 Last PHQ-9: Questionnaire Data Not on file 0 08/06/2023 Housing Stability Answer Date Recorded What is your housing situation today? I have daniele gong 04/19/[address] you li ve. Do you have problems with any of the following? None of the above 04/19/2023 Food Insecurity Answer Date Recorded Within the past 12 months, y ou worried that your food would run out before you got money to buy more: Never True 04/19/2023 Within the past 12 months,th e food you bought just didn't last and you didn't have enough money to get more: Never True Transportation Answer Date Recorded In the past 12 months, has l ack of transportation kept you from medical appts, meetings, work or from getting things needed for daily living? No 04/19/2023 Utilities Answer Date Recorded In the past 12 months, has t he electric, gas, oil or water company threatened to shut off services in your home? No 04/19/2023 Depression Answer Date Recorded Patient Health Questionnaire-2 Score 3 08/06/2023 Sex and Gender Information Value Date Recorded Sex Assigned at Male 08/28/2022 12:55 PM EST Legal Sex Male 11:28 AM EST Gender Identity Male 08/28/2022 12:55 PM EST Sexual Orientation Don't know 08/28/2022 12 :55 PM EST Last Filed Vital Signs Vital Sign Reading Time Taken Comments Blood Pressure 132/86 09/04/2024 10:47 AM EST Pulse 82 09/04/2024 10:47 AM EST Temperature 37.1 ??C (98.7 ??F) 09/04/2024 10:[address] Respiratory Rate 20 09/04/2024 10:47 AM EST Oxygen Saturation 96% 04/28/2024 2:46 PM EDT Inhaled Oxygen Concentration - - Weight 94.2 kg (207 lb 9.6 oz) 09/04/2024 10:47 AM EST Height 162.6 cm (5' 4 ) 09/04/2024 10:47 AM EST Body Mass Index 35.63 09/04/2024 10:47 AM EST Plan of Treatment Upcoming Encounters Date Type Department Care Team (Late st Contact Info) Description 11/17/2024 9:45 AM EDT Office Visit [facility] [address] [place] [address] Edith Shelley MD [address] [place] [address] Health Maintenance Due Date Last Done Comments Dental Oral Exam 1989 Dental Prophylaxis 1989 Dental X-Ray: Bitewings 1989 Dental X-Ray: Full Mouth 1989 Alcohol/Substance Use Screening 2001 Family Planning (PISQ) 2004 Hepatitis B Vaccines (1 of 3 - 19+ 3-dose series) 2008 Pneumococcal Vaccine: Pediatrics (0 to 5 Years) and At-Risk Patients (6 to 49) Years) (1 of 2 - PCV) 2008 SDOH Screening 11/25/2023 11/24/2022 Depression Screening 08/06/2024 08/06/2023, 08/06/19 24 Diabetes: Hemoglobin A1C 09/04/2025 025, 05/05/2024, 07/09/2023, Additional history exists Tobacco Screening 09/04/2025 09/04/2024 Lipid Panel 05/05/2029 09/04/2024, 10/2023, 07/09/2023, Additional history exists DTaP/Tdap/Td Vaccines (2 - Td or Tdap) 11/04/2033 11/05/2023 Zoster Vaccines (1 of 2) 09/01/2039 RSV Patients and Patients Aged 60 years or older (1 - 1-dose 75+ series) 2064 COVID-19 Vaccine Completed 04/28/2024, 07/09/2023 Influenza Vaccine Completed 04/28/2024, 07/09/2023 HIV Screening Completed 05/05/2024, 08/31, 11/24/2022 Hepatitis C Screening Completed 05/05/2024 , 09/24/2023, 11/24/2022 HIB Vaccines Aged Out No longer eligi ble based on patient's age to complete this topic HPV Vaccines Aged Out No longer eligi ble based on patient's age to complete this topic Hepatitis A Vaccines Aged Out No long er eligible based on patient's age to complete this topic IPV Vaccines Aged Out No longer eligi ble based on patient's age to complete this topic Meningococcal Vaccine Aged Out No kayy garrison eligible based on patient's age to complete this topic RSV under 20 months Aged Out No longe r eligible based on patient's age to complete this topic Rotavirus Vaccines Aged Out No longer eligible based on patient's age to complete this topic Procedures Procedure Name Priority Date/Time Associated Diagnosis Comments HEMOGLOBIN A1C Routine 09/04/2024 11:36 AM EST Melena Chronic GERD HEPATIC FUNCTION PANEL Routine 09/04/2024 11:36 AM EST Melena Chronic GERD LIPID PANEL, STANDARD Routine 09/04/2024 11:36 AM EST Melena Chronic GERD BASIC METABOLIC PANEL Routine 09/04/2024 11:36 AM EST Primary hypertension CBC WITH AUTO DIFFERENTIAL Routine 09/04/2024 11:36 AM EST Chronic fatigue HEPATITIS C AB W/REFL TO HCV RNA, QN, PCR Routine 05/05/2024 8:15 AM EST Primary hypertension HIV 1/2 ANTIGEN/ANTIBODY, FOURTH GENERATION W/RFL Routine 05/05/2024 8:15 AM EST Primary hypertension from Last 3 Months or Most Recently Relevant to Health Maintenance Results * (ABNORMAL) CBC auto differential (09/04/2024 11:36 AM EST) White Blood Count 9.5 4.8 - 10.8 X10*3/uL [facility] Red Blood Count 5.12 4.60 - 5.80 X10*6/uL [facility] Hemoglobin 15.0 14.0 - 18.0 g/dl [facility] Hematocrit 43.5 42.0 - 52.0 % [facility] Mean Corpuscular Volume 85.0 80.0 - 98.0 fL [facility] Mean Corpuscular Hemoglobin 29.3 27.0 - 33.0 pg [facility] Mean Corpuscular HGB Conc 34.5 31.0 - 36.0 g/dl [facility] Red Cell Distribution Width 13.8 11.0 - 16.0 % [facility] Platelet Count 501(H) 160 - 400 X10*3/uL [facility] Mean Platelet Volume 9.4 9.4 - 12.4 fL [facility] Neutrophils Percent Auto 67.5 45 - 73 % [facility] Imm Gran Pct Auto 0.3 0.0 - 0.4 % [facility] Lymphocytes Percent Auto 25.0 20 - 40 % [facility] Monocytes Percent Auto 6.0 2 - 11 % [facility] Eosinophils Percent Auto 0.6 0 - 4 % [facility] Basophils Percent Auto 0.6 0 - 2 % [facility] NRBC Pct Auto 0.0 0.0 - 0.2 /100WBC [facility] Neutrophils Absolute Auto 6.4 2.0 - 8.3 x10*3/uL [facility] Imm Gran Abs Auto 0.03 0.00 - 0.03 X10*3/uL [facility] Lymphocytes Absolute Auto 2.4 1.2 - 4.9 X10*3/uL [facility] Monocytes Absolute Auto 0.6 0.1 - 1.2 X10*3/uL [facility] Eosinophils Absolute Auto 0.1 0.0 - 0.4 X10*3/uL [facility] Basophils Absolute Auto 0.1 0.0 - 0.2 X10*3/uL [facility] NRBC Abs Auto 0.000 0.0 - 0.012 X10*3/uL [facility] Blood Venous blood specimen / Unknown 09/04/2024 11:36 AM EST 09/04/2024 1:16 PM EST us Edith Whiteside MD LAB BLOOD ORDERABLES Final Result [facility] [address] [place] [phone] * Hemoglobin A1c (09/04/2024 11:36 AM EST) Hemoglobin A1c 5.6 <6.0 % [facility] Comment:Hemoglobin A1C Refer ence Range Adults: 4.8 - 6.0 % Non diabetic: < 6.0 % Goal: < 7.0 %Additional Action Suggested: > 8.0 %Note: Hemoglobin A1c results are invalid for patients with abnormal amounts of HbF. Blood transfusions may impact the HbA1c concentration in the patient sample. Estimated Average Glucose 114 mg/dL [facility] Comment:eAG = Estimated ave rage glucose which is %A1C expressed asaverage glucose, using the formula of the H2H-OiazbauKsolaep Glucose study (ADAG), Diabetes Care, Vol.31,#8,2007 Blood Venous blood specimen / Unknown 09/04/2024 11:36 AM EST 09/04/2024 1:16 PM EST us Livia Issa DO LAB BLOOD ORDERABLES Final R esult Performing Organization Address [facility]/ZIP Co de Phone Number [facility] [address] [place] [phone] * Hepatitis C Antibody with Reflex to HCV, RNA, Quantitative, Real-Time PCR (05/05/2024 8:15 AM EST) Hepatitis C Antibody Nonreactive Nonreactive [facility] Comment:Antibodies to HCV no t detected; does not exclude early acuteHCV infection. Blood Venous blood specimen / Unknown 05/05/2024 8:15 AM EST 05/05/2024 11:10 AM EST us Edith Whiteside MD LAB BLOOD ORDERABLES Final Result Performing Organization Address [facility] Co de Phone Number [facility] [address] [place] [phone] * HIV-1/2 Antigen and Antibodies, Fourth Generation, with Reflexes (05/05/2024 8:15 AM EST) HIV AB/AG Nonreactive Nonreactive [facility] Comment:HIV-1 p24 Ag and/or HIV-1/HIV-2 Ab not detected.A test result that is nonreactive does not exclude thepossibility of exposure to or infection with HIV-1 and/orHIV-2. Nonreactive results in this assay for individualswith prior exposure to HIV-1 and/or HIV-2 may be due toantigen and antibody levels that are below the limit ofdetection of this assay.The BrightergyniGrabCAD HIV Ag/Ab Combo assay result andsupplemental assay results should be interpreted inconjunction with the patient's clinical presentation,history and other laboratory results. If the results areinconsistent with clinical evidence, additional testing issuggested to confirm the result. Blood Venous blood specimen / Unknown 05/05/2024 8:15 AM EST 05/05/2024 11:10 AM EST us Edith Whiteside MD LAB BLOOD ORDERABLES Final Result [facility] [address] [place] [phone] from Last 3 Months or Most Recently Relevant to Health Maintenance Insurance [facility] [address] [facility]SN [facility] ADULT DENTAL - HSN FULL (MEDICAID) Care Teams Batch Tester Relationship Specialty Start Date End Date Edith Shelley MD [address] [place] [phone] PCP - General Internal Medicine 10/24/22
--- OUTSIDE RECORDS SUMMARY | 2024-09-04 14:12 | XMS_ITS | Encounter Summary ---
Author Organization [employer] Address [address] [place] [address] Care Team Providers Care Cray Fishing Hand Name Role Phone Edith Shelley MD Primary Care Provide r Reason for Visit * Reason Comments Med Refill Encounter Details Date Type Department Care Team (Late st Contact Info) Description 11/05/2023 Refill [facility] [address] [place] [address] Narciso Mooney FNP Primary hypertension Social History Tobacco Use Types Packs/Day Years Used Date Smoking Tobacco: Never Passive Smoke Exposure: Never Smokeless Tobacco: Never Alcohol Use Standard Drinks/Week Comments Never 0 [...] Don't know 08/28/2022 12 :55 PM EST documented as of this encounter Plan of Treatment Upcoming Encounters Date Type Department Care Team (Late st Contact Info) Description 11/17/2024 9:45 AM EDT Office Visit [facility] [address] [place] [address] Edith Shelley MD [address] [place] [address] documented as of this encounter Visit Diagnoses Diagnosis Primary hypertension Unspecified essential hypertension documented in this encounter Additional Health Concerns Assessment Noted Time PHQ-9 Depression Total Score: 3 08/06/19 24 11:22 AM EST documented as of this encounter Care Teams Cray Fishing Hand Relationship Specialty Start Date End Date Edith Shelley MD [address] [place] [address] PCP - General Internal Medicine 10/24/22 documented as of this encounter
--- OUTSIDE RECORDS SUMMARY | 2024-09-04 14:12 | XMS_ITS | Encounter Summary ---
Author Organization [facility] Address [address] [place] [address] Care Team Providers Care Warehouse Helper Name Role Phone Edith Shelley MD Primary Care Provider Encounter Details Date Type Department Care Team (Late st Contact Info) Description 09/15/2022 Orders Only [facility] Interventional Radiology [address] [place] [phone] Jacobo Smith MD [address] [place] [phone] Social History Tobacco Use Types Packs/Day Years Used Date Smoking Tobacco: Former Cigarettes Sex and Gender Information Value Date Recorded Sex Assigned at Not on file Legal Sex Male 9:06 AM EST Gender Identity Not on file Sexual Orientation Not on file documented as of this encounter Plan of Treatment Not on file documented as of this encounter Visit Diagnoses Not on filedocumented in this encounter Care Teams Warehouse Helper Relationship Specialty Start Date End Date Edith Shelley MD [address] [place] [phone] PCP - General Internal Medicine 04/20/23 documented as of this encounter
--- OUTSIDE RECORDS SUMMARY | 2024-09-04 14:12 | XMS_ITS | Encounter Summary ---
Author Organization [facility] Address [address] [place] [address] Care Team Providers Care Program Paraprofessional Name Role Phone Edith Shelley MD Primary Care Provide r Reason for Referral * Consultation (STAT) - Pending Review Specialty Diagnoses / Procedures Referred By Tawanda casas Referred To Contact Gastroenterology Diagnoses Lali Chronic GERD Livia Issa DO [address] [place] [address] Phone: tel: fax: Referral ID Status Reason Start Date Expiration Date Visits Requested Visits Authorized [id number] Pending Review Specialty Services Required 09/04/2024 09/04/2025 1 1 Encounter Details Date Type Department Care Team (Late st Contact Info) Description 09/04/2024 10:20 AM EST Office Visit [facility] [address] [place], [place] [phone] Livia Issa DO [address] [place] [address] Lali (Primary Dx); Chronic GERD Social History Tobacco Use Types Packs/Day Years [...] PM EST documented as of this encounter Last Filed Vital Signs Vital Sign Reading Time Taken Comments Blood Pressure 132/86 09/04/2024 10:47 AM EST Pulse 82 09/04/2024 10:47 AM EST Temperature 37.1 ??C (98.7 ??F) 09/04/2024 10:[address] Respiratory Rate 20 09/04/2024 10:47 AM EST Oxygen Saturation - - Inhaled Oxygen Concentration - - Weight 94.2 kg (207 lb 9.6 oz) 09/04/2024 10:47 AM EST Height 162.6 cm (5' 4 ) 09/04/2024 10:47 AM EST Body Mass Index 35.63 09/04/2024 10:47 AM EST documented in this encounter Progress Notes * Livia Issa, DO - 09/04/2024 10:20 AM EST SUBJECTIVE Jesika Rivero is a 34 y.o. male who presents for Sick Visit. He presents to [place] today c/o dark stools x 1 days. He says that yesterday he had multiple episodes of black stools. He says that today his stools are a little story editor and more green. He denies any bright red blood. He has never had black stools before. He denies any diarrhea or constipation. He says that last night he had some epigastric burning sensation. He says he frequently gets a bitter taste in his mouth. He denies any nausea or vomiting. He has GERD and is taking protonix daily. He was treated for H. Pylori in the past. His PCP sent him for repeat H. Pylori testing last year but he never went. He had a nml EGD at [facility] in Apr 2023. He has not had f/u with GI since then. He has never had a colonoscopy. 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 Respiratory: Negative for cough and chest tightness. Cardiovascular: Negative for chest pain and palpitations. Gastrointestinal: Positive for blood in stool and hematochezia. Negative for abdominal pain, diarrhea, nausea and vomiting. Neurological: Negative for dizziness, weakness and headaches. Patient Active Problem List Diagnosis Primary hypertension Other hyperlipidemia Chronic fatigue Shortness of breath Loud snoring Apneic episode Gastroesophageal reflux disease without esophagitis Epigastric pain Prediabetes Anxiety disorder, unspecified Chronic bilateral low back pain without sciatica Chronic bilateral thoracic back pain Generalized abdominal pain Thrombocytosis Leukocytosis Elevated LFTs No Known Allergies OBJECTIVE Visit Vitals BP 132/86 (BP Location: Left arm, Patient Position: Sitting, BP Cuff Size: Adult) Pulse 82 Temp 98.7 ??F (37.1 ??C) (Oral) Resp 20 Ht 5' 4 (1.626 m) Wt 207 lb 9.6 oz (94.2 kg) BMI 35.63 kg/m?? Smoking Status Some Days BSA 2.06 m?? Physical Exam Exam conducted with a field specialist present. Constitutional: General: He is not in acute distress. Appearance: Normal appearance. Cardiovascular: Rate and Rhythm: Normal rate and regular rhythm. Heart sounds: Normal heart sounds. No murmur heard. Pulmonary: Effort: Pulmonary effort is normal. Breath sounds: Normal breath sounds. No wheezing or rhonchi. Abdominal: General: Bowel sounds are normal. Palpations: Abdomen is soft. There is no mass. Tenderness: There is abdominal tenderness in the epigastric area. There is no right CVA tenderness,left CVA tenderness, guarding or rebound. Genitourinary: Rectum: Guaiac result positive. No external hemorrhoid. Neurological: General: No focal deficit present. Mental Status: He is alert and oriented to person, place, and time. Cranial Nerves: No cranial nerve deficit. Motor: No weakness. Gait: Gait normal. Psychiatric: Mood and Affect: Mood normal. Assessment/Plan Diagnoses and all orders for this visit: Chronic GERD Melena With new-onset black stools, GUAIAC positive, likely 2/2 peptic ulcer disease -increase protonix to 40 mg BID -check basic labs -check H. pylori stool Ag as previously advised -advised no NSAIDs -avoid triggering foods -referred to GI for STAT endoscopy -advised go to ED if any coffee ground emesis, hematemesis, or BRBPR, he agrees with plans --Follow-up with PCP as scheduled or sooner prn-- Current Outpatient Medications: carvedilol (Coreg) 6.25 MG tablet, Take 1 tablet (6.25 mg) by mouth with breakfast and with eveningmeal., Disp: 60 tablet, Rfl: 11 FLUoxetine (PROzac) 40 MG capsule, Take 1 capsule (40 mg) by mouth Once per day., Disp: 90 capsule,Rfl: 1 pantoprazole (Protonix) 40 MG EC tablet, Take 1 tablet (40 mg) by mouth before breakfast and beforeevening meal. Do not crush, chew, or split., Disp: 60 tablet, Rfl: 3 sodium chloride (Kirvin Nasal [place]) 0.65 % nasal spray, 1-2 sprays on each nostril every 2-3 hours as needed for nasal congestion, Disp: 30 mL, Rfl: 1 Scribe Attestation: Gabriel, Filipe Suh, am serving as a scribe to document services personally performed by Livia Alves, based on the patient's response to questions by provider and provider's statements to me. 09/04/24 11:35 AM Physicians Attestation: I, Livia Issa DO, have reviewed the information by the scribe, Filipe Suh, for accuracy and agree with its content. documented in this encounter Plan of Treatment Upcoming Encounters Date Type Department Care Team (Late st Contact Info) Description 11/17/2024 9:45 AM EDT Office Visit [facility] MED[facility] [address] [place] [address] Edith Shelley MD [address] [place] [address] Pending Results Name Type Priority Associated Diagnoses Date /Time Lipid Panel, Standard Lab Routine Melena Chronic GERD 09/04/2024 11:36 AM EST Hepatic Function Panel Lab Routine Melena Chronic GERD 09/04/2024 11:36 AM EST Scheduled Orders Name Type Priority Associated Diagnoses Orde r Schedule T4, Free Lab Routine Melena Chronic GERD Expected: 09/04/2024 (Approximate), Expires: 09/04/2025 TSH Lab Routine Melena Chronic GERD Expected: 09/04/2024 (Approximate), Expires: 09/04/2025 Vitamin D, 25-Hydroxy, Total, Immunoassay Lab Routine Melena Chronic GERD Expected: 09/04/2024 (Approximate), Expires: 09/04/2025 CBC Lab Routine Melena Chronic GERD Expected: 09/04/2024, Expires: 09/04/2025 Basic Metabolic Panel Lab Routine Melena Chronic GERD Expected: 09/04/2024 (Approximate), Expires: 09/04/2025 Helicobacter pylori??Antigen, EIA, Stool Lab Routine Melena Chronic GERD Expected: 09/04/2024, Expires: 09/04/2025 Scheduled Referrals Name Type Priority Associated Diagnoses Order Schedule Referral to Gastroenterology Outpatient Referral STAT Melena Chronic GERD Expected: 09/04/2024 (Approximate), Expires: 09/04/2025 documented as of this encounter Procedures Procedure Name Priority Date/Time Associated Diagnosis Comments HEMOGLOBIN A1C Routine 09/04/2024 11:36 AM EST Melena Chronic GERD HEPATIC FUNCTION PANEL Routine 09/04/2024 11:36 AM EST Melena Chronic GERD LIPID PANEL, STANDARD Routine 09/04/2024 11:36 AM EST Melena Chronic GERD documented in this encounter Results * Hemoglobin A1c (09/04/2024 11:36 AM EST) Hemoglobin A1c 5.6 <6.0 % [facility] Comment:Hemoglobin A1C Refer ence Range Adults: 4.8 - 6.0 % Non diabetic: < 6.0 % Goal: < 7.0 %Additional Action Suggested: > 8.0 %Note: Hemoglobin A1c results are invalid for patients with abnormal amounts of HbF. Blood transfusions may impact the HbA1c concentration in the patient sample. Estimated Average Glucose 114 mg/dL [facility] Comment:eAG = Estimated ave rage glucose which is %A1C expressed asaverage glucose, using the formula of the P2P-XlewnekFqmuulw Glucose study (ADAG), Diabetes Care, Vol.31,#8,Jan. 2007 Blood Venous blood specimen / Unknown 09/04/2024 11:36 AM EST 09/04/2024 1:16 PM EST us Livia Issa DO LAB BLOOD ORDERABLES Final R esult [facility] [address] [place] [phone] [phone] documented in this encounter Visit Diagnoses Diagnosis Melena- Primary Blood in stool Chronic GERD documented in this encounter Additional Health Concerns Assessment Noted Time PHQ-9 Depression Total Score: 3 08/06/19 24 11:22 AM EST documented as of this encounter Care Teams Program Paraprofessional Relationship Specialty Start Date End Date Edith Shelley MD [address] [place] [phone] PCP - General Internal Medicine 10/24/22 documented as of this encounter
[2024-09-04 14:13] LABS: Free T4 (Free Thyroxine) 1.05 ng/dL (0.71-1.85); Vitamin D 25-OH Total 19.4 ng/mL (>30)
[2024-09-04 14:22] LABS: TSH reflex Free T4 1.25 uIU/mL (0.32-4.0); Thyroid Stimulating Hormone 1.25 uIU/mL (0.32-4.0)
== END 2024-09-04 11:33 | disposition home or self-care (01) ==
LOC: HO.HHCL 11:32
PROVIDERS: Internal Medicine; Visit Provider Family Medicine
DX: K92.1 Melena (principal); K21.9 Gastro-esophageal reflux disease without esophagitis; I10 Essential (primary) hypertension; R53.82 Chronic fatigue, unspecified
CPT/HCPCS: 36415; 80048; 80061; 80076; 82306; 83036; 84439; 84443; 85025; 87338

== ENCOUNTER 2024-10-21 07:50 | Outpatient (REF) | payer MEDICAID, OTHER, SELFPAY ==
--- NOTE | ~2024-10-21 | US_ITS ---
CLINICAL HISTORY: elevated LFTs US abdomen complete Comparison: None Findings: Adherent echogenic foci along gallbladder wall. These are consistent with gallbladder polyps. Largest measures 9 mm. No stones or wall thickening noted. Common duct measures 3 mm. No sonographic Bullard sign. Fatty infiltration of the liver without focal abnormality. Main portal vein patent with normal direction of flow. Pancreas is unremarkable. Aorta and IVC patent and normal in caliber. The right kidney is normal, 11.5 cm in length. No focal abnormality or hydronephrosis. The left kidney is normal, 11.8 cm in length. No focal abnormality or hydronephrosis. The spleen is normal, 9.7 cm in length. No focal abnormality. Impression: Gallbladder polyps without stone or wall thickening Fatty infiltration of the liver This document has been electronically signed by: Benjy Jones MD on 10/21/2024 19:13:53
--- OUTSIDE RECORDS SUMMARY | 2024-10-21 07:53 | XMS_ITS | Referral Summary ---
Author Organization [facility] Address [address] [place] [address] Care Team Providers Care Needle Process Felt Goods Supervisor Name Role Phone Livia Issa Primary Care Provider +1- [phone] Encounters Date Type Department Care Team Description 09/08/2024 Telephone [facility] [address] [place] [address] Acetylene Torch Burner: Aleta Mtz Telephone Intake, Staff PAC Appt Request - Established; PAC Patient Request Call Back 09/08/2024 Transcribe Orders [facility] Physician Referral Services [address] [place] [address] Livia Issa (Primary Dx); Chronic GERD from Last 3 Months Allergies No known active allergies Medications hydroCHLOROthiazide [...] Sea Nasal 0.65 % nasal spray SMARTSI-2 [place](s) Both Nares Every 2-3 Hours 3 Active [...] with me. It can be with any [facility] GI physician so long as they can [...] might be to have him see a manager meeting) Social History Tobacco Use Types Packs/Day Years Used Date Smoking Tobacco: Former Cigarettes Smokeless Tobacco: Never Tobacco Cessation:Counseling Given: Not Answered Alcohol Use Standard Drinks/Week Comments Yes 0 (1 standard drink = 0.6 oz pur e alcohol) Social Sex and Gender Information Value Date Recorded Sex Assigned at Male 09/17/2024 9:52 AM EDT Legal Sex Male 9:06 AM EST Gender [...] Not on file Procedures * Due to [place] law, this organization might not be sharing negative HIV tests. Procedure Name Priority Date/Time Associated Diagnosis Comments BASIC METABOLIC PANEL Routine 09/13/2022 10:33 AM EDT Hyperlipidemia, unspecified hyperlipidemia type from Last 3 Months or Most Recently Relevant to Health Maintenance Results * Due to [place] law, this organization might not be sharing negative HIV tests. * (ABNORMAL) Basic metabolic panel (09/13/2022 10:33 AM EDT) NA 138 135 - 145 mmol/L 09/13/2022 11:24 AM EDT [facility] K 3.7 3.5 - 5.3 mmol/L 09/13/2022 11:24 AM EDT [facility] Cl 102 97 - 110 mmol/L 09/13/2022 11:24 AM EDT [facility] CO2 28 24 - 32 mmol/L 09/13/2022 11:24 AM EDT [facility] BUN 13 7 - 23 mg/dL 09/13/2022 11:24 AM EDT [facility] Creatinine 0.68 0.60 - 1.30 mg/dL 09/13/2022 11:24 AM EDT [facility] Glucose 108(H) 70 - 99 mg/dL 09/13/2022 11:24 AM EDT [facility] Calcium 10.0 8.7 - 10.7 mg/dL 09/13/2022 11:24 AM EDT [facility] Anion Gap 8 5 - 15 09/13/2022 11:24 AM EDT [facility] eGFR >90 >=90 mL/min/1. 73m2 09/13/2022 11:24 AM EDT [facility] Comment: Estimated Glomerular Filtration [...] MD LAB BLOOD ORDERABLES Final R esult [facility] [address] [place] [address], from Last 3 Months or Most Recently Relevant to Health Maintenance Insurance [place] Care Teams Needle Process Felt Goods Supervisor Relationship Specialty Start Date End Date Livia Issa [address] [place] [phone] PCP - General Family Medicine 09/17/24
--- OUTSIDE RECORDS SUMMARY | 2024-10-21 07:53 | XMS_ITS | Encounter Summary ---
Author Organization [facility] Address [address] [place] [address] Care Team Providers Care Cath Lab Radiological Technologist Name Role Phone Edith Shelley MD Primary Care Provide r Reason for Visit * Reason Comments Med Refill Encounter Details Date Type Department Care Team (Late st Contact Info) Description 11/05/2023 Refill [facility] [address] [place] [address] Narciso Mooney FNP Primary hypertension Social History [...] Description 11/17/2024 9:45 AM EDT Office Visit [facility] MEDIC[facility] [address] [place] [address] Edith hSelley MD [address] [place] [address] documented as of this encounter Visit Diagnoses Diagnosis Primary hypertension Unspecified essential hypertension documented in this encounter Additional Health Concerns Assessment Noted Time PHQ-9 Depression Total Score: 3 08/06/19 24 11:22 AM EST documented as of this encounter Care Teams Cath Lab Radiological Technologist Relationship Specialty Start Date End Date Edith Shelley MD [address] [place] [address] PCP - General Internal Medicine 10/24/22 documented as of this encounter
--- OUTSIDE RECORDS SUMMARY | 2024-10-21 07:53 | XMS_ITS | Encounter Summary ---
Author Organization [facility] Address [address] [place] [address] Care Team Providers Care Scow Hand Name Role Phone Livia Issa Primary Care Provider +1- [phone] Encounter Details Date Type Department Care Team (Late st Contact Info) Description 09/15/2022 Orders Only [facility] Interventional Radiology [address] [place] [phone] Jacobo Smith MD [address] [place] [phone] Social History Tobacco Use Types Packs/Day Years [...] on filedocumented in this encounter Care Teams Scow Hand Relationship Specialty Start Date End Date Livia Issa [address] [place] [phone] PCP - General Family Medicine 09/17/24 documented as of this encounter
--- OUTSIDE RECORDS SUMMARY | 2024-10-21 07:53 | XMS_ITS | Clinical Summary ---
Author Organization [facility] Address [address] [place] [address] Care Team Providers Care Solution Make Up Operator Name Role Phone Livia Issa Ondina Primary Care Provider +1- [phone] Allergies No known active allergies Medications hydroCHLOROthiazide [...] Sea Nasal 0.65 % nasal spray SMARTSI-2 [place](s) Both Nares Every 2-3 Hours 3 Active [...] with me. It can be with any [facility] GI physician so long as they can [...] might be to have him see a grocery store bagger) Encounters Date Type Department Care Team Description 09/08/2024 Telephone [facility] [address] [place] [address] Chair Spring Assembler: Aleta Mtz Telephone Intake, Staff PAC Appt Request - Established; PAC Patient Request Call Back 09/08/2024 Transcribe Orders [facility] Physician Referral Services [address] [place] [phone] Livia Issa (Primary Dx); Chronic GERD from Last 3 Months Social History Tobacco Use Types Packs/Day Years [...] (2 - 2023-2 5 season) 2024 07/09/2023 Alcohol/Substance Use Screening 07/02/2024 Depression Screening and Follow-Up 07/02/2024 Social Drivers of Health Annual Screening 07/02/2024 Influenza Vaccine (Season Ended) 2025 07/09/2023 DTaP,Tdap,and Td Vaccines (2 - Td or Tdap) 11/04/2033 11/05/2023 RSV Vaccine (60+ years old and patients) (1 - 1-dose 75+ series) 2064 HIV Screening Completed 11/24/2022, 11/24/2022 Pneumococcal Vaccine: Pediatric (0-5 Years) and At-Risk Patients (6-50 Years) Aged Out No longer eligible based on patient's age to complete this topic Procedures * Due to [place] law, this organization might not be sharing negative HIV tests. Procedure Name Priority Date/Time Associated Diagnosis Comments BASIC METABOLIC PANEL Routine 09/13/2022 10:33 AM EDT Hyperlipidemia, unspecified hyperlipidemia type from Last 3 Months or Most Recently Relevant to Health Maintenance Results * Due to [place] law, this organization might not be sharing negative HIV tests. * (ABNORMAL) Basic metabolic panel (09/13/2022 10:33 AM EDT) NA 138 135 - 145 mmol/L 09/13/2022 11:24 AM EDT [facility] K 3.7 3.5 - 5.3 mmol/L 09/13/2022 11:24 AM EDT [facility] Cl 102 97 - 110 mmol/L 09/13/2022 11:24 AM EDT [facility] CO2 28 24 - 32 mmol/L 09/13/2022 11:24 AM EDT [facility] BUN 13 7 - 23 mg/dL 09/13/2022 11:24 AM EDT [facility] Creatinine 0.68 0.60 - 1.30 mg/dL 09/13/2022 11:24 AM EDT [facility] Glucose 108(H) 70 - 99 mg/dL 09/13/2022 11:24 AM EDT [facility] Calcium 10.0 8.7 - 10.7 mg/dL 09/13/2022 11:24 AM EDT [facility] Anion Gap 8 5 - 15 09/13/2022 11:24 AM EDT [facility] eGFR >90 >=90 mL/min/1. 73m2 09/13/2022 11:24 AM EDT [facility] Comment: Estimated Glomerular Filtration [...] MD LAB BLOOD ORDERABLES Final R esult [facility] [address] [place] [address], [place] from Last 3 Months or Most Recently Relevant to Health Maintenance Insurance [place] Care Teams Solution Make Up Operator Relationship Specialty Start Date End Date Livia Issa [address] [place] [phone] PCP - General Family Medicine 09/17/24
--- OUTSIDE RECORDS SUMMARY | 2024-10-21 07:53 | XMS_ITS | Clinical Summary ---
Author Organization [employer] Address [address] [facility] [address] [place] [address] Care Team Providers Care Dental Billing Specialist Name Role Phone Edith Shelley MD Primary Care Provide r Allergies No known active allergies Medications * This document contains information received from the source organization and may not represent a complete record from that organization. sodium chloride ([place] Nasal Erwinna) 0.65 % nasal sprayIndications: Congestion of nasal sinus 1-2 sprays on each nostril every 2-3 hours as needed for nasal congestion 30 mL 1 4 Active carvedilol (Coreg) 6.25 MG tabletIndications :Primary hypertension Take 1 tablet (6.25 mg) by mouth with breakfast and with evening meal. 60 tablet 11 5 07/14/19 26 Active FLUoxetine (PROzac) 40 MG capsuleIndication s:Anxiety disorder, unspecified type Take 1 capsule (40 mg) by mouth Once per day. 90 capsule 1 5 07/14/19 26 Active pantoprazole (Protonix) 40 MG EC tablet Take 1 tablet (40 mg) by mouth before breakfast and before evening meal. Do not crush, chew, or split. 60 tablet 3 5 09/05/19 26 Active cholecalciferol (Vitamin D-3) 50 MCG (1999 UT) capsule Take 1 capsule (50 mcg) by mouth Once per day. 90 capsule 3 5 09/09/19 26 Active Active Problems Problem Noted Date Diagnosed [...] affected area Medications PRN if needed, I service counselor about side effects including somnolence I advise [...] occurring symptoms PLAN: 1. Follow up with [facility]: Not recommended for follow-up 2. Patient goal [...] Encounters Date Type Department Care Team Description 09/23/2024 Telephone [facility] [address] [place] [address] [phone] Edith Shelley MD Referral 09/22/2024 Telephone [facility] [address] [place] [address] [phone] Edith Shelley MD [facility] 09/08/2024 Orders Only [facility] [address] [place] [address] [phone] Livia Issa DO Elevated LFTs (Primary Dx) 09/05/2024 Refill [facility] [address] [place] [address] [phone] Livia Issa DO 09/04/2024 10:20 AM EST Office Visit [facility] [address] [place] [address] [phone] Livia Issa DO Melena (Primary Dx); Chronic GERD from Last 3 Months Immunizations Name Administration [...] Description 11/17/2024 9:45 AM EDT Office Visit [facility] [address] [place] [address] Edith Shelley MD [address] [place] [address] Health Maintenance Due Date Last Done Comments [...] exists Tobacco Screening 09/04/2025 09/04/2024 Lipid Panel 09/04/2029 09/04/2024, 11/0 10/2023, 07/09/2023, Additional history exists DTaP/Tdap/Td Vaccines [...] Procedure Name Priority Date/Time Associated Diagnosis Comments VITAMIN D,25-OH,TOTAL,IA Routine 09/04/2024 12:04 PM EST Melena Chronic GERD T4, FREE Routine 09/04/2024 12:04 PM EST Melena Chronic GERD HELICOBACTER PYLORI AG, EIA, STOOL Routine 09/04/2024 11:43 AM EST Melena Chronic GERD HEMOGLOBIN A1C Routine 09/04/2024 11:36 AM EST Melena Chronic GERD HEPATIC FUNCTION PANEL Routine 09/04/2024 11:36 AM EST Melena Chronic GERD TSH Routine 09/04/2024 11:36 AM EST Melena Chronic GERD LIPID PANEL, STANDARD Routine 09/04/2024 11:36 AM EST Melena Chronic GERD BASIC METABOLIC PANEL Routine 09/04/2024 11:36 AM EST Primary hypertension TSH W/REFLEX TO FT4 Routine 09/04/2024 1 1:36 AM EST Chronic fatigue CBC WITH AUTO DIFFERENTIAL Routine 09/04/2024 11:36 AM EST Chronic fatigue HEPATITIS C AB W/REFL TO HCV RNA, QN, PCR Routine 05/05/2024 8:15 AM EST Primary hypertension HIV 1/2 ANTIGEN/ANTIBODY, FOURTH GENERATION W/RFL Routine 05/05/2024 8:15 AM EST Primary hypertension from Last 3 Months or Most Recently Relevant to Health Maintenance Results * (ABNORMAL) Vitamin D, 25-Hydroxy, Total, Immunoassay (09/04/2024 12:04 PM EST) Vitamin D 25-OH Total 19.4(L) >30 ng/mL [facility] Comment:Health Based Referen ce Values*< 20 ng/mL Fbmtzohkc70-52 ng/mL Insufficient> 30 ng/mL Sufficient*Marlyn BRADEN. N Engl J Med. 2007;357:266-280Care must be taken in interpreting Vitamin D results fromdifferent laboratories and methodologies. Published datademonstrated that results from patients undergoinghemodialysis may show a negative bias when tested withvarious automated 25-OH vitamin D assays when compared toLC-MS/MS.When testing samples from patients whose predominant form ofVitamin D is Vitamin D2, such as patients receiving VitaminD2 supplementation, results that are subtherapeutic shouldbe confirmed with another method such as LC-MS/MS. Blood Venous blood specimen / Unknown 09/04/2024 12:04 PM EST 09/04/2024 1:16 PM EST Livia Issa DO LAB BLOOD ORDERABLES Final R esult [facility] [address] [place] [phone] * T4, Free (09/04/2024 12:04 PM EST) Free T4 (Free Thyroxine) 1.05 0.71 - 1.85 ng/dL [facility] Blood Venous blood specimen / Unknown 09/04/2024 12:04 PM EST 09/04/2024 1:16 PM EST Livia Issa DO LAB BLOOD ORDERABLES Final R esult Performing Organization Address City/[facility] Co de Phone Number [facility] [address] [place] [phone] * Helicobacter pylori??Antigen, EIA, Stool (09/04/2024 11:43 AM EST) H pylori Ag Stool SEE NOTE [facility] Comment:HELICOBACTER PYLORI AG, EIA, STOOL Micro Number: [id number] Test Status: Final Specimen Source: Stool Specimen Quality: Adequate H.pylori Ag: Not Detected Antimicrobials, proton pump inhibitors, and bismuth preparations inhibit H. pylori and ingestion up to two weeks prior to testing may cause false negative results. If clinically indicated the test should be repeated on a new specimen obtained two weeks after discontinuing treatment. Reference Range: Not DetectedTHIS TEST WAS PERFORMED AT:[facility] [place] [id number] SONG MD Stool Rectal contents / Unknown 09/04/2024 11:43 AM EST 09/04/2024 1:09 PM EST us Livia Issa DO LAB BODY FLUIDS AND STOOLS O RDERABLES Final Result Performing Organization Address [facility] Co de Phone Number [facility] [address] [place] [phone] * TSH with Reflex to Free T4 (09/04/2024 11:36 AM EST) TSH reflex Free T4 1.25 0.32 - 4.0 uIU/mL [facility] Blood 09/04/2024 11:3 6 AM EST 09/04/2024 1:16 PM EST us Edith Whiteside MD LAB BLOOD ORDERABLES Final Result Performing Organization Address [facility] Co de Phone Number [facility] [address] [place] [phone] * (ABNORMAL) CBC auto differential (09/04/2024 11:36 AM EST) White Blood Count 9.5 4.8 - 10.8 X10*3/uL [facility] Red Blood Count 5.12 4.60 - 5.80 X10*6/uL [facility] Hemoglobin 15.0 14.0 - 18.0 g/dl [facility] Hematocrit 43.5 42.0 - 52.0 % [facility] Mean Corpuscular Volume 85.0 80.0 - 98.0 fL [facility] Mean Corpuscular Hemoglobin 29.3 27.0 - 33.0 pg [facility] Mean Corpuscular HGB Conc 34.5 31.0 - 36.0 g/dl [facility] Red Cell Distribution Width 13.8 11.0 - 16.0 % [facility] Platelet Count 501(H) 160 - 400 X10*3/uL [facility] Mean Platelet Volume 9.4 9.4 - 12.4 fL [facility] Neutrophils Percent Auto 67.5 45 - 73 % [facility] Imm Gran Pct Auto 0.3 0.0 - 0.4 % [facility] Lymphocytes Percent Auto 25.0 20 - 40 % [facility] Monocytes Percent Auto 6.0 2 - 11 % [facility] Eosinophils Percent Auto 0.6 0 - 4 % [facility] Basophils Percent Auto 0.6 0 - 2 % [facility] NRBC Pct Auto 0.0 0.0 - 0.2 /100WBC [facility] Neutrophils Absolute Auto 6.4 2.0 - 8.3 x10*3/uL [facility] Imm Gran Abs Auto 0.03 0.00 - 0.03 X10*3/uL [facility] Lymphocytes Absolute Auto 2.4 1.2 - 4.9 X10*3/uL [facility] Monocytes Absolute Auto 0.6 0.1 - 1.2 X10*3/uL [facility] Eosinophils Absolute Auto 0.1 0.0 - 0.4 X10*3/uL [facility] Basophils Absolute Auto 0.1 0.0 - 0.2 X10*3/uL [facility] NRBC Abs Auto 0.000 0.0 - 0.012 X10*3/uL [facility] Blood Venous blood specimen / Unknown 09/04/2024 11:36 AM EST 09/04/2024 1:16 PM EST us Edith Whiteside MD LAB BLOOD ORDERABLES Final Result Performing Organization Address City/[facility]/ZIP Co de Phone Number [facility] [address] [place] [address] [phone] * TSH (09/04/2024 11:36 AM EST) Thyroid Stimulating Hormone 1.25 0.32 - 4.0 uIU/mL [facility] Comment:TSH 3rd Generation ( [facility]) Blood Venous blood specimen / Unknown 09/04/2024 11:36 AM EST 09/04/2024 1:16 PM EST us Livia Issa DO LAB BLOOD ORDERABLES Final R esult Performing Organization Address City/[facility] Co de Phone Number [facility] [address] [place] [address] [phone] * Hemoglobin A1c (09/04/2024 11:36 AM EST) Hemoglobin A1c 5.6 <6.0 % [facility] Comment:Hemoglobin A1C Refer ence Range Adults: 4.8 - 6.0 % Non diabetic: < 6.0 % Goal: < 7.0 %Additional Action Suggested: > 8.0 %Note: Hemoglobin A1c results are invalid for patients with abnormal amounts of HbF. Blood transfusions may impact the HbA1c concentration in the patient sample. Estimated Average Glucose 114 mg/dL [facility] Comment:eAG = Estimated ave rage glucose which is %A1C expressed asaverage glucose, using the formula of the B1E-XovgustTmrpsvg Glucose study (ADAG), Diabetes Care, Vol.31,#8,2007 Blood Venous blood specimen / Unknown 09/04/2024 11:36 AM EST 09/04/2024 1:16 PM EST us Livia Issa DO LAB BLOOD ORDERABLES Final R esult Performing Organization Address City/[facility]/ZIP Co de Phone Number [facility] [address] [place] [address] [phone] * (ABNORMAL) Hepatic Function Panel (09/04/2024 11:36 AM EST) Bilirubin, Total 1.4(H) 0.0 - 1.0 mg/dL [facility] Bilirubin, Direct 0.4 0.0 - 0.5 mg/dL [facility] Aspartate Amino Transferase 52(H) 5 - 37 U/L [facility] Alanine Aminotransferase 111(H) 0 - 40 U/L [facility] Total Protein 8.6(H) 6.5 - 8.0 g/dL [facility] Albumin Level 4.8 3.5 - 5.0 g/dL [facility] Alkaline Phosphatase 129(H) 39 - 117 U/L [facility] Blood Venous blood specimen / Unknown 09/04/2024 11:36 AM EST 09/04/2024 1:16 PM EST us Livia Issa DO LAB BLOOD ORDERABLES Final R esult Performing Organization Address City/[facility]/ZIP Co de Phone Number [facility] [address] [place] [address] [phone] * (ABNORMAL) Lipid Panel, Standard (09/04/2024 11:36 AM EST) Triglycerides 184(H) <150 mg/dL [facility] Comment:Desirable Triglyceri de: less than 150 mg/dLBorderline High Triglyceride 150-199 mg/dLHigh Triglyceride: 200-499 mg/dLVery High Triglyceride: greater than or equal to 5OO mg/dL Cholesterol 248(H) <200 mg/dL [facility] Comment:Desirable Cholestero l: less than 200 mg/dLBorderline High Cholesterol: 200-239 mg/dLHigh Cholesterol: greater than 239 mg/dL LDL Cholesterol Calculated 171(H) <100 mg/dL [facility] Comment:Desirable LDL: less than 100 mg/dLNear Optimal/Above Optimal LDL: 110- 129 mg/dLBorderline High LDL: 130-159 mg/dLHigh LDL: 160-189 mg/dLVery High LDL: greater than or equal to 190 mg/dL HDL Cholesterol 41 >40 mg/dL [facility] Comment:Desirable HDL: great er than 40 mg/dL Note: This HDL assay may give artificially low results in patients with liver disease. Blood Venous blood specimen / Unknown 09/04/2024 11:36 AM EST 09/04/2024 1:16 PM EST us Livia Issa DO LAB BLOOD ORDERABLES Final R esult [facility] [address] [place] [address] [phone] * Basic Metabolic Panel (09/04/2024 11:36 AM EST) Sodium 137 135 - 145 mmol/L [facility] Potassium 4.4 3.3 - 5.1 mmol/L [facility] Chloride 103 96 - 108 mmol/L [facility] Carbon Dioxide 25 22 - 29 mmol/L [facility] Anion Gap 13 12 - 20 [facility] Urea Nitrogen (BUN) 13 9 - 16 mg/dL [facility] Creatinine, Serum 0.77 0.5 - 1.4 mg/dL [facility] Estimated Glomerular Filt Rate >60 [facility] Comment:Chronic Kidney Disea se: Estimated GFR < 60 mL/min/1.41c1Flehev Kidney Disease: Estimated GFR < 15 mL/min/1.73m2 Glucose 106 60 - 115 mg/dL [facility] Calcium 10.0 8.4 - 10.2 mg/dL [facility] Blood Venous blood specimen / Unknown 09/04/2024 11:36 AM EST 09/04/2024 1:16 PM EST Edith Whiteside MD LAB BLOOD ORDERABLES Final Result Performing Organization Address [facility] Co de Phone Number [facility] [address] [place] [phone] * Hepatitis C Antibody with Reflex to HCV, RNA, Quantitative, Real-Time PCR (05/05/2024 8:15 AM EST) Hepatitis C Antibody Nonreactive Nonreactive [facility] Comment:Antibodies to HCV no t detected; does not exclude early acuteHCV infection. Blood Venous blood specimen / Unknown 05/05/2024 8:15 AM EST 05/05/2024 11:10 AM EST Edith Whiteside MD LAB BLOOD ORDERABLES Final Result Performing Organization Address [facility] Co de Phone Number [facility] [address] [place] [address] [phone] * HIV-1/2 Antigen and Antibodies, Fourth Generation, with Reflexes (05/05/2024 8:15 AM EST) Pathologist [facility] HIV AB/AG Nonreactive Nonreactive [facility] Comment:HIV-1 p24 Ag and/or HIV-1/HIV-2 Ab not detected.A test result that is nonreactive does not exclude thepossibility of exposure to or infection with HIV-1 and/orHIV-2. Nonreactive results in this assay for individualswith prior exposure to HIV-1 and/or HIV-2 may be due toantigen and antibody levels that are below the limit ofdetection of this assay.The [facility] HIV Ag/Ab Combo assay result andsupplemental assay results should be interpreted inconjunction with the patient's clinical presentation,history and other laboratory results. If the results areinconsistent with clinical evidence, additional testing issuggested to confirm the result. Blood Venous blood specimen / Unknown 05/05/2024 8:15 AM EST 05/05/2024 11:10 AM EST Edith Whiteside MD LAB BLOOD ORDERABLES Final Result [facility] [address] [place] [phone] from Last 3 Months or Most Recently Relevant to Health Maintenance [place] FULL (MEDICAID) Care Teams Dental Billing Specialist Relationship Specialty Start Date End Date Edith Shelley MD [address] [place] [phone] PCP - General Internal Medicine 10/24/22
== END 2024-10-21 07:51 | disposition home or self-care (01) ==
LOC: HO.US 07:50
PROVIDERS: PCP Internal Medicine; Visit Provider Family Medicine
DX: R79.89 Other specified abnormal findings of blood chemistry (principal)
CPT/HCPCS: 76700

== ENCOUNTER → 2024-10-21 07:51 | Outpatient (BNV) | payer SELFPAY | PROVIDERS: PCP Internal Medicine; Visit Provider Radiology Diagnostic Radiology | DX: R74.01 Elevation of levels of liver transaminase levels (principal) | CPT/HCPCS: 76700 ==

== ENCOUNTER 2024-11-17 10:15 | Outpatient (REF) | payer SELFPAY ==
--- OUTSIDE RECORDS SUMMARY | 2024-11-17 10:51 | XMS_ITS | Encounter Summary ---
Author Organization [employer] Address [address] [facility] [address] [place] [address] Care Team Providers Care Marketing Instructor Name Role Phone Edith Shelley MD Primary Care Provide r Reason for Referral * Consultation (Routine) - Authorized Specialty Diagnoses / Procedures Referred By Tawanda casas Referred To Contact Nutrition Diagnoses Weight gain Class 2 severe obesity due to excess calories with serious comorbidity and body mass index (BMI) of 36.0 to 36.9 in adult (CMS/HCC) Edith Shelley MD [address] [place] [address] Phone: tel: fax: Referral ID Status Reason Start Date Expiration Date Visits Requested Visits Authorized [id number] Authorized Consult and Treat 11/17/2024 11/17/2025 1 1 Encounter Details Date Type Department Care Team (Late st Contact Info) Description 11/17/2024 9:45 AM EDT Office Visit [facility] [address] [place], [place] [phone] Edith Shelley MD [address] [place], [place] [phone] Primary hypertension (Primary Dx); Weight gain; Class 2 severe obesity due to excess calories with serious comorbidity and body mass index (BMI) of 36.0 to 36.9 in adult (CMS/HCC); Epigastric pain; Encounter for immunization Social History Tobacco Use Types Packs/Day Years Used Date Smoking Tobacco: Some Days Cigarettes Passive Smoke Exposure: Current Smokeless Tobacco: Never Alcohol Use Standard Drinks/Week Comments Never 0 (1 standard drink = 0.6 oz pur e alcohol) Depression Answer Date Recorded Patient Health Questionnaire-9 Score 3 08/06/2023 Patient Health Questionnaire-9 Score 3 08/06/2023 Last PHQ-9: Questionnaire Data Not on file 0 08/06/2023 Housing Stability Answer Date Recorded What is your housing situation today? I have daniele gong 11/10/[address] you li ve. Do you have problems with any of the following? None of the above 11/10/2024 Food Insecurity Answer Date Recorded Within the past 12 months, y ou worried that your food would run out before you got money to buy more: Never True 11/10/2024 Within the past 12 months,th e food you bought just didn't last and you didn't have enough money to get more: Never True 06/2025 Transportation Answer Date Recorded In the past 12 months, has l ack of transportation kept you from medical appts, meetings, work or from getting things needed for daily living? No 11/10/2024 Utilities Answer Date Recorded In the past 12 months, has t he electric, gas, oil or water company threatened to shut off services in your home? No 11/10/2024 Depression Answer Date Recorded Patient Health Questionnaire-2 Score 3 08/06/2023 Internet Access Answer Date Recorded Internet Access Q1 No 11/10/2024 Internet Access Q2 I do not want or need it 10/30 Sex and Gender Information Value Date Recorded Sex Assigned at Male 08/28/2022 12:55 PM EST Legal Sex Male 11:28 AM EST Gender Identity Male 08/28/2022 12:55 PM EST Sexual Orientation Don't know 08/28/2022 12 :55 PM EST documented as of this encounter Last Filed Vital Signs Vital Sign Reading Time Taken Comments Blood Pressure 146/86 11/17/2024 10:00 AM EDT Pulse 73 11/17/2024 9:44 AM EDT Temperature 37 ??C (98.6 ??F) 11/17/2024 9:44 AM EDT Respiratory Rate 20 11/17/2024 9:44 AM EDT Oxygen Saturation - - Inhaled Oxygen Concentration - - Weight 98.8 kg (217 lb 12.8 oz) 11/17/2024 9:44 AM EDT Height 165 cm (5' 4.96 ) 11/17/2024 9:44 AM EDT Body Mass Index 36.29 11/17/2024 9:44 AM EDT documented in this encounter Functional Status * Over the last 2 weeks, how often have you been bothered by any of the following problems? Question Answer Date of Assessment Author Feeling nervous, anxious, or on edge 0 11/17/2024 9:45 AM EDT Tyesha Lopez MA Not being able to stop or co ntrol worrying 0 11/17/2024 9:45 AM EDT Tyesha Lopez MA Worrying too much about diff erent things 0 11/17/2024 9:45 AM EDT Tyesha Lopez MA Trouble relaxing 0 11/17/2024 9:45 AM EDT Tyesha Kaur MA Being so restless that it is hard to sit still 0 11/17/2024 9:45 AM EDT Tyesha Lopez MA Becoming easily annoyed or irritable 0 11/17/2024 9:45 AM EDT Tyesha Lopez MA Feeling afraid as if somethi ng awful might happen 0 11/17/2024 9:45 AM EDT Tyesha Lopez MA SANAM-7 Total Score 0 11/17/2024 9:45 AM MARYT Tyesha Lopez MA documented as of this encounter Plan of Treatment Scheduled Orders Name Type Priority Associated Diagnoses Orde r Schedule TSH W/Reflex to FT4 Lab Routine Weight gain Expected: 11/17/2024 (Approximate), Expires: 11/17/2025 Scheduled Referrals Name Type Priority Associated Diagnoses Orde r Schedule Referral to Nutrition Therapy Outpatient Referral Routine Weight gain Class 2 severe obesity due to excess calories with serious comorbidity and body mass index (BMI) of 36.0 to 36.9 in adult ([facility]) Expected: 11/17/2024 (Approximate), Expires: 11/17/2025 documented as of this encounter Visit Diagnoses Diagnosis Primary hypertension- Primary Unspecified essential hypertension Weight gain Other symptoms concerning nutrition, metabolism, and development Class 2 severe obesity due to excess calories with serious comorbidity and body mass index (BMI) of 36.0 to 36.9 in adult ([facility]) Epigastric pain Abdominal pain, epigastric Encounter for immunization documented in this encounter Additional Health Concerns Assessment Noted Time PHQ-9 Depression Total Score: 3 08/06/19 24 11:22 AM EST documented as of this encounter Care Teams Marketing Instructor Relationship Specialty Start Date End Date Edith Shelley MD [address] [place] [phone] PCP - General Internal Medicine 10/24/22 documented as of this encounter
--- OUTSIDE RECORDS SUMMARY | 2024-11-17 10:51 | XMS_ITS | Clinical Summary ---
Author Organization [facility] Address [address] [place] [address] Care Team Providers Care Gift Packer Name Role Phone Livia Issa Ondina Primary Care Provider [phone] Allergies No known active allergies Medications hydroCHLOROthiazide [...] Sea Nasal 0.65 % nasal spray SMARTSI-2 [place](s) Both Nares Every 2-3 Hours 3 Active carvediloL (COREG) 6.25 mg tabletIndications:H ypertension, unspecified type Take 1 tablet (6.25 mg total) by mouth 2 times a day with meals. 180 tablet 3 4 Active atorvastatin (LIPITOR) 20 mg tabletIndications:H yperlipidemia, unspecified hyperlipidemia type Take 1 tablet (20 mg total) by mouth once a day. 90 tablet 3 4 Active Active Problems Problem Noted Date Diagnosed [...] with me. It can be with any [facility] GI physician so long as they [...] might be to have him see a concrete craftsman) Encounters Date Type Department Care Team Description 09/08/2024 Telephone [facility] [address] [place] [phone] Garage Hand: Aleta Mtz Telephone Intake, Staff PAC Appt Request - Established; PAC Patient Request Call Back 09/08/2024 Transcribe Orders [facility] Referral Services [address] [place] [phone] Livia Issa (Primary Dx); Chronic GERD from [...] complete this topic Procedures * Due to [place] law, this organization might not be sharing negative HIV tests. Procedure Name Priority Date/Time Associated Diagnosis Comments BASIC METABOLIC PANEL Routine 09/13/2022 10:33 AM EDT Hyperlipidemia, unspecified hyperlipidemia type from Last 3 Months or Most Recently Relevant to Health Maintenance Results * Due to [place] law, this organization might not be sharing negative HIV tests. * (ABNORMAL) Basic metabolic panel (09/13/2022 10:33 AM EDT) NA 138 135 - 145 mmol/L 09/13/2022 11:24 AM EDT [facility] K 3.7 3.5 - 5.3 mmol/L 09/13/2022 11:24 AM EDT [facility] Cl 102 97 - 110 mmol/L 09/13/2022 11:24 AM EDT [facility] CO2 28 24 - 32 mmol/L 09/13/2022 11:24 AM EDT [facility] BUN 13 7 - 23 mg/dL 09/13/2022 11:24 AM EDT [facility] Creatinine 0.68 0.60 - 1.30 mg/dL 09/13/2022 11:24 AM EDT [facility] Glucose 108(H) 70 - 99 mg/dL 09/13/2022 11:24 AM EDT [facility] Calcium 10.0 8.7 - 10.7 mg/dL 09/13/2022 11:24 AM EDT [facility] Anion Gap 8 5 - 15 09/13/2022 11:24 AM EDT [facility] eGFR >90 >=90 mL/min/1. 73m2 09/13/2022 11:24 AM EDT [facility] Comment: Estimated Glomerular Filtration [...] MD LAB BLOOD ORDERABLES Final R esult [facility] [address] [place] [phone], from Last 3 Months or Most Recently Relevant to Health Maintenance Insurance [place] [place]/FREE CARE Care Teams Gift Packer Relationship Specialty Start Date End Date Livia Issa [address] [place] [phone] PCP - General Family Medicine 09/17/24
--- OUTSIDE RECORDS SUMMARY | 2024-11-17 10:51 | XMS_ITS | Clinical Summary ---
Author Organization [employer] Address [address] [facility] 7[address] [place] [address] Care Team Providers Care Hris Analyst Name Role Phone Edith Shelley MD Primary Care Provide r Allergies No known active allergies Medications * This document contains information received from the source organization and may not represent a complete record from that organization. sodium chloride ([place] Nasal [place]) 0.65 % nasal sprayIndications: Congestion of nasal [...] 90 capsule 3 5 09/09/19 26 Active aluminum-magnesiu m hydroxide 200-200 MG/5ML suspensionIndicat ions:Epigastric pain Take 10 mL by mouth every 6 (six) hours if needed for heartburn for up to 10 days. 355 mL 1 5 11/28/19 25 Active Active Problems Problem Noted Date Diagnosed Date Weight gain 11/17/2024 Class 2 severe obesity due t o excess calories with serious comorbidity and body mass index (BMI) of 36.0 to 36.9 in adult 11/17/2024 Elevated LFTs 07/14/2024 Assessment & Plan (07/14/2024 [...] affected area Medications PRN if needed, I nurses' association counselor about side effects including somnolence I [...] occurring symptoms PLAN: 1. Follow up with [facility]: Not recommended for follow-up 2. Patient goal [...] Encounters Date Type Department Care Team Description 11/17/2024 9:45 AM EDT Office Visit [address] [address] Edith Shelley MD Primary hypertension (Primary Dx); Weight gain; Class 2 severe obesity due to excess calories with serious comorbidity and body mass index (BMI) of 36.0 to 36.9 in adult (CMS/HCC); Epigastric pain; Encounter for immunization 11/17/2024 Travel 11/14/2024 Telephone [facility] [address] [place] [address] [phone] Edith Shelley MD Chart Prep 11/10/2024 Patient Outreach [address] [address] Edith Shelley MD Pre-visit Planning (SDOH screening negative and tobacco screening negative) 11/10/2024 Orders Only [address] [phone] Livia Issa DO Chronic GERD (Primary Dx); Melena; Gallbladder polyp 10/31/2024 Telephone [facility] [address] [place] [address] Edith Shelley MD Results 09/23/2024 Telephone [facility] [address] [place] [address] Edith Shelley MD Referral 09/22/2024 Telephone [facility] [address] [place] [address] Edith Shelley MD [facility] 09/08/2024 Orders Only [facility] [address] [place] [phone] Livia Issa DO Elevated LFTs (Primary Dx) 09/05/2024 Refill [facility] [address] [place] [address] Livia Issa DO 09/04/2024 10:20 AM EST Office Visit [facility] [address] [place] [address] Livia Issa DO Melena (Primary Dx); Chronic GERD from Last 3 Months Immunizations Immunization Administration Dates Next Due Influenza injectable quadrivalent preservative f ree 07/09/2023 Influenza, seasonal, injectable, preservative fr ee 04/28/2024 Pfizer Covid-19 Vaccine 12+ 04/28/2024, Pneumococcal Conjugate PCV 20 11/17/2024 Tdap 11/05/2023 Social History Tobacco Use Types [...] 20 11/17/2024 9:44 AM EDT Oxygen Saturation 96% 04/28/2024 2:46 PM EDT Inhaled Oxygen Concentration - - Weight 98.8 kg (217 lb 12.8 oz) 11/17/2024 9:44 AM EDT Height 165 cm (5' 4.96 ) 11/17/2024 9:44 AM EDT Body Mass Index 36.29 11/17/2024 9:44 AM EDT Plan of Treatment Health Maintenance Due Date Last Done Comments Dental Oral Exam 1989 Dental Prophylaxis 1989 Dental X-Ray: Bitewings 1989 Dental X-Ray: Full Mouth 1989 Alcohol/Substance Use Screening 2001 Family Planning (PISQ) 2004 Hepatitis B Vaccines (1 of 3 - 19+ 3-dose series) 2008 Depression Screening 08/06/2024 08/06/2023, 08/06/19 24 Diabetes: Hemoglobin A1C 09/04/2025 025, 05/05/2024, 07/09/2023, Additional history exists SDOH Screening 11/10/2025 11/10/2024 Disability Screening 11/17/2025 11/17/2024 Tobacco Screening 11/17/2025 11/17/2024 Lipid Panel 09/04/2029 09/04/2024, 10/2023, 07/09/2023, Additional history exists DTaP/Tdap/Td Vaccines (2 - Td or Tdap) 11/04/2033 11/05/2023 Zoster Vaccines (1 of 2) 09/01/2039 RSV Patients and Patients Aged 60 years or older (1 - 1-dose 75+ series) 2064 COVID-19 Vaccine Completed 04/28/2024, 07/09/2023 Influenza Vaccine Completed 04/28/2024, 07/09/2023 HIV Screening Completed 05/05/2024, 08/31, 11/24/2022 Hepatitis C Screening Completed 05/05/2024 , 09/24/2023, 11/24/2022 Pneumococcal Vaccine: Pediatrics (0 to 5 Years) and At-Risk Patients (6 to 49) Years) Completed 11/17/2024 HIB Vaccines Aged Out No longer eligi [...] patient's age to complete this topic Meningococcal B Vaccine Aged Out No l onger eligible based on patient's age to complete [...] Procedure Name Priority Date/Time Associated Diagnosis Comments US ABDOMEN COMPLETE Routine 10/21/2024 7 :13 PM EDT Elevated LFTs VITAMIN D,25-OH,TOTAL,IA Routine 09/04/2024 12:04 PM EST [...] Recently Relevant to Health Maintenance Results * US Abdomen Complete (10/21/2024 7:13 PM EDT) Anatomical Region Laterality Modality Abdomen Ultrasound 10/21/2024 7:13 PM EDT Narrative 10/21/2024 7:15 PM EDT ? [facility] ?[address] ?[place] [address] ? Ultrasound Report ? Signed ? Patient: Jesika Cordero ?MR#: ?? [id number] ? : 1990 ?Acct:[id number] ? Age/Sex: 34 / M ?ADM Date: 10/21/24 ? Loc: HO.US ? Attending Dr: Livia Issa DO ? Ordering Physician: Livia Issa DO ?? Date of Service: 10/21/24 ?? Procedure(s): US abdomen complete ?? Accession Number(s): [id number] ? cc: Edith Shelley MD; Livia Issa DO ? CLINICAL HISTORY: elevated LFTs ? US abdomen complete ? Comparison: None ? Findings: ? Adherent echogenic foci along gallbladder wall. ?? These are consistent with gallbladder polyps. ?? Largest measures 9 mm. ?? No stones or wall thickening noted. ?? Common duct measures 3 mm. ?? No sonographic Bullard sign. ? Fatty infiltration of the liver without focal abnormality. ?? Main portal vein patent with normal direction of flow. ?? Pancreas is unremarkable. ? Aorta and IVC patent and normal in caliber. ? The right kidney is normal, 11.5 cm in length. ?? No focal abnormality or hydronephrosis. ? The left kidney is normal, 11.8 cm in length. ?? No focal abnormality or hydronephrosis. ? The spleen is normal, 9.7 cm in length. ?? No focal abnormality. ? Impression: ? Gallbladder polyps without stone or wall thickening ? Fatty infiltration of the liver ? This document has been electronically signed by: Benjy Jones MD on ?? 10/21/2024 19:13:53 ? Dictated By: ?Benjy Jones MD ? Signed By: ?<Electronically signed by Benjy Jones MD in OV> ? 10/21/241914 ? DD/ 12 ? TD/TT: 10/21/241912 ? Global Sales Executive: ? Procedure Note Ulisses, Lisandra - 10/21/[address] [address] Ultrasound Report Signed Patient: Jacquelin Cordero#: [id number] : 1990Acct:[id number] Age/Sex: 34 / MADM Date: 10/21/24 Loc: HO.US Attending Dr: Livia Issa DO Ordering Physician: Livia Issa DO Date of Service: 10/21/24 Procedure(s): US abdomen complete Accession Number(s): [id number] cc: Edith Shelley MD; Livia Issa DO CLINICAL HISTORY: elevated LFTs US abdomen complete Comparison: None Findings: Adherent echogenic foci along gallbladder wall. These are consistent with gallbladder polyps. Largest measures 9 mm. No stones or wall thickening noted. Common duct measures 3 mm. No sonographic Bullard sign. Fatty infiltration of the liver without focal abnormality. Main portal vein patent with normal direction of flow. Pancreas is unremarkable. Aorta and IVC patent and normal in caliber. The right kidney is normal, 11.5 cm in length. No focal abnormality or hydronephrosis. The left kidney is normal, 11.8 cm in length. No focal abnormality or hydronephrosis. The spleen is normal, 9.7 cm in length. No focal abnormality. Impression: Gallbladder polyps without stone or wall thickening Fatty infiltration of the liver This document has been electronically signed by: Benjy Jones MD on 10/21/2024 19:13:53 Dictated By: Benjy Jones MD Signed By: <Electronically signed by Benjy Jones MD in OV> 10/21/241914 DD/ 12 TD/TT: 10/21/241912 Global Sales Executive: us Livia Issa DO IMG US PROCEDURES Final Resu lt * (ABNORMAL) Vitamin D, 25-Hydroxy, Total, Immunoassay (09/04/2024 12:04 PM EST) Vitamin D 25-OH Total 19.4(L) >30 ng/mL [facility] Comment:Health Based Referen ce Values*< 20 ng/mL Hsfxwrilh31-40 ng/mL Insufficient> 30 ng/mL Sufficient*Marlyn BRADEN. N [...] EST 09/04/2024 1:16 PM EST Livia Issa LAB BLOOD ORDERABLES Final R esult Performing Organization Address [facility]/ZIP Co de Phone Number [facility] [address] [place] [phone] * T4, Free (09/04/2024 12:04 PM EST) Free T4 (Free Thyroxine) 1.05 0.71 - 1.85 ng/dL [facility] Blood Venous blood specimen / Unknown 09/04/2024 12:04 PM EST 09/04/2024 1:16 PM EST [facility] BLOOD ORDERABLES Final R esult Performing Organization Address City/[facility]/ZIP Co de Phone Number [facility] [address] [place] [phone] * Helicobacter pylori??Antigen, EIA, Stool (09/04/2024 11:43 AM EST) H pylori Ag Stool SEE NOTE [facility] Comment:HELICOBACTER PYLORI AG, EIA, STOOL Micro Number: [id number] Test Status: Final Specimen Source: Stool Specimen Quality: Adequate H.pylori Ag: Not Detected Antimicrobials, proton pump inhibitors, and bismuth preparations inhibit H. pylori and ingestion up to two weeks prior to testing may cause false negative results. If clinically indicated the test should be repeated on a new specimen obtained two weeks after discontinuing treatment. Reference Range: Not DetectedTHIS TEST WAS PERFORMED AT:[employer] [place] [phone] SONG MD Stool Rectal contents / Unknown 09/04/2024 11:43 AM EST 09/04/2024 1:09 PM EST us Livia Issa DO LAB BODY FLUIDS AND STOOLS O RDERABLES Final Result Performing Organization Address [facility]/ZIP Co de Phone Number [facility] [address] [place] [phone] * TSH with Reflex to Free T4 (09/04/2024 11:36 AM EST) TSH reflex Free T4 1.25 0.32 - 4.0 uIU/mL [facility] Blood 09/04/2024 11:3 6 AM EST 09/04/2024 1:16 PM EST us Edith Whiteside MD LAB BLOOD ORDERABLES Final Result Performing Organization Address [facility]/ZIP Co de Phone Number [facility] [address] [place] [phone] * (ABNORMAL) CBC auto differential (09/04/2024 11:36 AM EST) White Blood Count 9.5 4.8 - 10.8 X10*3/uL [facility] Red Blood Count 5.12 4.60 - 5.80 X10*6/uL [facility] Hemoglobin 15.0 14.0 - 18.0 g/dl [facility] Hematocrit 43.5 42.0 - 52.0 % [facility] Mean Corpuscular Volume 85.0 80.0 - 98.0 fL [facility] Mean Corpuscular Hemoglobin 29.3 27.0 - 33.0 pg [facility] Mean Corpuscular HGB Conc 34.5 31.0 - 36.0 g/dl [facility] Red Cell Distribution Width 13.8 11.0 - 16.0 % [facility] Platelet Count 501(H) 160 - 400 X10*3/uL [facility] Mean Platelet Volume 9.4 9.4 - 12.4 fL [facility] Neutrophils Percent Auto 67.5 45 - 73 % [facility] Imm Gran Pct Auto 0.3 0.0 - 0.4 % [facility] Lymphocytes Percent Auto 25.0 20 - 40 % [facility] Monocytes Percent Auto 6.0 2 - 11 % [facility] Eosinophils Percent Auto 0.6 0 - 4 % [facility] Basophils Percent Auto 0.6 0 - 2 % [facility] NRBC Pct Auto 0.0 0.0 - 0.2 /100WBC [facility] Neutrophils Absolute Auto 6.4 2.0 - 8.3 x10*3/uL [facility] Imm Gran Abs Auto 0.03 0.00 - 0.03 X10*3/uL [facility] Lymphocytes Absolute Auto 2.4 1.2 - 4.9 X10*3/uL [facility] Monocytes Absolute Auto 0.6 0.1 - 1.2 X10*3/uL [facility] Eosinophils Absolute Auto 0.1 0.0 - 0.4 X10*3/uL [facility] Basophils Absolute Auto 0.1 0.0 - 0.2 X10*3/uL [facility] NRBC Abs Auto 0.000 0.0 - 0.012 X10*3/uL [facility] Blood Venous blood specimen / Unknown 09/04/2024 11:36 AM EST 09/04/2024 1:16 PM EST us Edith Whiteside MD LAB BLOOD ORDERABLES Final Result [facility] [address] [place] [phone] * TSH (09/04/2024 11:36 AM EST) Thyroid Stimulating Hormone 1.25 0.32 - 4.0 uIU/mL [facility] Comment:TSH 3rd Generation ( [facility]) Blood Venous blood specimen / Unknown 09/04/2024 11:36 AM EST 09/04/2024 1:16 PM EST Livia Issa DO LAB BLOOD ORDERABLES Final R esult Performing Organization Address [facility]/ZIP Co de Phone Number [facility] [address] [place] [phone] * Hemoglobin A1c (09/04/2024 11:36 AM EST) Hemoglobin A1c 5.6 <6.0 % [facility] Comment:Hemoglobin A1C Refer ence Range Adults: 4.8 - 6.0 % Non diabetic: < 6.0 % Goal: < 7.0 %Additional Action Suggested: > 8.0 %Note: Hemoglobin A1c results are invalid for patients with abnormal amounts of HbF. Blood transfusions may impact the HbA1c concentration in the patient sample. Estimated Average Glucose 114 mg/dL [facility] Comment:eAG = Estimated ave rage glucose which is %A1C expressed asaverage glucose, using the formula of the M5E-WpxnlawNypguzi Glucose study (ADAG), Diabetes Care, Vol.31,#8,Jan. 2007 Blood Venous blood specimen / Unknown 09/04/2024 11:36 AM EST 09/04/2024 1:16 PM EST us Livia Issa DO LAB BLOOD ORDERABLES Final R esult Performing Organization Address [facility]/ZIP Co de Phone Number [facility] [address] [place] [phone] * (ABNORMAL) Hepatic Function Panel (09/04/2024 11:36 AM EST) Bilirubin, Total 1.4(H) 0.0 - 1.0 mg/dL [facility] Bilirubin, Direct 0.4 0.0 - 0.5 mg/dL [facility] Aspartate Amino Transferase 52(H) 5 - 37 U/L [facility] Alanine Aminotransferase 111(H) 0 - 40 U/L [facility] Total Protein 8.6(H) 6.5 - 8.0 g/dL [facility] Albumin Level 4.8 3.5 - 5.0 g/dL [facility] Alkaline Phosphatase 129(H) 39 - 117 U/L [facility] Blood Venous blood specimen / Unknown 09/04/2024 11:36 AM EST 09/04/2024 1:16 PM EST us Livia Issa DO LAB BLOOD ORDERABLES Final R esult [facility] [address] [place] [phone] * (ABNORMAL) Lipid Panel, Standard (09/04/2024 11:36 AM EST) Triglycerides 184(H) <150 mg/dL [facility] Comment:Desirable Triglyceri de: less than 150 mg/dLBorderline High Triglyceride 150-199 mg/dLHigh Triglyceride: 200-499 mg/dLVery High Triglyceride: greater than or equal to 5OO mg/dL Cholesterol 248(H) <200 mg/dL [facility] Comment:Desirable Cholestero l: less than 200 mg/dLBorderline High Cholesterol: 200-239 mg/dLHigh Cholesterol: greater than 239 mg/dL LDL Cholesterol Calculated 171(H) <100 mg/dL [facility] Comment:Desirable LDL: less than 100 mg/dLNear Optimal/Above Optimal LDL: 110- 129 mg/dLBorderline High LDL: 130-159 mg/dLHigh LDL: 160-189 mg/dLVery High LDL: greater than or equal to 190 mg/dL HDL Cholesterol 41 >40 mg/dL [facility] Comment:Desirable HDL: great er than 40 mg/dL Note: This HDL assay may give artificially low results in patients with liver disease. Blood Venous blood specimen / Unknown 09/04/2024 11:36 AM EST 09/04/2024 1:16 PM EST us Livia Issa DO LAB BLOOD ORDERABLES Final R esult Performing Organization Address City/[facility]/ZIP Co de Phone Number [facility] [address] [place] [phone] * Basic Metabolic Panel (09/04/2024 11:36 AM EST) Pathologist [facility] Sodium 137 135 - 145 mmol/L [facility] Potassium 4.4 3.3 - 5.1 mmol/L [facility] Chloride 103 96 - 108 mmol/L [facility] Carbon Dioxide 25 22 - 29 mmol/L [facility] Anion Gap 13 12 - 20 [facility] Urea Nitrogen (BUN) 13 9 - 16 mg/dL [facility] Creatinine, Serum 0.77 0.5 - 1.4 mg/dL [facility] Estimated Glomerular Filt Rate >60 [facility] Comment:Chronic Kidney Disea se: Estimated GFR < 60 mL/min/1.93h6Hoylaj Kidney Disease: Estimated GFR < 15 mL/min/1.73m2 Glucose 106 60 - 115 mg/dL [facility] Calcium 10.0 8.4 - 10.2 mg/dL [facility] Blood Venous blood specimen / Unknown 09/04/2024 11:36 AM EST 09/04/2024 1:16 PM EST us Edith Whiteside MD LAB BLOOD ORDERABLES Final Result Performing Organization Address City/[facility]/ZIP Co de Phone Number [facility] [address] [place] [phone] * Hepatitis C Antibody with Reflex to HCV, RNA, Quantitative, Real-Time PCR (05/05/2024 8:15 AM EST) Hepatitis C Antibody Nonreactive Nonreactive [facility] Comment:Antibodies to HCV no t detected; does not exclude early acuteHCV infection. Blood Venous blood specimen / Unknown 05/05/2024 8:15 AM EST 05/05/2024 11:10 AM EST us Edith Whiteside MD LAB BLOOD ORDERABLES Final Result Performing Organization Address City/[facility]/ZIP Co de Phone Number [facility] [address] [place] [phone] * HIV-1/2 Antigen and Antibodies, Fourth Generation, with Reflexes (05/05/2024 8:15 AM EST) [facility] HIV AB/AG Nonreactive Nonreactive [facility] Comment:HIV-1 p24 Ag and/or HIV-1/HIV-2 Ab not detected.A test result that is nonreactive does not exclude thepossibility of exposure to or infection with HIV-1 and/orHIV-2. Nonreactive results in this assay for individualswith prior exposure to HIV-1 and/or HIV-2 may be due toantigen and antibody levels that are below the limit ofdetection of this assay.The MiregoniOrad HIV Ag/Ab Combo assay result andsupplemental assay results should be interpreted inconjunction with the patient's clinical presentation,history and other laboratory results. If the results areinconsistent with clinical evidence, additional testing issuggested to confirm the result. Blood Venous blood specimen / Unknown 05/05/2024 8:15 AM EST 05/05/2024 11:10 AM EST us Edith Whiteside MD LAB BLOOD ORDERABLES Final Result Performing Organization Address City/[facility]/ZIP Co de Phone Number [facility] [address] [place] [phone] from Last 3 Months or Most Recently Relevant to Health Maintenance Insurance [place]-[facility] MEDICAID LIMITED ADULT DENTAL - HSN FULL (MEDICAID) Care Teams Hris Analyst Relationship Specialty Start Date End Date Edith Shelley MD [address] [place] [phone] PCP - General Internal Medicine 10/24/22
--- OUTSIDE RECORDS SUMMARY | 2024-11-17 10:51 | XMS_ITS | Encounter Summary ---
Author Organization [employer] Address [address] [place] [address] Care Team Providers Care Resort Housekeeper Name Role Phone Edith Shelley MD Primary Care Provide r Reason for Visit * Reason Comments Med Refill Encounter Details Date Type Department Care Team (Late st Contact Info) Description 11/05/2023 Refill [facility] [address] [place] [address] Narciso Mooney FNP Primary hypertension Social History [...] documented as of this encounter Care Teams Resort Housekeeper Relationship Specialty Start Date End Date Edith Shelley MD [address] [place] [phone] PCP - General Internal Medicine 10/24/22 documented as of this encounter
--- OUTSIDE RECORDS SUMMARY | 2024-11-17 10:51 | XMS_ITS | Encounter Summary ---
Author Organization [employer] Address [address] [place] [address] Care Team Providers Care Roofing Contractor Name Role Phone Edith Shelley MD Primary Care Provide r Encounter Details Date Type Department Care Team (Latest Contact Info) Description 11/17/2024 Travel Social History Tobacco Use Types Packs/Day Years [...] your housing situation today? I have daniele farideh 11/10/[address] you li [...] PM EST documented as of this encounter Functional Status * Over the [...] SANAM-7 Total Score 0 11/17/2024 9:45 AM Tyesha Thao [place] documented as of this encounter Plan of Treatment Not on file documented as of this encounter Visit Diagnoses Not on filedocumented in this encounter Additional Health Concerns Assessment Noted Time PHQ-9 Depression Total Score: 3 08/06/19 24 11:22 AM EST documented as of this encounter Care Teams Roofing Contractor Relationship Specialty Start Date End Date Edith Shelley MD [address] [place] [address] PCP - General Internal Medicine 10/24/22 documented as of this encounter
--- OUTSIDE RECORDS SUMMARY | 2024-11-17 10:51 | XMS_ITS | Referral Summary ---
Author Organization [facility] Address [address] [place] [address] Care Team Providers Care Sensor Technician Name Role Phone Livia Issa Primary Care Provider [phone]- [phone] Encounters Date Type Department Care Team Description 09/08/2024 Telephone [facility] [address] [place] [address] Operator Supply: Aleta tMz Telephone Intake, Staff PAC Appt Request - Established; PAC Patient Request Call Back 09/08/2024 Transcribe Orders [facility] [address] [place] [address] Livia Issa (Primary Dx); Chronic GERD from [...] Sea Nasal 0.65 % nasal spray SMARTSI-2 [place](s) Both Nares Every 2-3 Hours 3 Active [...] might be to have him see a l d rn) Social History Tobacco Use Types Packs/Day Years [...] Not on file Procedures * Due to [place] [employer] law, this organization might not be sharing negative HIV tests. Procedure Name Priority Date/Time Associated Diagnosis Comments BASIC METABOLIC PANEL Routine 09/13/2022 10:33 AM EDT Hyperlipidemia, unspecified hyperlipidemia type from Last 3 Months or Most Recently Relevant to Health Maintenance Results * Due to [place] [employer] law, this organization might not be sharing negative HIV tests. * (ABNORMAL) Basic metabolic panel (09/13/2022 10:33 AM EDT) NA 138 135 - 145 mmol/L 09/13/2022 11:24 AM EDT [facility] K 3.7 3.5 - 5.3 mmol/L 09/13/2022 11:24 AM EDT [facility] Cl 102 97 - 110 mmol/L 09/13/2022 11:24 AM EDT [facility] CO2 28 24 - 32 mmol/L 09/13/2022 11:24 AM EDT [facility] BUN 13 7 - 23 mg/dL 09/13/2022 11:24 AM EDT [facility] Creatinine 0.68 0.60 - 1.30 mg/dL 09/13/2022 11:24 AM EDT [facility] Glucose 108(H) 70 - 99 mg/dL 09/13/2022 11:24 AM EDT [facility] Calcium 10.0 8.7 - 10.7 mg/dL 09/13/2022 11:24 AM EDT [facility] Anion Gap 8 5 - 15 09/13/2022 11:24 AM EDT [facility] eGFR >90 >=90 mL/min/1. 73m2 09/13/2022 11:24 AM EDT [facility] Comment: Estimated Glomerular Filtration [...] MD LAB BLOOD ORDERABLES Final R [email or web address] [address] [place] [address], [place] from Last 3 Months or Most Recently Relevant to Health Maintenance Insurance [place] Care Teams Sensor Technician Relationship Specialty Start Date End Date Livia Issa [address] [place] [phone] PCP - General Family Medicine 09/17/24
--- OUTSIDE RECORDS SUMMARY | 2024-11-17 10:51 | XMS_ITS | Encounter Summary ---
Author Organization [employer] Address [address] [place] [address] Care Team Providers Care Resident Care Aide Name Role Phone Edith Shelley MD Primary Care Provide r Reason for Visit * Reason Onset Date Comments Chart Prep 11/14/2024 Encounter Details Date Type Department Care Team ([facility] st Contact Info) Description 11/14/2024 Telephone [facility] MEDICINE [address] [place], [place] [phone] Edith Shelley MD [address] [place], [place] [phone] Chart Prep Social History Tobacco Use Types Packs/Day Years [...] PM EST documented as of this encounter Miscellaneous Notes * Telephone Encounter - Aurea Vergara [place] - 11/14/2024 8:20 AM EDT Chart Prep Labs: done Images: done US Abdomen Report-10/21/24([facility]) Referrals: appointment pending [facility] Gastro and General Surgery Vaccines due: PCV20 and Hep B Screenings: LMP Overdue care gaps: SBIRT, PHQ-9, SANAM-7, and Disability screen documented in this encounter Plan of Treatment Not on file documented as of this encounter Visit Diagnoses Not on filedocumented in this encounter Additional Health Concerns Assessment Noted Time PHQ-9 Depression Total Score: 3 08/06/19 24 11:22 AM EST documented as of this encounter Care Teams Resident Care Aide Relationship Specialty Start Date End Date Edith Shelley MD [address] [place] [address] PCP - General Internal Medicine 10/24/22 documented as of this encounter
--- OUTSIDE RECORDS SUMMARY | 2024-11-17 10:52 | XMS_ITS | Encounter Summary ---
Author Organization [facility] Address [address] [place] [address] Care Team Providers Care Junior Graphic Designer Name Role Phone Livia Issa Primary Care Provider +1- [phone] Encounter Details Date Type Department Care Team (Late st Contact Info) Description 09/15/2022 Orders Only [facility] Interventional Radiology [address] [place] [phone] Jacobo Smith MD [address] [place] [phone] Social History Tobacco Use Types Packs/Day Years [...] on filedocumented in this encounter Care Teams Junior Graphic Designer Relationship Specialty Start Date End Date Livia Issa [address] [place] [phone] PCP - General Family Medicine 09/17/24 documented as of this encounter
[2024-11-17 11:51] LABS: Anion Gap 13 (12-20); Blood Urea Nitrogen 7 mg/dL (9-16); Calcium 9.6 mg/dL (8.4-10.2); Carbon Dioxide 25 mmol/L (22-29); Chloride 104 mmol/L (96-108); Estimated Glomerular Filt Rate > 60; Glucose Random 112 mg/dL (60-115); Potassium 4.1 mmol/L (3.3-5.1); Sodium 138 mmol/L (135-145)
[2024-11-17 12:00] LABS: TSH reflex Free T4 1.47 uIU/mL (0.32-4.0)
== END 2024-11-17 10:16 | disposition home or self-care (01) ==
LOC: HO.HHCL 10:15
PROVIDERS: Visit Provider Internal Medicine
DX: R63.5 Abnormal weight gain (principal); K92.1 Melena; K21.9 Gastro-esophageal reflux disease without esophagitis
CPT/HCPCS: 36415; 80048; 84443

== ENCOUNTER 2024-12-29 11:09 | Outpatient (REF) | payer SELFPAY ==
--- NOTE | ~2024-12-29 | XR_ITS ---
EXAMINATION: XR CHEST CLINICAL INFORMATION: chest burning sensation across chest, SOB COMPARISON: Considering 19/11/2023 TECHNIQUE: Chest burning sensation, shortness of breath FINDINGS: Heart and mediastinal contours are within normal limits. The lungs are clear and well expanded. Pulmonary vasculature is distinct. There is no pleural effusion. XR/XR chest 2V IMPRESSION: No acute disease Electronically signed by: Catrachito Hawkins MD 12/29/2024 11:39 AM EDT
--- OUTSIDE RECORDS SUMMARY | 2024-12-29 12:02 | XMS_ITS | Clinical Summary ---
Author Organization [facility] Address [address] [place] [address] Care Team Providers Care Acetylene Gas Compressor Name Role Phone Edith Shelley MD Primary [...] Sea Nasal 0.65 % nasal spray SMARTSI-2 [place](s) Both Nares Every 2-3 Hours 3 Active [...] Active Problems Problem Noted Date Diagnosed Date Leukocytosis 12/03/2023 Thrombocytosis 12/03/2023 Heartburn 01/23/2023 Assessment & Plan (01/23/2023 9:53 [...] with me. It can be with any [facility] GI physician so long as they can [...] might be to have him see a supervisor paste mixing) Apneic episode 11/24/2022 Chronic fatigue 11/24/2022 Encounters Date Type Department Care Team Description 12/29/2024 Refill [facility] 4th floor Cardiology Medicine [address] [place] [address] Volumetric Weigher: Martinez Neves MD Hyperlipidemia, unspecified hyperlipidemia type 11/28/2024 Telephone [facility] General Surgery [address] [place] [address] Telephone Intake, Staff PAC Appt Request - New 11/28/2024 Transcribe Orders [facility] Physician Referral Services [address] [place] [address] Livia Issa Gallbladder polyp (Primary Dx) from Last 3 Months Social History Tobacco [...] 70 04/20/2023 10:14 AM EDT Temperature 36.3 C (97.3 F) 04/20/2023 9:30 AM EDT Respiratory Rate 16 04/20/2023 10:14 AM EDT Oxygen Saturation 100% 04/20/2023 10:14 AM EDT Inhaled Oxygen Concentration - - Weight 88.5 kg (195 lb) 04/20/2023 8:07 AM EDT Height 165.1 cm (5' 5 ) 04/20/2023 8:07 AM EDT Body Mass Index 32.45 04/20/2023 8:07 AM EDT Plan of Treatment Upcoming Encounters Date Type Department Care Team (Latest Contact Info) Description 01/06/2025 1:30 PM EDT Office Visit [facility] [address] [place] [address] Volumetric Weigher: Sunday Waterman Jr., MD [address] [place] [address] 02/12/2025 12:30 PM EDT Hospital Encounter [address] [address] Ciaran Campbell MD [address] [place] [address] 02/12/2025 12:30 PM EDT - 02/12/2025 1:15 PM EDT Surgery [address] [facility] [address] [place] [phone] Ciaran Campbell MD [address] [place] [phone] UPPER ENDOSCOPY; DIAGNOSTIC WITH BRUSH/WASH (SP) WITH POSSIBLE MODERATE SEDATION [17814 (CPT )] Scheduled Procedures Name Priority Associated Diagnoses Date/Ti me UPPER ENDOSCOPY; DIAGNOSTIC WITH BRUSH/WASH (SP) WITH POSSIBLE MODERATE SEDATION Chronic GERD Rectal bleeding 02/12/2025 12:30 PM EDT COLONOSCOPY, DIAGNOSTIC, WITH POSSIBLE MODERATE SEDATION Chronic GERD Rectal bleeding 02/12/2025 12:30 PM EDT Health Maintenance Due Date Last Done Comments Varicella Vaccines (1 of 2 - 13+ 2-dose series) 2002 Hepatitis B Vaccines (1 of 3 - 19+ 3-dose series) 2008 Alcohol/Substance Use Screening 07/02/2024 Depression Screening and Follow-Up 07/02/2024 Social Drivers of Health Annual Screening 07/02/2024 DTaP,Tdap,and Td Vaccines (2 - Td or Tdap) 11/04/2033 11/05/2023 RSV Vaccine (60+ years old and patients) (1 - 1-dose 75+ series) 2064 COVID-19 Vaccine Completed 04/28/2024, 07/09/2023 Influenza Vaccine Completed 04/28/2024, 07/09/2023 HIV Screening Completed 05/05/2024, 1110/2023, 09/24/2023, Additional history exists Hepatitis C Screening Completed 05/05/2024 Pneumococcal Vaccine: Pediatric (0-5 Years) and At-Risk Patients (6-50 Years) Aged Out 11/17/2024 No longer eligible based on patient's age to complete this topic Goals Goal Patient Goal Type Associated Problems Recent Progress Patient-Stated? Author Autogenerat ed Goal Care Plan Autogenerated Problem No Faustina Melissa Additional Health Concerns Active Problems Noted Date Diagnosed Date Autogenerated Problem 11/27/2024 Insurance [place] Care Teams Acetylene Gas Compressor Relationship Specialty Start Date End Date Edith Shelley MD [address] [place] [phone] PCP - General Internal Medicine 12/17/24
== END 2024-12-29 11:10 | disposition home or self-care (01) ==
LOC: HO.HHCX 11:09
PROVIDERS: Visit Provider Emergency Medicine
DX: R07.89 Other chest pain (principal); R06.00 Dyspnea, unspecified
CPT/HCPCS: 71046

== ENCOUNTER → 2024-12-29 11:09 | Outpatient (BNV) | payer SELFPAY | PROVIDERS: Visit Provider Radiology Diagnostic Radiology | DX: R06.02 Shortness of breath (principal); R12 Heartburn | CPT/HCPCS: 71046 ==

== ENCOUNTER 2025-03-02 08:22 | Emergency (ER) | payer MEDICAID, OTHER, SELFPAY ==
--- NOTE | ~2025-03-02 | CT_ITS ---
CLINICAL HISTORY: RUQ pain, history of gallstones CT abdomen and pelvis with contrast Comparison: US - US ABDOMEN COMPLETE - 10/21/24 07:[address] - CT ABDOMEN PELVIS WITH IV CONTRAST - 08/06/22 18:[address]/SR - CT ABDOMEN PELVIS WITH IV CONTRAST - 08/06/22 18:07 EST Findings: No consolidation or effusion. Unremarkable gallbladder and solid organs. No urolithiasis. No bowel obstruction, pneumoperitoneum, or pneumatosis. Pelvic contents unremarkable. Normal appendix. No acute fracture. IMPRESSION: No acute findings. This document has been electronically signed by: Remy Chavez DO on 03/02/2025 11:24:43
[2025-03-02 08:26] VITALS: BP 147/81; PULSE 86; RESP 20; TEMP 37; O2SAT 98; BMI 35.8
--- OUTSIDE RECORDS SUMMARY | 2025-03-02 08:38 | XMS_ITS | Clinical Summary ---
Author Organization [employer] Address [address] [facility] [address] [place] [address] Care Team Providers Care Geothermal Installer Name Role Phone Edith Shelley MD Primary Care Provide r Allergies No known active allergies Medications * This document contains information received from the source organization and may not represent a complete record from that organization. FLUoxetine (PROzac) 40 MG capsuleIndicatio ns:Anxiety disorder, unspecified type Take 1 capsule (40 mg) by mouth Once per day. 90 capsule 1 07/14/19 25 026 Active cholecalciferol (Vitamin D-3) 50 MCG (1999) capsule Take 1 capsule (50 mcg) by mouth Once per day. 90 capsule 3 09/09/19 25 026 Active pantoprazole (ProtoNix) 40 MG EC tablet TAKE 1 TABLET BY MOUTH TWICE DAILY IN THE MORNING AND IN THE EVENING WITH MEALS DO NOT BREAK, CRUSH, DISSOLVE OR CHEW 180 tablet 1 11/28/19 25 Active albuterol 108 (90 Base) MCG/ACT inhaler Inhale 2 puffs every 4 (four) hours if needed for wheezing or shortness of breath. 18 g 3 12/30/19 25 026 Active Spacer/Aero-Hold ing Chambers (OptiChamber Jazz) misc 1 each every 4 (four) hours if needed (asthma). 1 each 12/30/19 25 Active Gaviscon Extra Strength 254-237.5 MG/5ML suspensionIndica tions:Epigastric pain TAKE 10 ML BY MOUTH EVERY 6 HOURS NEEDED HEARTBURN FOR UP TO 10 DAYS 355 mL 1 02/06/20 25 Active sodium chloride (Deep Sea Nasal Montgomery) 0.65 % nasal sprayIndications :Congestion of nasal sinus INSTILL 1 TO 2 SPRAYS IN EACH NOSTRIL EVERY 2 TO 3 HOURS NEEDED FOR CONGESTION 44 mL 1 02/11/20 25 Active sodium chloride (Ringgold Nasal Montgomery) 0.65 % nasal sprayIndications :Congestion of nasal sinus 1-2 sprays on each nostril every 2-3 hours as needed for nasal congestion 30 mL 1 04/28/20 24 025 Discontinued carvedilol (Coreg) 6.25 MG tabletIndication s:Primary hypertension Take 1 tablet (6.25 mg) by mouth with breakfast and with evening meal. 60 tablet 11 07/14/19 25 025 Discontinued Active Problems Problem Noted Date Diagnosed Date Tobacco dependence 12/29/2024 Weight gain 11/17/2024 Assessment & Plan (11/17/2024 1:00 PM EDT): TSH will be checked Patient will be referred to hvac designer Class 2 severe obesity due t o excess calories with serious comorbidity and body mass index (BMI) of 36.0 to 36.9 in adult 11/17/2024 Assessment & Plan (11/17/2024 1:00 PM EDT): Extensive counseling about healthy diet and cardiovascular exercise on today I will refer patient to hvac designer I will check TSH Elevated LFTs 07/14/2024 Assessment & Plan (07/14/2024 [...] affected area Medications PRN if needed, I children's counselor about side effects including somnolence I [...] occurring symptoms PLAN: 1. Follow up with [facility]: Not recommended for follow-up 2. Patient goal is to have chest pain diminish 3. Behavioral Recommendations a. Patient will try techniques provided b. Patient will keep appointments with PCP and specialists c. Patient may reach out to speak with [facility], as needed Epigastric pain 01/08/2023 Assessment & Plan (11/17/2024 1:01 PM EDT): I advise patient to avoid NSAIDs, spicy and acid food, I advise to eat at the same time every day, I advise to elevate the head of the bed and take medications as prescribe I added today Maalox to be taken as needed for heartburn Assessment & Plan (12/03/2023 10:19 AM EDT): [...] Shortness of breath 11/24/2022 Assessment & Plan (02/23/2025 10:04 AM EDT): I will order a spirometry again, as soon as I have results I will contact him back I advised not to miss his appointment with time recorder Assessment & Plan (01/08/2023 10:43 AM EDT): Awaiting for pulmonary function test and sleep studies Loud snoring 11/24/2022 Apneic episode 11/24/2022 Gastroesophageal reflux disease without esophagi tis 11/24/2022 Assessment & Plan (02/23/2025 10:04 AM EDT): I advise patient to avoid NSAIDs, spicy and acid food, I advise to eat at the same time every day, I advise to elevate the head of the bed and take medications as prescribe Assessment & Plan (07/14/2024 11:56 AM EST): [...] daily Primary hypertension 08/28/2022 Assessment & Plan (02/23/2025 10:03 AM EDT): Today blood pressure is controlled 128/86, he tells me he has not been taking his blood pressure medication in some time now, reports that whenever he takes his blood pressure medication he feels weak and sick and for this reason he discontinued the medication he has been monitoring blood pressure at home and is always within normal limits, I advised to continue to monitor his blood pressure at home and continue doing exercise and try to lose some more weight, I also advised low-sodium diet Assessment & Plan (11/17/2024 1:01 PM EDT): Stable blood pressure is slightly elevated I advised to take his medication every day without missing any dose I advised low-sodium diet and weight reduction Assessment & Plan (07/14/2024 11:56 AM EST): [...] Encounters Date Type Department Care Team Description 02/23/2025 9:00 AM EDT Office Visit [facility] [address] [place] [phone] Edith Shelley MD Primary hypertension (Primary Dx); Shortness of breath; Gastroesophageal reflux disease without esophagitis 02/23/2025 Travel 02/20/2025 Telephone [facility] [address] [place] [phone] Edith Shelley MD Chart Prep 02/16/2025 Patient Outreach [facility] [address] [place] [address] Edith Shelley MD Pre-visit Planning (SDOH was already completed) 02/09/2025 Refill [facility] [address] [place] [phone] Edith Shelley MD Congestion of nasal sinus 02/04/2025 Refill [facility] [address] [place] [address] Edith Shelley MD Epigastric pain 12/30/2024 Telephone [facility] [address] [place] [phone] Edith Shelley MD Call Back Request 12/29/2024 10:20 AM EDT Office Visit [facility] [address] [place] [phone] Zack Holt MD Burning chest pain (Primary Dx); Dyspnea, unspecified type; Tobacco dependence 12/29/2024 Travel 12/05/2024 Telephone [facility] [address] [place] [phone] Edith Shelley MD Referral from Last 3 Months Immunizations Immunization Administration [...] Answer Date Recorded Patient Health Questionnaire-9 Score 0 02/23/2025 Patient Health Questionnaire-9 Score 0 02/23/2025 Last PHQ-9: Questionnaire Data Not on file 0 02/23/2025 Housing Stability Answer Date Recorded What is [...] Answer Date Recorded Patient Health Questionnaire-2 Score 0 02/23/2025 Internet Access Answer Date Recorded Internet Access [...] Sign Reading Time Taken Comments Blood Pressure 128/86 02/23/2025 9:09 AM EDT Pulse 90 02/23/2025 9:09 AM EDT Temperature 36.9 C (98.4 F) 02/23/2025 9:09 AM EDT Respiratory Rate 20 02/23/2025 9:09 AM EDT Oxygen Saturation 97% 12/29/2024 10:32 AM EDT Inhaled Oxygen Concentration - - Weight 96.4 kg (212 lb 9.6 oz) 02/23/2025 9:09 A M EDT Height 162.6 cm (5' 4 ) 02/23/2025 9:09 AM EDT Body Mass Index 36.49 02/23/2025 9:09 AM EDT Plan of Treatment Health Maintenance Due Date Last Done Comments Dental Oral Exam 1989 Dental Prophylaxis 1989 Dental X-Ray: Bitewings 1989 Dental X-Ray: Full Mouth 1989 Alcohol/Substance Use Screening 2001 Family Planning (PISQ) 2004 HPV Vaccines (1 - Male 3-dose series) 2004 Hepatitis B Vaccines (1 of 3 - 19+ 3-dose series) 2008 Influenza Vaccine (#1) 2025 04/28/2024, 2023 Diabetes: Hemoglobin A1C 09/04/2025 025, 05/05/2024, 07/09/2023, Additional history exists SDOH Screening 11/10/2025 11/10/2024 Disability Screening 11/17/2025 11/17/2024 Depression Screening 02/23/2026 02/23/2025, 02/24/20 25 Tobacco Screening 02/23/2026 02/23/2025 Lipid Panel 09/04/2029 09/04/2024, 10/2023, 07/09/2023, Additional history exists DTaP/Tdap/Td Vaccines (2 - Td or Tdap) 11/04/2033 11/05/2023 Zoster Vaccines (1 of 2) 09/01/2039 RSV Patients and Patients Aged 60 years or older (1 - 1-dose 75+ series) 2064 COVID-19 Vaccine Completed 04/28/2024, 07/09/2023 HIV Screening Completed 05/05/2024, 08/31, 11/24/2022 Hepatitis C Screening Completed 05/05/2024 , 09/24/2023, 11/24/2022 Pneumococcal Vaccine: Pediatrics (0 to 5 Years) and At-Risk Patients (6 to 49) Years Completed 11/17/2024 HIB Vaccines Aged Out No [...] Procedure Name Priority Date/Time Associated Diagnosis Comments ECG 12-LEAD Routine 12/29/2024 12:45 PM EDT Burning chest pain Dyspnea, unspecified type XR CHEST 2 VIEWS Routine 12/29/2024 10:3 3 AM EDT Burning chest pain Dyspnea, unspecified type HEMOGLOBIN A1C Routine 09/04/2024 11:36 AM EST Melena Chronic GERD LIPID PANEL, STANDARD Routine 09/04/2024 11:36 AM EST Melena Chronic GERD HEPATITIS C AB W/REFL TO HCV RNA, QN, PCR Routine 05/05/2024 8:15 AM EST Primary hypertension HIV 1/2 ANTIGEN/ANTIBODY, FOURTH GENERATION W/RFL Routine 05/05/2024 8:15 AM EST Primary hypertension from Last 3 Months or Most Recently Relevant to Health Maintenance Results * XR Chest 2 Views (12/29/2024 10:33 AM EDT) Anatomical Region Laterality Modality Chest Radiographic Phyllis ging 12/29/2024 10:3 3 AM EDT Narrative 12/29/2024 11:42 [place] [address] XRay Report Signed Patient: Jesika Cordero MR#: [id number] : 1990 Acct:[id number] Age/Sex: 34 / M ADM Date: 12/29/24 Loc: HO.HHCX Attending Dr: Zack Holt MD Ordering Physician: ZACK HOLT MD Date of Service: 12/29/24 Procedure(s): XR chest 2V Accession Number(s): [id number] cc: ZACK HOLT MD EXAMINATION: XR CHEST CLINICAL INFORMATION: chest burning sensation across chest, SOB COMPARISON: Considering 19/11/2023 TECHNIQUE: Chest burning sensation, shortness of breath FINDINGS: Heart and mediastinal contours are within normal limits. The lungs are clear and well expanded. Pulmonary vasculature is distinct. There is no pleural effusion. XR/XR chest 2V IMPRESSION: No acute disease Electronically signed by: Catrachito Hawkins MD 12/29/2024 11:39 AM EDT RP Dictated By: Catrachito Hawkins MD Signed By: <Electronically signed by Catrachito Hawkins MD in OV> 12/29/24 1139 DD/ 1033 TD/TT: 12/29/24 1100 Lubricating Specialist: Procedure Note Donotuseinterpreter, Image - 12/29/[address] [address] XRay Report Signed Patient: Jacquelin Cordero#: [id number] : 1990Acct:[id number] Age/Sex: 34 / MADM Date: 12/29/24 Loc: HO.HHCX Attending Dr: Zack Holt MD Ordering Physician: ZACK HOLT MD Date of Service: 12/29/24 Procedure(s): XR chest 2V Accession Number(s): [id number] cc: ZACK HOLT MD EXAMINATION: XR CHEST CLINICAL INFORMATION: chest burning sensation across chest, SOB COMPARISON: Considering 19/11/2023 TECHNIQUE: Chest burning sensation, shortness of breath FINDINGS: Heart and mediastinal contours are within normal limits. The lungs are clear and well expanded. Pulmonary vasculature is distinct. There is no pleural effusion. XR/XR chest 2V IMPRESSION: No acute disease Electronically signed by: Catrachito Hawkins MD 12/29/2024 11:39 AM EDT RP Dictated By: Catrachito Hawkins MD Signed By: <Electronically signed by Catrachito Hawkins MD in OV> 12/29/24 1139 DD/ 1033 TD/TT: 12/29/24 1100 Lubricating Specialist: Zack Holt MD IMG XR PROCEDURES Final Result * Hemoglobin A1c (09/04/2024 11:36 AM EST) Hemoglobin A1c 5.6 <6.0 % [facility] Comment:Hemoglobin A1C Refer ence Range Adults: 4.8 - 6.0 % Non diabetic: < 6.0 % Goal: < 7.0 %Additional Action Suggested: > 8.0 %Note: Hemoglobin A1c results are invalid for patients with abnormal amounts of HbF. Blood transfusions may impact the HbA1c concentration in the patient sample. Estimated Average Glucose 114 mg/dL [facility] Comment:eAG = Estimated ave rage glucose which is %A1C expressed asaverage glucose, using the formula of the O2Z-LbfnaqbWwvgkgu Glucose study (ADAG), Diabetes Care, Vol.31,#8,Jan. 2007 Blood Venous blood specimen / Unknown 09/04/2024 11:36 AM EST 09/04/2024 1:16 PM EST Livia Issa DO LAB BLOOD ORDERABLES Final R esult [facility] [address] [place] [phone] * (ABNORMAL) Lipid Panel, Standard (09/04/2024 11:36 AM EST) Triglycerides 184(H) <150 mg/dL [facility] Comment:Desirable Triglyceri de: less than 150 mg/dLBorderline High Triglyceride 150-199 mg/dLHigh Triglyceride: 200-499 mg/dLVery High Triglyceride: greater than or equal to 5OO mg/dL Cholesterol 248(H) <200 mg/dL [facility] Comment:Desirable Cholestero l: less than 200 mg/dLBorderline High Cholesterol: 200-239 mg/dLHigh Cholesterol: greater than 239 mg/dL LDL Cholesterol Calculated 171(H) <100 mg/dL [facility] Comment:Desirable LDL: less than 100 mg/dLNear Optimal/Above Optimal LDL: 110- 129 mg/dLBorderline High LDL: 130-159 mg/dLHigh LDL: 160-189 mg/dLVery High LDL: greater than or equal to 190 mg/dL HDL Cholesterol 41 >40 mg/dL [facility] Comment:Desirable HDL: great er than 40 mg/dL Note: This HDL assay may give artificially low results in patients with liver disease. Blood Venous blood specimen / Unknown 09/04/2024 11:36 AM EST 09/04/2024 1:16 PM EST us Livia Issa DO LAB BLOOD ORDERABLES Final R esult Performing Organization Address [facility] Co de Phone Number [facility] [address] [place] [phone] * Hepatitis C Antibody with Reflex to HCV, RNA, Quantitative, Real-Time PCR (05/05/2024 8:15 AM EST) Hepatitis C Antibody Nonreactive Nonreactive [facility] Comment:Antibodies to HCV no t detected; does not exclude early acuteHCV infection. Blood Venous blood specimen / Unknown 05/05/2024 8:15 AM EST 05/05/2024 11:10 AM EST us Edith Whiteside MD LAB BLOOD ORDERABLES Final Result Performing Organization Address [facility] Co de Phone Number [facility] [address] [place] [phone] * HIV-1/2 Antigen and Antibodies, Fourth Generation, with Reflexes (05/05/2024 8:15 AM EST) HIV AB/AG Nonreactive Nonreactive [facility] Comment:HIV-1 p24 Ag and/or HIV-1/HIV-2 Ab not detected.A test result that is nonreactive does not exclude thepossibility of exposure to or infection with HIV-1 and/orHIV-2. Nonreactive results in this assay for individualswith prior exposure to HIV-1 and/or HIV-2 may be due toantigen and antibody levels that are below the limit ofdetection of this assay.The Jacobs Alinity HIV Ag/Ab Combo assay result andsupplemental assay results should be interpreted inconjunction with the patient's clinical presentation,history and other laboratory results. If the results areinconsistent with clinical evidence, additional testing issuggested to confirm the result. Blood Venous blood specimen / Unknown 05/05/2024 8:15 AM EST 05/05/2024 11:10 AM EST Edith Whiteside MD LAB BLOOD ORDERABLES Final Result [facility] [address] [place] [phone] from Last 3 Months or Most Recently Relevant to Health Maintenance Insurance [facility] FULL DENTAL[place] ADULT DENTAL - [facility]SN FULL (MEDICAID) Care Teams Geothermal Installer Relationship Specialty Start Date End Date Edith Shelley MD [address] [place] [phone] PCP - General Internal Medicine 10/24/22
--- OUTSIDE RECORDS SUMMARY | 2025-03-02 08:38 | XMS_ITS | Encounter Summary ---
Author Organization [facility] Address [address] [place] [address] Care Team Providers Care Construction Stonemason Name Role Phone Edith Shelley MD Primary Care Provider Encounter Details Date Type Department Care Team (Late st Contact Info) Description 09/15/2022 Orders Only [facility] Entrance B Interventional Radiology [address] [place] [phone] Jacobo Smith MD [address] [place] [phone] Social History Tobacco Use Types Packs/Day Years [...] Care Team (Late st Contact Info) Description 06/01/2025 4:00 PM EST Office Visit [facility] [address] [place] [phone] Skein Washer: Karthik Gillespie MD [address] [place] [phone] documented as of this encounter Visit Diagnoses Not on filedocumented in this encounter Care Teams Construction Stonemason Relationship Specialty Start Date End Date Edith Shelley MD [address] [place] [phone] PCP - General Internal Medicine 12/17/24 documented as of this encounter
--- OUTSIDE RECORDS SUMMARY | 2025-03-02 08:38 | XMS_ITS | Encounter Summary ---
Author Organization [employer] Address [address] [place] [address] Care Team Providers Care Municipal Services Manager Name Role Phone Edith Shelley MD Primary Care Provide r Reason for Visit * Reason Comments Med Refill Encounter Details Date Type Department Care Team (Late st Contact Info) Description 11/05/2023 Refill [facility] [address] [place] [address] Narciso Mooney FNP Primary hypertension Social History [...] documented as of this encounter Care Teams Municipal Services Manager Relationship Specialty Start Date End Date Edith Shelley MD [address] [place] [phone] PCP - General Internal Medicine 10/24/22 documented as of this encounter
--- OUTSIDE RECORDS SUMMARY | 2025-03-02 08:38 | XMS_ITS | Encounter Summary ---
Author Organization [facility] Address [address] [place] [address] Care Team Providers Care Computer Aide Name Role Phone Edith Shelley MD Primary Care Provider Reason for Referral * Consultation (Routine) - Authorized Specialty Diagnoses / Procedures Referred By Contzakiya t Referred To Contact Pulmonary Disease / Pulmonary Diagnoses Burning chest pain Dyspnea, unspecified type Edith Shelley MD [address] [place] [address] Phone: tel: fax: [facility] [address] [place] [phone] Phone: tel: fax: Referral ID Status Reason Start Date Expiration Date Visits Requested Visits Authorized [id number] Authorized Specialty Services Required 01/14/2025 02/14/2026 6 6 Encounter Details Date Type Department Care Team (Latest Contact Info) Description 01/14/2025 Transcribe Orders [facility]erral [facility] [address] [place] [address] Edith Shelley MD [address], [place] [phone] Burning chest pain (Primary Dx); Dyspnea, unspecified type Social History Tobacco Use Types Packs/Day Years Used Date Smoking Tobacco: Former Cigarettes Smokeless Tobacco: Never Alcohol Use Standard Drinks/Week Comments Yes 0 [...] Description 06/01/2025 4:00 PM EST Office Visit [facility] [address] [place] [address] Assembly Associate: Karthik Gillespie MD [address] [place] [address] Scheduled Referrals Name Type Priority Associated Diagnoses Orde r Schedule Ambulatory referral to Pulmonology Outpatient Referral Routine Burning chest pain Dyspnea, unspecified type Expected: 01/14/2025, Expires: 02/14/2026 documented as of this encounter Goals Goal Patient Goal Type Associated Problems Recent Progress Patient-Stated? Author Autogenerat ed Goal Care Plan Autogenerated Problem No Faustina Melissa documented as of this encounter Visit Diagnoses Diagnosis Burning chest pain- Primary Other chest pain Dyspnea, unspecified type documented in this encounter Additional Health Concerns Active Problems Noted Date Diagnosed Date Autogenerated Problem 11/27/2024 documented as of this encounter Care Teams Computer Aide Relationship Specialty Start Date End Date Edith Shelley MD [address] [place] [phone] PCP - General Internal Medicine 12/17/24 documented as of this encounter
--- OUTSIDE RECORDS SUMMARY | 2025-03-02 08:38 | XMS_ITS | Clinical Summary ---
Author Organization [facility] Address [address] [place] [address] Care Team Providers Care Level Vial Marker Name Role Phone Edith Shelley MD Primary Care Provider Allergies No known active allergies Medications hydroCHLOROthiazid e (HYDRODIURIL) 25 mg tablet Take 25 mg by mouth daily. Active omeprazole (PriLOSEC) 20 mg capsule Take 20 mg by mouth 2 times daily. 08/29/19 23 Active lisinopriL (PRINIVIL,ZESTRIL) 10 mg tablet Take 10 mg by mouth once a day. Active fish oil 340-1,000 mg capsule Take 1,000 mg by mouth once a day. Active meclizine (ANTIVERT) 25 mg tablet Take 25 mg by mouth 3 times daily as needed. 10/24/[address] (PROTONIX) 20 mg tablet SMARTSI Tablet(s) By Mouth Every Morning 02/06/20 23 Active Deep Sea Nasal 0.65 % nasal spray SMARTSI-2 [place](s) Both Nares Every 2-3 Hours 02/06/20 23 Active carvediloL (COREG) 6.25 mg tabletIndications: Hypertension, unspecified type Take 1 tablet (6.25 mg total) by mouth 2 times a day with meals. 180 tablet 3 11/07/19 24 Active atorvastatin (LIPITOR) 20 mg tabletIndications: Hyperlipidemia, unspecified hyperlipidemia type Take 1 tablet (20 mg total) by mouth once a day. 90 tablet 3 01/02/20 25 026 Active Vitamin D3 50 mcg (2,000 unit) capsule SMARTSI Capsule(s) By Mouth Daily Active FLUoxetine (PROzac) 40 mg capsule Take 40 mg by mouth daily. 07/14/19 25 026 Active polyethylene glycol (GoLYTELY) solution Refer to prep instructions provided by your physician. Add 1 gallon (128 ounces) of water to the GoLytely/Colyte /Nulytely container and refrigerate. At 4 PM the day before your procedure, drink one 8-ounce glass of the bowel preparation solution every 10 - 15 minutes until half the container is empty, about 8 glasses. Five (5) hours before your procedure drink one 8-ounce glass of the bowel preparation solution every 10 - 15 minutes until the entire container is empty. Continue to drink clear non-alcoholic liquids up until 2 hours prior to your procedure. 4000 mL 01/01/20 25 025 Discontin ued(Stop Taking at Discharge ) Active Problems Problem Noted Date Diagnosed Date [...] with me. It can be with any [facility] GI physician so long as they can [...] might be to have him see a sales commissions analyst) Apneic episode 11/24/2022 Chronic fatigue 11/24/2022 Encounters Date Type Department Care Team Description 02/12/2025 12:45 PM EDT Anesthesia Event [address] Endoscopy [address] [address] Gabriele Coffman MD 02/12/2025 12:35 PM EDT - 02/12/2025 1:20 PM EDT Surgery [address] [address] Ciaran Campbell MD UPPER ENDOSCOPY; DIAGNOSTIC WITH BRUSH/WASH (SP) WITH POSSIBLE MODERATE SEDATION [05426 (CPT )] 02/12/2025 11:05 AM EDT - 02/12/2025 2:24 PM EDT Hospital Encounter [address] [address] Ciaran Campbell MD Chronic GERD; Rectal bleeding Discharge Disposition: Home or Self Care (01) 01/14/2025 Transcribe Orders [facility] Physician Referral Services [address] [place] [address] Edith Shelley MD Burning chest pain (Primary Dx); Dyspnea, unspecified type 01/06/2025 1:30 PM EDT Office Visit [facility] [address] [place] [address] Manager Client: Sunday Waterman Jr., MD Gallbladder polyp (Primary Dx) 12/29/2024 Prep for Case [facility] Endoscopy [address] [place] [address] Ciaran Campbell MD 12/29/2024 Refill [facility] Building 4th floor Cardiology Medicine [address] [place] [address] Manager Client: Martinez Neves MD Hyperlipidemia, unspecified hyperlipidemia type from Last 3 Months Social History Tobacco [...] Sign Reading Time Taken Comments Blood Pressure 113/67 02/12/2025 1:30 PM EDT Pulse 89 02/12/2025 1:30 PM EDT Temperature 36.2 C (97.1 F) 02/12/2025 1:15 PM EDT Respiratory Rate 22 02/12/2025 1:30 PM EDT Oxygen Saturation 98% 02/12/2025 1:30 PM EDT Inhaled Oxygen Concentration - - Weight 95.3 kg (210 lb) 02/12/2025 11:29 AM EDT Height 165 cm (5' 4.96 ) 02/12/2025 11:29 AM EDT Body Mass Index 34.99 02/12/2025 11:29 AM EDT Plan of Treatment Upcoming Encounters Date Type Department Care Team (Late st Contact Info) Description 06/01/2025 4:00 PM EST Office Visit [facility] [address] [place] [address] Manager Client: Karthik Gillespie MD [address] [place] [id number] Health Maintenance Due Date Last Done Comments Varicella Vaccines (1 of 2 - 13+ 2-dose series) 2002 Hepatitis B Vaccines (1 of 3 - 19+ 3-dose series) 2008 Alcohol/Substance Use Screening 07/02/2024 Depression Screening and Follow-Up 07/02/2024 Need Fixed of Health Annual Screening 07/02/2024 Influenza Vaccine (#1) 2025 04/28/2024, 2023 Diabetes Screening 11/18/2027 11/17/2024, 0 09/04/2024, 11/24/2022, Additional history exists DTaP,Tdap,and Td Vaccines (2 - Td or Tdap) 11/04/2033 11/05/2023 RSV Vaccine (60+ years old and patients) (1 - 1-dose 75+ series) 2064 COVID-19 Vaccine Completed 04/28/2024, 07/09/2023 HIV Screening Completed 05/05/2024, 10/2023, 09/24/2023, Additional history exists Hepatitis C Screening Completed 05/05/2024 Pneumococcal Vaccine: Pediatric (0-5 Years) and At-Risk Patients (6-50 Years) Aged Out 11/17/2024 No longer eligible based on patient's age to complete this topic Goals Goal Patient Goal Type Associated Problems Recent Progress Patient-Stated? Author Autogenerat ed Goal Care Plan Autogenerated Problem No Faustina Melissa Procedures * Due to [place] law, this organization might not be sharing negative HIV tests. Procedure Name Priority Date/Time Associated Diagnosis Comments TISSUE EXAM Routine 02/12/2025 1:04 PM EDT Chronic GERD Rectal bleeding MO COLONOSCOPY FLX DX W/SHUBHAM J SPEC WHEN PFRMD 02/12/2025 12:34 PM EDT Chronic GERD Rectal bleeding MO ESOPHAGOGASTRODUODENOSCOP Y TRANSORAL DIAGNOSTIC 02/12/2025 12:34 PM EDT Chronic GERD Rectal bleeding COLONOSCOPY 02/12/2025 UPPER GI ENDOSCOPY 02/12/2025 BASIC METABOLIC PANEL Routine 09/13/2022 10:33 AM EDT Hyperlipidemia, unspecified hyperlipidemia type from Last 3 Months or Most Recently Relevant to Health Maintenance Results * Due to [place] law, this organization might not be sharing negative HIV tests. * Tissue Exam (02/12/2025 1:04 PM EDT) Final Diagnosis Colon (Descending), Polypectomy: - Tubular adenoma [facility] MANUAL 02/13/2025 1:03 PM EDT [facility] at 1303 EDT Clinical History Pre-op diagnosis: Chronic GERD [K21.9] Rectal bleeding [K62.5] [facility]UAL 02/13/2025 1:03 PM EDT [facility] Gross Description 1. Large Intestine, Descending Colon Received in formalin labeled the patient's name, date of , MRN and descending colon polyp x 2 is an aggregate of kumar-white irregular soft tissue fragments measuring 0.7 x 0.5 x 0.1 cm. The tissue is filtered and submitted in toto cassette 1A. [facility] MANUAL 02/13/2025 1:03 PM EDT [facility] Gross Description User Grossing complete by Macie Chaney on 02/12/2025 5:29 PM [facility] MANUAL 02/13/2025 1:03 PM EDT [facility] Embedded Images [facility] MANUAL 02/13/2025 1:03 PM EDT [facility] Resulting Agency Case was signed out at [facility], Department of Pathology, [employer] 3 CLIA [id number] [facility] MANUAL 02/13/2025 1:03 PM EDT [facility] Report Header Surgical Pathology Report Case: [id number] Authorizing Provider: Ciaran Campbell MD Collected: 02/12/2025 1304 Ordering Location: [facility] Received: 02/12/2025 [address] [facility] Pathologist: Gricelda Castellon Specimen: Large Intestine, Descending Colon, descending colon polyp x 2 02/13/2025 1:03 PM EDT [facility] ProVation Case Yes [facility] MANUAL 02/13/2025 1:03 PM EDT [facility] SURGICAL CSN Component [id number] [place] MANUAL 02/13/2025 1:03 PM EDT [facility] Polyp Entire descending colon / Unknown 02/12/2025 1:04 PM EDT 02/12/2025 4:08 PM EDT Comment:Pre-op diagnosis: Chronic GERD [K21.9] Rectal bleeding [K62.5] us Ciaran Campbell MD LAB PATHOLOGY/CYTOLOGY ORDERABLE S Final Result [facility] [address] [place] [address], [place] * UPPER GI ENDOSCOPY (02/12/2025) Narrative Procedure Note Ciaran Campbell MD - 02/12/2025 12:38 PM EDT [facility] Endoscopy - [address] [place] [address] Patient Name: Jesika Rivero Procedure Date: 02/12/2025 12:38PM Date of : 1990 Admit Type: Outpatient Age: 34 Room: [facility] 01 Gender: Male Note Status: Finalized Attending MD: Ciaran Campbell MD Procedure: Upper GI endoscopy Indications: Heartburn, Suspected gastro-esophageal reflux disease Providers: Ciaran Campbell MD Referring MD: Edith Rodriguez (Referring MD) Requesting Provider: Medicines: Propofol per Anesthesia Complications: No immediate complications. Procedure: After obtaining informed consent, the endoscope was passed under direct vision. Throughout theprocedure, the patient's blood pressure, pulse, and oxygen saturations were monitored continuously. The Endosonoscope was introduced through the mouth, and advanced to the second part of duodenum. The upperGI endoscopy was accomplished without difficulty. The patient tolerated the procedure well. Findings: The Z-line was regular and was found 40 cm from the incisors. The esophagus was normal. The entire examined stomach was normal. The examined duodenum was normal. Impression: - Z-line regular, 40 cm from the incisors. - Normal esophagus. - Normal stomach. - Normal examined duodenum. - No specimens collected. Recommendation: - Perform a colonoscopy today. Ciaran Campbell MD 02/12/2025 12:54:55 PM This report has been signed electronically. Number of Addenda: 0 Note Initiated On: 02/12/2025 12:38 PM Estimated Blood Loss: Estimated blood loss: none. us Ciaran Campbell MD PROVATION PROCEDURES Final Resul t * COLONOSCOPY (02/12/2025) Narrative Procedure Note Ciaran Campbell MD - 02/12/2025 12:34 PM EDT [facility] Endoscopy - [facility] Patient Name: Jesika Rivero Procedure Date: 02/12/2025 12:34PM Date of : 1990 Admit Type: Outpatient Age: 34 Room: [place] [address] Gender: Male Note Status: Finalized Attending MD: Ciaran Campbell MD Procedure: Colonoscopy Indications: Rectal bleeding Providers: Ciaran Campbell MD Referring MD: Edith Rodriguez (Referring MD) Requesting Provider: Medicines: Propofol per Anesthesia Complications: No immediate complications. Procedure: After I obtained informed consent, the scope was passed under direct vision. Throughout theprocedure, the patient's blood pressure, pulse, and oxygen saturations were monitored continuously. The Colonoscope was introduced through the anus and advanced to the cecum, identified by appendiceal orifice and ileocecal valve. The colonoscopy was performed without difficulty. The patient tolerated the procedure well. The quality of the bowel preparation was good. Findings: The perianal and digital rectal examinations were normal. Two sessile polyps were found in the descending colon. The polypswere 4 to 6 mm in size. These polyps were removed with a cold snare.Resection and retrieval were complete. The exam was otherwise without abnormality on direct and retroflexion views. Impression: - Two 4 to 6 mm polyps in the descending colon, removed with a cold snare. Resected andretrieved. - The examination was otherwise normal on directand retroflexion views. Recommendation: - Discharge patient to home. - Resume previous diet. - Continue present medications. - Await pathology results. - Repeat colonoscopy in 5 years for surveillance. - Return to referring provider as previouslyscheduled. Ciaran Campbell MD 02/12/2025 1:11:04 PM This report has been signed electronically. Number of Addenda: 0 Note Initiated On: 02/12/2025 12:34 PM Estimated Blood Loss: Estimated blood loss: none. us Ciaran Campbell MD PROVATION PROCEDURES Final Resul t * (ABNORMAL) Basic metabolic panel (09/13/2022 10:33 AM EDT) NA 138 135 - 145 mmol/L 09/13/2022 11:24 AM EDT [facility] K 3.7 3.5 - 5.3 mmol/L 09/13/2022 11:24 AM EDT [facility] Cl 102 97 - 110 mmol/L 09/13/2022 11:24 AM EDT [facility] CO2 28 24 - 32 mmol/L 09/13/2022 11:24 AM EDT [facility] BUN 13 7 - 23 mg/dL 09/13/2022 11:24 AM EDT [facility] Creatinine 0.68 0.60 - 1.30 mg/dL 09/13/2022 11:24 AM EDT [facility] Glucose 108(H) 70 - 99 mg/dL 09/13/2022 11:24 AM EDT [facility] Calcium 10.0 8.7 - 10.7 mg/dL 09/13/2022 11:24 AM EDT [facility] Anion Gap 8 5 - 15 09/13/2022 11:24 AM EDT [facility] eGFR >90 >=90 mL/min/1. 73m2 09/13/2022 11:24 AM EDT [facility] Comment: Estimated Glomerular Filtration [...] LAB BLOOD ORDERABLES Final R esult [facility] [address] [place] [address], from Last 3 Months or Most Recently Relevant to Health Maintenance Additional Health Concerns Active Problems Noted Date Diagnosed Date Autogenerated Problem 11/27/2024 Insurance [facility] Care Teams Level Vial Marker Relationship Specialty Start Date End Date Edith Shelley MD [address] [place] [address] PCP - General Internal Medicine 12/17/24
--- NOTE | 2025-03-02 09:44 | ED_ITS ---
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 Patient states he was seen [place] [facility] [place] and was told he had issues with his gallbladder reports he followed up with surgery who determined he did not need intervention at that time. 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 Patient reports taking Tylenol intermittently without effect. Patient states he drinks approximately 10 beers 1-2 times per month. Denies fevers, chills, sick contacts, cough, headache, visual changes, nausea, vomiting, diarrhea, black/tarry stool MD complaint: L shoulder pain, abd pain Related Data Previous Rx's ?Medication ?Instructions ?Recorded hydrochlorothiazide 25 mg tablet 25 mg PO DAILY #30 ta bs 07/24/22 ketorolac 10 mg tablet 10 mg PO TID PRN pain 5 days #15 07/26/23 tabs lidocaine 5 % topical patch 1 patch topical DAILY PRN pain #15 07/26/23 ea Allergies Allergy/AdvReac Type Severity Reaction Status Date / Time No Known Allergies Allergy Verified 03/02/25 08:27 Review of Systems 2 Review of Systems: CONST: Negative for fever, body aches and chills. HENT: Negative for neck pain/stiffness, headache, congestion, sore throat, swelling. EYES: Negative for discharge/pain or vision changes. RESP: Negative for cough/hemoptysis and shortness of breath. CV: Negative chest pain, difficulty breathing, palpitations. ABD: Negative nausea, vomiting. POS RUQ abd pain : Negative increase frequency, dysuria, blood in urine or stool. MUSC: Negative for muscle aches, edema. POS B/L shoulder pain radiating to pectoralis muscles. SKIN: Negative rash, lesions/sores. NEURO: Negative headache, dizziness, weakness. Yes all other systems are reviewed and are negative [facility] Past Medical History Medical History Hypertension Social History Social History Alcohol intake: current Alcohol intake frequency: holidays/special occasions only Advance Directives: No Advance Directives Information Provided: Yes Physical Exam ED Vital Signs: Vital Signs - 24 hr 03/02/25 08:26 Temperature 98.6 F Pulse Rate 86 Respiratory Rate 20 Blood Pressure 147/81 H Pulse Oximetry 98 Oxygen Delivery Method Room Air BMI result Body Mass Index 35.8 GENERAL APPEARANCE: ?AxOx4, generally well-appearing, no acute distress. HEENT: ?NC, AT. MMM. EOMI, clear conjunctiva, oropharynx clear. NECK: ?Supple without lymphadenopathy.? No stiffness or restricted ROM. HEART:? Normal rate and regular rhythm, normal S1/S2, no m/r/g LUNGS:? CTAB, moving air well. No crackles or wheezes are heard. ABDOMEN: ?Soft, nondistended, no rigidity, TTP of RUQ however negative Bullard's sign, no rebound tenderness, no guarding BACK: No CVAT, no obvious deformity. EXTREMITIES: ?Without cyanosis, clubbing or edema. NEUROLOGICAL: ?Grossly nonfocal. Alert and oriented, moving all 4 extremities. Observed to ambulate with normal gait. Skin: ?Warm and dry without any rash. Medications Administered Discontinued Medications Generic Name Dose Route Start Last Admin Trade Name Bailee PRN Reason Stop Dose Admin Acetaminophen 975 mg 03/02/25 11:34 03/02/25 11:51 Acetaminophen 325 Mg Tablet PO 03/02/25 11:35 Not Given ONCE ONE Acetaminophen 1,000 mg in 100 mls @ 400 mls/hr 03/02/25 11:48 03/02/25 12:20 Ofirmev IV 03/02/25 12:02 Infused ONCE ONE Infusion Iohexol 100 ml 03/02/25 10:46 03/02/25 10:46 Iohexol 350 Mg/Ml 100 Ml Infus..Btl IV 03/02/25 10:47 85 ml ONCE ONE Administration Ketorolac Tromethamine 30 mg 03/02/25 11:34 03/02/25 11:51 Ketorolac Tromethamine 30 Mg/Ml Vial IM 03/02/25 11:35 Not Given ONCE ONE Ketorolac Tromethamine 15 mg 03/02/25 11:47 03/02/25 11:57 Ketorolac Tromethamine 15 Mg/Ml Vial IVPUSH 03/02/25 11:48 15 mg ONCE ONE Administration Medical Decision Making Medical Decision Making MDM Narrative: 34-year-old male with medical history of HTN presents with 2 weeks of B/L shoulder pain radiating to bilateral pectoralis muscles, right upper quadrant abdominal pain that radiates to the left shoulder. Patient states he has had some issues with his gallbladder in the past, has had it evaluated in [place]. Patient states he followed up with surgeon who did not recommend surgery at that time. Additionally patient states he is having some chest pain that feels like a dull ache of his midsternal area. Plan: Labs, EKG, CT abdomen and pelvis Course EKG reveals normal sinus rhythm with an incomplete right bundle branch block, no change when reviewing prior EKG on 07/26/2023, initial troponin and 2nd troponin both undetectable at <2.7 with reproducible chest pain on palpation- less likely ACS Labs without leukocytosis/leukopenia, H&H stable, no electrolyte abnormality, random serum glucose of 104, total bilirubin WNL at 0.6, lipase WNL at 21, mild transaminitis with ALT of 52 however this is around patient's baseline, alkaline phosphatase increased at 158 which is around patient's baseline as well.- less likely cholelithiasis/choledocholithiasis, pancreatitis CT abdomen and pelvis negative for acute abdomen, obstructive pathology. Patient was medicated with 15 mg IV Toradol, 1 g IV Tylenol with good effect of his pain. Patient works in food counter attendant, with repetitive movements of his arms, heavy lifting, his chest pain is reproducible when I palpate insertion point of ribs to the sternum. While patient was in the department vital signs hemodynamically stable, with good relief after being medicated. Patient states [place] see [place] cardiologists [place] However this doctor has retired, has not followed up. I placed a referral to [facility] cardiologists for patient to follow up with. Patient is in agreement with the plan, feels comfortable to go home for self-care. I counseled patient on strict return precautions. Differential Diagnosis Differential Diagnoses: The differential diagnosis associated with the presentation includes ACS Pancreatitis Cholelithiasis Choledocholithiasis Costochondritis Admission/Observation Consideration of admission/observation: Escalation of care including admission/observation considered Lab Data MDM Lab Attestation statement: I reviewed the patient's lab results. 03/02/25 10:12 03/02/25 10:12 Labs: Lab Results 03/02/25 Range/Units 10:12 WBC 10.7 (4.8-10.8) X10*3/uL RBC 5.03 (4.60-5.80) X10*6/uL Hgb 14.5 (14.0-18.0) g/dl Hct 41.4 L (42.0-52.0) % MCV 82.3 (80.0-98.0) fL MCH 28.8 (27.0-33.0) pg MCHC 35.0 (31.0-36.0) g/dl RDW 14.0 (11.0-16.0) % Plt Count 485 H (160-400) X10*3/uL MPV 8.8 L (9.4-12.4) fL Immature Gran % (Auto) 0.3 (0.0-0.4) % Neut % (Auto) 65.8 (45-73) % Lymph % (Auto) 26.4 (20-40) % Bond % (Auto) 5.7 (2-11) % Eos % (Auto) 1.4 (0-4) % Baso % (Auto) 0.4 (0-2) % Lymph # (Auto) 2.8 (1.2-4.9) X10*3/uL Bond # (Auto) 0.6 (0.1-1.2) X10*3/uL Eos # (Auto) 0.2 (0.0-0.4) X10*3/uL Baso # (Auto) 0.0 (0.0-0.2) X10*3/uL Abs Immat Gran (auto) 0.03 (0.00-0.03) X10*3/uL Absolute Neuts (auto) 7.1 (2.0-8.3) x10*3/uL Absolute Nucleated RBC 0.000 (0.0-0.012) X10*3/uL Nucleated RBC % (auto) 0.0 (0.0-0.2) /100WBC Sodium 140 (135-145) mmol/L Potassium 3.8 (3.3-5.1) mmol/L Chloride 111 H (96-108) mmol/L Carbon Dioxide 22 (22-29) mmol/L Anion Gap 11 L (12-20) BUN 8 L (9-16) mg/dL Creatinine 0.61 (0.5-1.4) mg/dL Estim Creat Clear Calc 181.6 Estimated GFR > 60 Random Glucose 104 (60-115) mg/dL Calcium 8.8 D (8.4-10.2) mg/dL Magnesium 2.2 (1.6-2.6) mg/dL Total Bilirubin 0.6 (0.0-1.0) mg/dL AST 29 (5-37) U/L ALT 52 H (0-40) U/L Alkaline Phosphatase 158 H (39-117) U/L Troponin I High Sens < 2.7 (<3.5-35.0) ng/L Total Protein 7.2 (6.5-8.0) g/dL Albumin 4.7 (3.5-5.0) g/dL Lipase 21 (8-78) U/L Independent Interpretation I performed an independent interpretation of an: EKG Interpretation: I personally interpreted the EKG which revealed normal sinus rhythm with an incomplete right bundle-branch block, no ST-elevation/depression Vent. Rate : 60 BPM Atrial Rate : 60 BPM P-R Int : 166 ms QRS Dur : 102 ms QT Int : 410 ms P-R-T Axes : 32 71 41 degrees QTcB Int : 410 ms Normal sinus rhythm Incomplete right bundle branch block Borderline ECG When compared with ECG of 26-Jul-2023 08:44, No significant change was found I personally interpreted the CT abdomen and pelvis which did not reveal acute abdomen, or obstructive pathology, I agree with the radiologist's interpretation. Radiology Impression Discussion of test interpretation with radiology: I have reviewed the radiologist's reading. Radiologist Impression: CT abdomen and pelvis Findings: No consolidation or effusion. Unremarkable gallbladder and solid organs. No urolithiasis. No bowel obstruction, pneumoperitoneum, or pneumatosis. Pelvic contents unremarkable. Normal appendix. No acute fracture. IMPRESSION: No acute findings. This document has been electronically signed by: Remy Chavez DO on 03/02/2025 11:24:43 Dictated By: Remy Chavez DO Signed By: <Electronically signed by Remy Chavez DO in OV> 03/02/25 1125 External Record Review External record reviewed: Inpatient record, Office record and Outpatient record Chronic Conditions Patient?s care impacted by: Hypertension and Other (HLD) Discharge Plan Discharge Clinical Impression: Costochondritis Patient Disposition: Home, Self-Care Additional Instructions: You were evaluated in the ED today due to shoulder pain, right upper quadrant abdominal pain, and chest pain. Your lab work was reassuring as there was no indication of infection or a lap electrolyte abnormality. However you do have an elevation in your liver enzymes. This may be due to your alcohol intake or possibly nonalcoholic fatty liver disease. I encourage you for follow up to your primary care doctor for these lab values. Your EKG was normal sinus rhythm however did show an incomplete right bundle branch block this is disorganized electrical activity in the heart, without indication of an emergent cardiac process. Your troponins which is an enzyme that the heart gives off when under stress or damage were both negative. Your physical exam was reassuring as your chest pain is reproduced when I pressed on your sternum. Your CAT scan of your abdomen and pelvis was negative for any emergent processes in your abdomen, or disease of your gallbladder. You were medicated in the department today with IV Toradol, and Tylenol with good effect of your pain. Please follow up with your primary care doctor on the elevated liver enzymes. I placed a referral to our [facility] cardiologists for follow up, call their office as they will not call you. Please return to the emergency department if you experience fevers over 100.4?, increasing chest pain, shortness of breath, difficulty breathing, worsening abdominal pain, vomiting, black/tarry stools or any new/worsening/concerning symptoms. Prescriptions: No Action hydrochlorothiazide 25 mg tablet 25 mg PO DAILY Qty: 30 2RF ketorolac 10 mg tablet 10 mg PO TID PRN (Reason: pain) 5 Days Qty: 15 0RF lidocaine 5 % adhesive patch,medicated 1 patch topical DAILY PRN (Reason: pain) Qty: 15 0RF Rx Instructions: leave on most painful area for up to 12 hrs Referrals: [facility] [Provider Group] Print Language: Green[place]ic
[2025-03-02 10:15] LABS: MANUAL DIFF FLAG NO
[2025-03-02 10:20] LABS: Hematocrit 41.4 % (42.0-52.0); Hemoglobin 14.5 g/dl (14.0-18.0); Imm Gran Abs Auto 0.03 X10*3/uL (0.00-0.03); Imm Gran Pct Auto 0.3 % (0.0-0.4); Lymphocytes Absolute Auto 2.8 X10*3/uL (1.2-4.9); Mean Corpuscular HGB Conc 35.0 g/dl (31.0-36.0); Mean Corpuscular Hemoglobin 28.8 pg (27.0-33.0); Mean Corpuscular Volume 82.3 fL (80.0-98.0); NRBC Abs Auto 0.000 X10*3/uL (0.0-0.012); NRBC Pct Auto 0.0 /100WBC (0.0-0.2); Platelet Count 485 X10*3/uL (160-400); Red Blood Count 5.03 X10*6/uL (4.60-5.80); White Blood Count 10.7 X10*3/uL (4.8-10.8)
[2025-03-02 10:34] LABS: Alanine Aminotransferase 52 U/L (0-40); Albumin Level 4.7 g/dL (3.5-5.0); Alkaline Phosphatase 158 U/L (39-117); Anion Gap 11 (12-20); Aspartate Amino Transferase 29 U/L (5-37); Blood Urea Nitrogen 8 mg/dL (9-16); Calcium 8.8 mg/dL (8.4-10.2); Carbon Dioxide 22 mmol/L (22-29); Chloride 111 mmol/L (96-108); Creatinine Clr Calc Pharmacy 181.6; Estimated Glomerular Filt Rate > 60; Lipase 21 U/L (8-78); Magnesium 2.2 mg/dL (1.6-2.6); Potassium 3.8 mmol/L (3.3-5.1); Sodium 140 mmol/L (135-145); Total Protein 7.2 g/dL (6.5-8.0)
[2025-03-02] MEDS: iohexoL 350 MG/ML 100 ML INFUS..BTL IV (10:46)
--- NOTE | 2025-03-02 12:42 | ECG_ITS ---
Test Reason : CP Blood Pressure : */* mmHG Vent. Rate : 60 BPM Atrial Rate : 60 BPM P-R Int : 166 ms QRS Dur : 102 ms QT Int : 410 ms P-R-T Axes : 32 71 41 degrees QTcB Int : 410 ms Normal sinus rhythm Incomplete right bundle branch block Borderline ECG When compared with ECG of 26-Jul-2023 08:44, No significant change was found Referred By: Anny Aguirre Electronically Signed By: Chavo Glover
[2025-03-02 13:09] LABS: Troponin-I High Sensitivity < 2.7 ng/L (<3.5-35.0)
[2025-03-02 14:56] LABS: Troponin-I High Sensitivity < 2.7 ng/L (<3.5-35.0)
[2025-03-02 15:11] VITALS: BP 133/72; PULSE 67; RESP 18; TEMP 36.6; O2SAT 98
[2025-03-02 15:33] VITALS: BP 133/72; PULSE 67; RESP 18; TEMP 36.6; O2SAT 98
== END 2025-03-02 15:34 | disposition home or self-care (01) ==
PROVIDERS: Emergency Provider Emergency Medicine; PCP Internal Medicine
DX: M94.0 Chondrocostal junction syndrome [Tietze] (principal); M25.512 Pain in left shoulder; R10.11 Right upper quadrant pain; R07.9 Chest pain, unspecified
CPT/HCPCS: 36415; 74177; 80053; 83690; 83735; 84484; 85025; 93005; 96365; 96375; 99284; J0131; J1885; Q9967

== ENCOUNTER → 2025-03-02 09:42 | Outpatient (BNV) | payer MEDICAID, SELFPAY | PROVIDERS: Emergency Provider Emergency Medicine; PCP Internal Medicine; Visit Provider Family Medicine | DX: R10.11 Right upper quadrant pain (principal) | CPT/HCPCS: 74177 ==

== ENCOUNTER → 2025-03-02 12:42 | Outpatient (BNV) | payer MEDICAID, SELFPAY | PROVIDERS: Emergency Provider Emergency Medicine; PCP Internal Medicine; Visit Provider Internal Medicine Cardiovascular Disease | DX: I45.10 Unspecified right bundle-branch block (principal) | CPT/HCPCS: 93010 ==